=== PATIENT | female | born 1955 | race African-American/Black ===

== ENCOUNTER 2017-08-29 15:39 | Inpatient (IN) | payer OTHER ==
[~2017-08-29] VITALS: Ht 165.1 cm; Wt 63.5 kg
[2017-08-29 16:19] VITALS: BP 78/62
[2017-08-29 16:48] LABS: BASOPHILS % (AUTO) 0.3 % (0.0-2.0); EOSINOPHILS % (AUTO) 0.3 % (0.0-3.0); HEMATOCRIT 31.7 % (37.0-47.0); HEMOGLOBIN 10.4 G/DL (12.0-16.0); LYMPHOCYTES % (AUTO) 7.9 % (20.0-45.0); MEAN CORPUSCULAR VOLUME 81 FL (80-99); MONOCYTES % (AUTO) 12.2 % (1.0-10.0); NEUTROPHILS % (AUTO) 79.3 % (45.0-75.0); PLATELET COUNT 234 K/UL (150-450); RED BLOOD COUNT 3.93 M/UL (4.20-5.40); RED CELL DISTRIBUTION WIDTH 15.3 % (11.6-14.8); WHITE BLOOD COUNT 15.4 K/UL (4.8-10.8)
[2017-08-29 17:19] LABS: ANION GAP 15 mmol/L (5-15); BLOOD UREA NITROGEN 106 mg/dL (7-18); CALCIUM 8.1 MG/DL (8.5-10.1); CARBON DIOXIDE 21 MMOL/L (21-32); CHLORIDE 100 MMOL/L (98-107); CREATININE 7.3 MG/DL (0.55-1.30); POTASSIUM 4.1 MMOL/L (3.5-5.1); SODIUM 136 MMOL/L (136-145)
[2017-08-29 17:32] LABS: ALANINE AMINOTRANSFERASE 16 U/L (12-78); ALBUMIN 2.6 G/DL (3.4-5.0); ALBUMIN/GLOBULIN RATIO 0.5 (1.0-2.7); ALKALINE PHOSPHATASE 89 U/L (46-116); ASPARTATE AMINO TRANSFERASE 21 U/L (15-37); BILIRUBIN,TOTAL 0.2 MG/DL (0.2-1.0); CKMB 6.6 NG/ML (0.0-3.6); CREATINE KINASE 170 U/L (26-308)
[2017-08-29 17:37] LABS: APPEARANCE,URINE CLOUDY; BILIRUBIN, URINE 2+ (NEGATIVE); GLUCOSE, URINE (UA) NEGATIVE (NEGATIVE); KETONES,URINE NEGATIVE (NEGATIVE); LEUKOCYTE ESTERASE ,URINE 2+ (NEGATIVE); NITRITE,URINE NEGATIVE (NEGATIVE); PH,URINE 5 (4.5-8.0); PROTEIN,URINE 1+ (NEGATIVE); UROBILINOGEN,URINE 1 MG/DL (0.0-1.0)
[2017-08-29] MEDS ORDERED: cefTRIAXone 1 GM in NS 55 ML IVPB ONE (17:45)
[2017-08-29 17:58] LABS: COLOR,URINE YELLOW
--- NOTE | 2017-08-29 17:58 | Diagnostic Imaging Report ---
Indication: Shortness of breath Technique: XRAY Chest 1v Comparison: None Findings: Heart size and mediastinal contours are within normal limits. Atherosclerotic calcification is noted in the aortic arch. There are increased interstitial markings with a basilar and peripheral predominance. Subtle asymmetry of findings on the left where there is subtle hazy opacity. Developing infiltrate is not entirely excluded. No pleural effusion or pneumothorax. No acute osseous abnormality seen. Impression: Reticular markings with a peripheral and basilar predominance suggesting interstitial lung disease. Slight asymmetric haziness in the left lower lung. Developing infectious infiltrate not entirely excluded. Clinical correlation follow-up exam recommended.
[2017-08-29] MEDS ORDERED: Bactrim-DS 1 tab ORAL ONE (18:30)
[2017-08-29 18:43] VITALS: BP 110/58
--- NOTE | 2017-08-29 18:48 | Emergency Room Report ---
History of Present Illness General Chief Complaint: General Complaint Source: Patient, EMS Present Illness HPI Patient presents with complaints of shortness of breath Patient was found in her car Reports that she has been sleeping therefore last few days Extremely weak Denies any chest pain Also reports diarrhea Patient has seen blood in the diarrhea as well Patient reports being HIV positive Has cardiac disease denies any history of kidney issues patient reports drug abuse in the recent past Allergies: Coded Allergies: No Known Allergies (Unverified , 08/29/17) Patient History Past Medical History: see triage record Pertinent Family History: none Reviewed Nursing Documentation: PMH: Agreed; PSxH: Agreed Nursing Documentation-PMH Past Medical History: No History, Except For Hx Hypertension: Yes Hx Asthma: Yes History Of Psychiatric Problem: Yes - DRUG ABUSE Review of Systems All Other Systems: negative except mentioned in HPI Physical Exam Vital Signs Date Time Temp Pulse Resp B/P (MAP) Pulse Ox O2 Delivery O2 Flow Rate FiO2 08/29/17 15:32 97.5 90 20 83/38 90 Room Air 97.5 Sp02 EP Interpretation: reviewed, abnormal - Low interpretation a 90% on 2 L, patient is saturating at 98% which is normal oxygenation General Appearance: no apparent distress - However appears weak Head: normocephalic, atraumatic Eyes: bilateral eye PERRL, bilateral eye EOMI ENT: hearing grossly normal, normal pharynx, TMs + canals normal, uvula midline Neck: full range of motion, supple, no meningismus, no bony tend Respiratory: no respiratory distress, no retraction, no accessory muscle use, crackles - Both lower lobes Cardiovascular #1: normal peripheral pulses, regular rate, rhythm, no edema, no gallop, no JVD, no murmur Gastrointestinal: normal bowel sounds, non tender, soft, no mass, no organomegaly, non-distended, no guarding, no hernia, no pulsatile mass, no rebound Genitourinary: no CVA tenderness Musculoskeletal: normal inspection Neurologic: oriented x3, responsive, sightseeing guide III-XII nml as tested, motor strength/ tone normal, sensory intact Psychiatric: mood/affect normal Skin: other - Patient appears disheveled, multiple skin markings with possible needle coleman also gannon, Lymphatic: normal inspection, no adenopathy Medical Decision Making Diagnostic Impression: Primary Impression: Pneumonia ER Course Patient initial presentation was hypotensive and hypoxic Has done significantly better with IV hydration and oxygenation Patient provided with antibiotics At this time given the complaints in the general presentation will require telemetry admission for further care Labs Test 08/29/17 16:15 08/29/17 17:18 White Blood Count 15.4 K/UL (4.8-10.8) Red Blood Count 3.93 M/UL (4.20-5.40) Hemoglobin 10.4 G/DL (12.0-16.0) Hematocrit 31.7 % (37.0-47.0) Mean Corpuscular Volume 81 FL (80-99) Mean Corpuscular Hemoglobin 26.6 PG (27.0-31.0) Mean Corpuscular Hemoglobin Concent 32.9 G/DL (32.0-36.0) Red Cell Distribution Width 15.3 % (11.6-14.8) Platelet Count 234 K/UL (150-450) Mean Platelet Volume 7.1 FL (6.5-10.1) Neutrophils (%) (Auto) 79.3 % (45.0-75.0) Lymphocytes (%) (Auto) 7.9 % (20.0-45.0) Monocytes (%) (Auto) 12.2 % (1.0-10.0) Eosinophils (%) (Auto) 0.3 % (0.0-3.0) Basophils (%) (Auto) 0.3 % (0.0-2.0) Sodium Level 136 MMOL/L (136-145) Potassium Level 4.1 MMOL/L (3.5-5.1) Chloride Level 100 MMOL/L (98-107) Carbon Dioxide Level 21 MMOL/L (21-32) Anion Gap 15 mmol/L (5-15) Blood Urea Nitrogen 106 mg/dL (7-18) Creatinine 7.3 MG/DL (0.55-1.30) Estimat Glomerular Filtration Rate 5.6 mL/min (>60) Glucose Level 95 MG/DL (74-106) Lactic Acid Level 1.30 mmol/L (0.66-2.22) Calcium Level 8.1 MG/DL (8.5-10.1) Total Bilirubin 0.2 MG/DL (0.2-1.0) Aspartate Amino Transf (AST/SGOT) 21 U/L (15-37) Alanine Aminotransferase (ALT/SGPT) 16 U/L (12-78) Alkaline Phosphatase 89 U/L (46-116) Total Creatine Kinase 170 U/L (26-308) Creatine Kinase MB 6.6 NG/ML (0.0-3.6) Creatine Kinase MB Relative Index 3.8 Troponin I 0.041 ng/mL (0.000-0.056) Pro-B-Type Natriuretic Peptide 895 pg/mL (0-125) Total Protein 7.6 G/DL (6.4-8.2) Albumin 2.6 G/DL (3.4-5.0) Globulin 5.0 g/dL Albumin/Globulin Ratio 0.5 (1.0-2.7) Lipase 69 U/L (73-393) Urine Color Yellow Urine Appearance Cloudy Urine pH 5 (4.5-8.0) Urine Specific [place] 1.025 (1.005-1.035) Urine Protein 1+ (NEGATIVE) Urine Glucose (UA) Negative (NEGATIVE) Urine Ketones Negative (NEGATIVE) Urine Occult Blood Negative (NEGATIVE) Urine Nitrite Negative (NEGATIVE) Urine Bilirubin 2+ (NEGATIVE) Urine Ictotest Positive Urine Urobilinogen 1 MG/DL (0.0-1.0) Urine Leukocyte Esterase 2+ (NEGATIVE) Urine RBC 0-2 /HPF (0 - 2) Urine WBC 0-2 /HPF (0 - 2) Urine Squamous Epithelial Cells Few /LPF (NONE/OCC) Urine Amorphous Sediment Moderate /LPF (NONE) Urine Bacteria Few /HPF (NONE) Urine Opiates Screen Negative (NEGATIVE) Urine Barbiturates Screen Negative (NEGATIVE) Phencyclidine (PCP) Screen Negative (NEGATIVE) Urine Amphetamines Screen Positive (NEGATIVE) Urine Benzodiazepines Screen Negative (NEGATIVE) Urine Cocaine Screen Positive (NEGATIVE) Urine Marijuana (THC) Screen Negative (NEGATIVE) Rhythm Strip Diag. Results EP Interpretation: yes Rate: 88 Rhythm: NSR, no PVC's, no ectopy Chest X-Ray Diagnostic Results Chest X-Ray Diagnostic Results : Chest X-Ray Ordered: Yes # of Views/Limited/Complete: 1 View Indication: Shortness of Breath EP Interpretation: Yes Interpretation: no consolidation, no effusion, no pneumothorax, other - Mild his noticed left lower lobe compared to right side questionable interstitial disease versus acute change, Impression: Other - Left lower lobe infiltrate Electronically Signed by: Ali Jamehdor, DO Last Vital Signs Date Time Temp Pulse Resp B/P (MAP) Pulse Ox O2 Delivery O2 Flow Rate FiO2 08/29/17 16:19 90 17 78/62 98 Room Air 08/29/17 15:32 97.5 97.5 Status: improved Disposition: ADMITTED INPATIENT Condition: Serious Referrals: [facility],REFERR[facility] (PCP) Abiola Caruso DO Aug 29, 2017 18:47
[2017-08-29] MEDS ORDERED: UNOBMED (19:14)
[2017-08-29] MEDS ORDERED: LORazepam Inj 2mg/ml 1ml IV PRN (19:45)
[2017-08-29] MEDS ORDERED: Albuterol/Ipratropium 3ml neb HHN PRN (19:45)
[2017-08-29] MEDS ORDERED: Morphine Sulfate 4mg/ml Inj IVP PRN (19:45)
[2017-08-29] MEDS ORDERED: Miralax 17gm pkt ORAL PRN (19:45)
[2017-08-29 20:45] VITALS: BP 114/54
[2017-08-29] MEDS ORDERED: PPD Tuberculin Skin Test 5TU IDERMAL ONE (21:00)
[2017-08-29] MEDS ORDERED: Vancomycin 1 GM in D5W 275 ML IVPB ONE (23:00)
[2017-08-30] VITALS: BP 101/59
[2017-08-30 04:00] VITALS: BP 99/52
[2017-08-30] MEDS ORDERED: LORazepam Inj 2mg/ml 1ml IV PRN ×2 (08:45→17:30)
--- NOTE | 2017-08-30 08:56 | Consultation ---
Consult Note Consult Note asked to eval for renal failure- Patient presents with complaints of shortness of breath Patient was found in her car Reports that she has been sleeping therefore last few days Extremely weak Denies any chest pain Also reports diarrhea Patient has seen blood in the diarrhea as well Patient reports being HIV positive Has cardiac disease denies any history of kidney issues patient reports drug abuse in the recent past Past Medical History: No History, Except For Hx Hypertension: Yes Hx Asthma: Yes History Of Psychiatric Problem: Yes - DRUG ABUSE Assessment/Plan Renal failure , Acute / Chronic Anemia Amphetamine and coccaine abuse Plan: [facility] Hydrate 2D Echo DIANE GOFF Aug 30, 2017 08:56
[2017-08-30] MEDS ORDERED: D5NS 1,000 ML IV SCH (09:30)
[2017-08-30 10:54] LABS: HEMATOCRIT 30.7 % (37.0-47.0); HEMOGLOBIN 9.7 G/DL (12.0-16.0); MEAN CORPUSCULAR VOLUME 81 FL (80-99); PLATELET COUNT 237 K/UL (150-450); RED BLOOD COUNT 3.77 M/UL (4.20-5.40); RED CELL DISTRIBUTION WIDTH 15.3 % (11.6-14.8); WHITE BLOOD COUNT 9.6 K/UL (4.8-10.8)
[2017-08-30] MEDS ORDERED: cefTRIAXone 1gm/D5W 55ml IVPB SCH ×2 (11:00)
[2017-08-30 11:11] LABS: ALBUMIN 2.3 G/DL (3.4-5.0); ANION GAP 6 mmol/L (5-15); BLOOD UREA NITROGEN 67 mg/dL (7-18); CARBON DIOXIDE 27 MMOL/L (21-32); CHLORIDE 104 MMOL/L (98-107); PHOSPHORUS 3.2 MG/DL (2.5-4.9); POTASSIUM 3.4 MMOL/L (3.5-5.1); SODIUM 137 MMOL/L (136-145)
[2017-08-30 11:36] LABS: ALANINE AMINOTRANSFERASE 16 U/L (12-78); ALBUMIN 2.2 G/DL (3.4-5.0); ALBUMIN/GLOBULIN RATIO 0.5 (1.0-2.7); ALKALINE PHOSPHATASE 79 U/L (46-116); ANION GAP 9 mmol/L (5-15); ASPARTATE AMINO TRANSFERASE 21 U/L (15-37); BILIRUBIN,TOTAL 0.2 MG/DL (0.2-1.0); BLOOD UREA NITROGEN 66 mg/dL (7-18); CARBON DIOXIDE 26 MMOL/L (21-32); CHLORIDE 103 MMOL/L (98-107); CHOLESTEROL 107 MG/DL (< 200); CREATINE KINASE 131 U/L (26-308); FERRITIN 67 NG/ML (8-388); GAMMA GLUTAMYL TRANSPEPTIDASE < 3 U/L (5-85); HDL CHOLESTEROL 33 MG/DL (40-60); PHOSPHORUS 3.2 MG/DL (2.5-4.9); POTASSIUM 3.4 MMOL/L (3.5-5.1); SODIUM 138 MMOL/L (136-145); TRIGLYCERIDES 104 MG/DL (30-150)
[2017-08-30] MEDS ORDERED: Morphine Sulfate 4mg/ml Inj IVP PRN ×2 (11:45→17:30)
[2017-08-30 11:59] LABS: % IRON SATURATION 7 % (15-50); IRON 18 ug/dL (50-175); TOTAL IRON BINDING CAPACITY 247 ug/dL (250-450)
--- NOTE | 2017-08-30 12:00 | Consultation ---
DATE OF CONSULTATION: 08/30/2017 GASTROENTEROLOGY CONSULTATION CONSULTING PHYSICIAN: Alber Del Valle M.D. CHIEF COMPLAINT: Weight loss, rectal bleeding, abdominal pain. HISTORY OF PRESENT ILLNESS: This is a 61-year-old female, diagnosed of HIV, who was admitted to the hospital with complaint of having abdominal pain, bloody stools, diarrhea for 3 days, losing weight. She is also actively using drugs. She admits to smoking cocaine. PAST MEDICAL HISTORY: 1. HIV. 2. Hypertension. 3. Borderline diabetes. ALLERGIES: No known drug allergies. MEDICATIONS: Please see medication reconciliation list. SOCIAL HISTORY: She smokes one pack of cigarettes for every 3 days. Denies any alcohol usage. Admits to using cocaine. FAMILY HISTORY: Noncontributory. PAST SURGICAL HISTORY: Some arm surgeries. No abdominal surgeries. REVIEW OF SYSTEMS: Twelve-point review of systems was performed and pertinent positives in HPI. PHYSICAL EXAMINATION: VITAL SIGNS: Temperature 97.7, pulse 81, respirations 19, and blood pressure 99/52. HEENT: Normocephalic and atraumatic. Sclerae anicteric. NECK: Supple. No evidence of obvious lymphadenopathy. CARDIOVASCULAR: Regular rate and rhythm. Plus S1, S2. No obvious murmur. LUNGS: Clear to auscultation bilaterally. ABDOMEN: Positive bowel sounds. Soft and nontender. No rebound. No guarding. No peritoneal sign. EXTREMITIES: No cyanosis, no clubbing, no edema. LABORATORY DATA: White count 9.6, hemoglobin 9.7, and platelet count 237,000. Sodium 137, potassium 3.4, BUN 67, creatinine 3.0. Admission creatinine was 7.3. ASSESSMENT AND PLAN: This is a 61-year-old female with HIV, weight loss, possibly GI bleeding, diarrhea, acute renal insufficiency with BUN on admission of 106 and creatinine 7.3. PLAN: Anemia workup. Send stool for OB. Send stool for culture. Send stool for C. difficile. Start the patient on Marinol for appetite stimulant. Most probably, HIV-related weight loss. Follow with ID. Follow labs. Possible GI procedure on Saturday if needed. Alber Del Valle M.D. DR: Mary JOB#: [id number] CC:
[2017-08-30 12:31] LABS: APPEARANCE,URINE CLEAR; BILIRUBIN, URINE NEGATIVE (NEGATIVE); COLOR,URINE PALE YELLOW; GLUCOSE, URINE (UA) NEGATIVE (NEGATIVE); KETONES,URINE NEGATIVE (NEGATIVE); LEUKOCYTE ESTERASE ,URINE NEGATIVE (NEGATIVE); NITRITE,URINE NEGATIVE (NEGATIVE); PH,URINE 6 (4.5-8.0); PROTEIN,URINE 2+ (NEGATIVE); UROBILINOGEN,URINE NORMAL MG/DL (0.0-1.0)
--- NOTE | 2017-08-30 15:28 | History and Physical ---
History of Present Illness General Date patient seen: Aug 30, 2017 Reason for Hospitalization: General Complaint Present Illness HPI 61 year old female with hx of HIV presents with complaints of shortness of breath. Extremely weak, with diarrhea for some time. She looked cachectic and dehydrated. Pt was in renal failure and admitted to telemetry for further treatment. Allergies: Coded Allergies: No Known Allergies (Unverified , 08/29/17) Medication History Miscellaneous Medications Unable to Obtain Medications (Unable To Obtain Meds), (Reported) Patient History Healthcare decision maker Resuscitation status Advanced Directive on File Past Medical/Surgical History Past Medical/Surgical History: (1) HIV disease Review of Systems All Other Systems: negative except mentioned in HPI Physical Exam General Appearance: WD/WN Lines, tubes and drains: peripheral HEENT: normocephalic, atraumatic Neck: non-tender, normal alignment Respiratory/Chest: chest wall non-tender, lungs clear Breasts: no masses Cardiovascular/Chest: normal peripheral pulses Abdomen: normal bowel sounds, non tender Extremities: normal range of motion, non-tender Skin Exam: normal pigmentation Last 24 Hour Vital Signs Date Time Temp Pulse Resp B/P (MAP) Pulse Ox O2 Delivery O2 Flow Rate FiO2 08/30/17 12:00 75 08/30/17 08:37 76 20 Room Air 08/30/17 08:00 77 08/30/17 04:00 97.7 81 19 99/52 93 Room Air 97.7 08/30/17 04:00 84 08/30/17 00:00 85 08/30/17 00:00 97.6 89 18 101/59 97 Room Air 97.6 08/29/17 21:50 97.5 87 12 114/54 100 Room Air 97.5 08/29/17 20:45 87 12 114/54 100 Room Air 08/29/17 18:43 85 14 110/58 99 Room Air 08/29/17 16:19 90 17 78/62 98 Room Air 08/29/17 15:32 97.5 90 20 83/38 90 Room Air 97.5 Intake and Output 08/29/17 08/30/17 19:00 07:00 Intake Total 0 ml 1318.3 ml Output Total 400 ml Balance 0 ml 918.3 ml Intake Oral 0 ml IV Total 1318.3 ml Output Urine Total 400 ml # Voids 4 # Bowel Movements 2 Laboratory Tests Test 08/29/17 16:15 08/29/17 17:18 08/30/17 10:30 08/30/17 11:40 White Blood Count 15.4 K/UL (4.8-10.8) H Pending Red Blood Count 3.93 M/UL (4.20-5.40) L 3.77 M/UL (4.20-5.40) L Hemoglobin 10.4 G/DL (12.0-16.0) L 9.7 G/DL (12.0-16.0) L Hematocrit 31.7 % (37.0-47.0) L 30.7 % (37.0-47.0) L Mean Corpuscular Volume 81 FL (80-99) 81 FL (80-99) Mean Corpuscular Hemoglobin 26.6 PG (27.0-31.0) L 25.7 PG (27.0-31.0) L Mean Corpuscular Hemoglobin Concent 32.9 G/DL (32.0-36.0) 31.6 G/DL (32.0-36.0) L Red Cell Distribution Width 15.3 % (11.6-14.8) H 15.3 % (11.6-14.8) H Platelet Count 234 K/UL (150-450) 237 K/UL (150-450) Mean Platelet Volume 7.1 FL (6.5-10.1) 6.4 FL (6.5-10.1) L Neutrophils (%) (Auto) 79.3 % (45.0-75.0) H % (45.0-75.0) Lymphocytes (%) (Auto) 7.9 % (20.0-45.0) L % (20.0-45.0) Monocytes (%) (Auto) 12.2 % (1.0-10.0) H % (1.0-10.0) Eosinophils (%) (Auto) 0.3 % (0.0-3.0) % (0.0-3.0) Basophils (%) (Auto) 0.3 % (0.0-2.0) % (0.0-2.0) Sodium Level 136 MMOL/L (136-145) 138 MMOL/L (136-145) Potassium Level 4.1 MMOL/L (3.5-5.1) 3.4 MMOL/L (3.5-5.1) L Chloride Level 100 MMOL/L (98-107) 103 MMOL/L (98-107) Carbon Dioxide Level 21 MMOL/L (21-32) 26 MMOL/L (21-32) Anion Gap 15 mmol/L (5-15) 9 mmol/L (5-15) Blood Urea Nitrogen 106 mg/dL (7-18) H 66 mg/dL (7-18) H Creatinine 7.3 MG/DL (0.55-1.30) H 3.0 MG/DL (0.55-1.30) H Estimat Glomerular Filtration Rate 5.6 mL/min (>60) 19.1 mL/min (>60) Glucose Level 95 MG/DL (74-106) 101 MG/DL (74-106) Lactic Acid Level 1.30 mmol/L (0.66-2.22) Calcium Level 8.1 MG/DL (8.5-10.1) L 8.0 MG/DL (8.5-10.1) L Total Bilirubin 0.2 MG/DL (0.2-1.0) 0.2 MG/DL (0.2-1.0) Aspartate Amino Transf (AST/SGOT) 21 U/L (15-37) 21 U/L (15-37) Alanine Aminotransferase (ALT/SGPT) 16 U/L (12-78) 16 U/L (12-78) Alkaline Phosphatase 89 U/L (46-116) 79 U/L (46-116) Total Creatine Kinase 170 U/L (26-308) 131 U/L (26-308) Creatine Kinase MB 6.6 NG/ML (0.0-3.6) H Creatine Kinase MB Relative Index 3.8 Troponin I 0.041 ng/mL (0.000-0.056) Pro-B-Type Natriuretic Peptide 895 pg/mL (0-125) H 166 pg/mL (0-125) H Total Protein 7.6 G/DL (6.4-8.2) 6.9 G/DL (6.4-8.2) Albumin 2.6 G/DL (3.4-5.0) L 2.2 G/DL (3.4-5.0) L Globulin 5.0 g/dL 4.7 g/dL Albumin/Globulin Ratio 0.5 (1.0-2.7) L 0.5 (1.0-2.7) L Lipase 69 U/L (73-393) L Urine Color Yellow Pale yellow Urine Appearance Cloudy Clear Urine pH 5 (4.5-8.0) 6 (4.5-8.0) Urine Specific [place] 1.025 (1.005-1.035) 1.015 (1.005-1.035) Urine Protein 1+ (NEGATIVE) H 2+ (NEGATIVE) H Urine Glucose (UA) Negative (NEGATIVE) Negative (NEGATIVE) Urine Ketones Negative (NEGATIVE) Negative (NEGATIVE) Urine Occult Blood Negative (NEGATIVE) 2+ (NEGATIVE) H Urine Nitrite Negative (NEGATIVE) Negative (NEGATIVE) Urine Bilirubin 2+ (NEGATIVE) H Negative (NEGATIVE) Urine Ictotest Positive Urine Urobilinogen 1 MG/DL (0.0-1.0) H Normal MG/DL (0.0-1.0) Urine Leukocyte Esterase 2+ (NEGATIVE) H Negative (NEGATIVE) Urine RBC 0-2 /HPF (0 - 2) 2-4 /HPF (0 - 2) H Urine WBC 0-2 /HPF (0 - 2) 0-2 /HPF (0 - 2) Urine Squamous Epithelial Cells Few /LPF (NONE/OCC) Few /LPF (NONE/OCC) Urine Amorphous Sediment Moderate /LPF (NONE) H Urine Bacteria Few /HPF (NONE) Occasional /HPF (NONE) Urine Opiates Screen Negative (NEGATIVE) Urine Barbiturates Screen Negative (NEGATIVE) Phencyclidine (PCP) Screen Negative (NEGATIVE) Urine Amphetamines Screen Positive (NEGATIVE) H Urine Benzodiazepines Screen Negative (NEGATIVE) Urine Cocaine Screen Positive (NEGATIVE) H Urine Marijuana (THC) Screen Negative (NEGATIVE) Differential Total Cells Counted 100 Neutrophils % (Manual) 81 % (45-75) H Lymphocytes % (Manual) 14 % (20-45) L Monocytes % (Manual) 3 % (1-10) Eosinophils % (Manual) 2 % (0-3) Basophils % (Manual) 0 % (0-2) Band Neutrophils 0 % (0-8) Lymphocytes Pending Platelet Estimate Adequate Platelet Morphology Normal Hypochromasia 1+ Anisocytosis 1+ Erythrocyte Sedimentation Rate 94 MM/HR (0-30) H Reticulocyte Count 0.8 % (0.0-2.0) Prothrombin Time 10.3 SEC (9.30-11.50) Prothromb Time International Ratio 1.0 (0.9-1.1) Activated Partial Thromboplast Time 31 SEC (23-33) Hemoglobin A1c 6.8 % (4.3-6.0) H Uric Acid 11.1 MG/DL (2.6-7.2) H Phosphorus Level 3.2 MG/DL (2.5-4.9) Magnesium Level 2.6 MG/DL (1.8-2.4) H Iron Level 18 ug/dL (50-175) L Total Iron Binding Capacity 247 ug/dL (250-450) L Percent Iron Saturation 7 % (15-50) L Unsaturated Iron Binding 229 ug/dL (112-346) Ferritin 67 NG/ML (8-388) Gamma Glutamyl Transpeptidase < 3 U/L (5-85) L C-Reactive Protein, Quantitative 21.1 mg/dL (0.00-0.90) H Triglycerides Level 104 MG/DL (30-150) Cholesterol Level 107 MG/DL (< 200) LDL Cholesterol 62 mg/dL (<100) HDL Cholesterol 33 MG/DL (40-60) L Cholesterol/HDL Ratio 3.2 (3.3-4.4) L Vitamin B12 Level 440 PG/ML (193-986) Folate 12.2 NG/ML (8.6-58.9) Thyroid Stimulating Hormone (TSH) 1.609 uiU/mL (0.358-3.740) Percent CD3 Cells Pending Absolute CD3 Count Pending Percent CD4 Cells Pending Absolute CD4 Count Pending T-Lymphocyte CD4/CD8 Ratio Pending Percent CD8 Cells Pending Absolute CD8 Count Pending Urine Eosinophils None seen Urine Random Sodium 53 mmol/L (20-110) Urine Potassium Timed 13 mmol/L (12-62) Microbiology Date/Time Source Procedure Growth Status 08/29/17 16:47 Nasal Nares Influenza Types A,B Antigen (CHIDI) - Final Complete Height (Feet): 5 Height (Inches): 4.00 Weight (Pounds): 140 Medications Current Medications Medications (Trade) Dose Ordered Sig/Castillo Route PRN Reason Start Time Stop Time Status Last Admin Dose Admin Acetaminophen (Tylenol) 650 mg Q4H PRN ORAL FEVER 08/29/17 19:45 09/28/17 19:44 Albuterol/ Ipratropium (Albuterol/ Ipratropium) 3 ml Q4H PRN HHN Shortness of Breath 08/29/17 19:45 09/03/17 19:44 Ceftriaxone Sodium 1 gm/ Dextrose 55 ml @ 110 mls/hr Q24H IVPB 08/30/17 11:00 09/06/17 10:59 08/30/17 11:10 Dextrose (Dextrose 50%) 25 ml STAT PRN IV Hypoglycemia BS 60-69 mg/dL 08/29/17 20:15 09/28/17 20:14 Dextrose (Dextrose 50%) 50 ml STAT PRN IV Hypoglycemia BS<60mg/dL 08/29/17 19:45 09/28/17 19:44 Dextrose/Sodium Chloride 1,000 ml @ 75 mls/hr [id number] IV 08/30/17 09:30 09/29/17 09:29 08/30/17 11:14 Dronabinol (Marinol) 2.5 mg BID ORAL 08/30/17 18:00 09/29/17 17:59 Lorazepam (Ativan 2mg/ml 1ml) 1 mg Q4H PRN IV For Anxiety 08/30/17 08:45 09/05/17 19:44 Morphine Sulfate (Morphine Sulfate) 2 mg Q4H PRN IVP Severe Pain (Pain Scale 7-10) 08/30/17 11:45 09/05/17 19:44 Ondansetron HCl (Zofran) 4 mg Q6H PRN IVP Nausea & Vomiting 08/29/17 19:45 09/28/17 19:44 Polyethylene Glycol (Miralax) 17 gm DAILYPRN PRN ORAL Constipation 08/29/17 19:45 09/28/17 19:44 Vancomycin HCl (Vanco rx to dose) 1 ea DAILYPRN PRN MISC RX TO DOSE PROTOCOL 08/29/17 22:00 09/28/17 21:59 Assessment/Plan Problem List: (1) ATN (acute tubular necrosis) ICD Codes: N17.0 - Acute kidney failure with tubular necrosis SNOMED: 48224867 (2) Severe protein-calorie malnutrition ICD Codes: E43 - Unspecified severe protein-calorie malnutrition SNOMED: 555869699 (3) HIV disease ICD Codes: B20 - Human immunodeficiency virus [HIV] disease SNOMED: 72683499 Assessment/Plan IV hydration check electrolytes renal US ID and GI evaluation. Cordell Mitchell MD Aug 30, 2017 15:28
[2017-08-30] MEDS ORDERED: Iron Sucrose 200 MG in NS 110 ML IV ONE (17:00)
[2017-08-30] MEDS: D5NS 1,000 ML IV SCH (17:27)
[2017-08-30] MEDS ORDERED: Albuterol/Ipratropium 3ml neb HHN PRN (17:30)
[2017-08-30] MEDS ORDERED: Miralax 17gm pkt ORAL PRN (17:30)
[2017-08-30] MEDS: Dronabinol 2.5mg Cap ORAL SCH (17:34)
[2017-08-30] MEDS ORDERED: Dronabinol 2.5mg Cap ORAL SCH (18:00)
[2017-08-30 20:00] VITALS: BP 97/59
--- NOTE | 2017-08-30 22:55 | Consultation ---
Consult Note Consult Note Note was dictated # ? Corey Hutchison MD Aug 30, 2017 22:55
[2017-08-31] VITALS (7 sets, daily range): BP systolic 92–110; BP diastolic 55–74
--- NOTE | 2017-08-31 04:00 | Consultation ---
DATE OF CONSULTATION: 08/31/2017 INFECTIOUS DISEASE CONSULTATION CONSULTING PHYSICIAN: Corey Hutchison M.D. HISTORY OF PRESENT ILLNESS: The patient is a 61-year-old female who came to the hospital due to shortness of breath, however, no cough. No fever or chills. The patient has also been complaining of having lower abdominal pain associated with diarrhea x3. The patient mentioned she has seen blood clots passing with bowel movements recently. Infectious Disease consultation has been requested for further evaluation of the patient's antibiotic management. The patient has a history of HIV diagnosed in 1996. According to her, she has had regular followup with her HIV provider at [facility]. The patient's CD4 count is over 200 and has undetectable viral load. PAST MEDICAL HISTORY: 1. History of HIV, reportedly CD4 count of more than 200 and undetectable viral load. 2. The patient is a smoker of cigarette and also smokes cocaine. 3. History of IV drug abuse in the past. According to patient, has no history of hepatitis. MEDICATIONS: The patient does not recall the name of her HIV medications. The patient has been started on IV Rocephin and vancomycin. ALLERGIES: No known drug allergies. SOCIAL HISTORY: As mentioned above. FAMILY HISTORY: Not contributing PHYSICAL EXAMINATION: VITAL SIGNS: Temperature 98 degrees, blood pressure 97/59, pulse 86, and respiratory rate 18. HEENT: Mild pale conjunctivae. NECK: No lymphadenopathy. CHEST: Clear. HEART: S1 and S2. ABDOMEN: Soft. Lower abdominal tenderness. EXTREMITIES: No cyanosis. NEUROLOGIC: Awake. LABORATORY AND DIAGNOSTIC DATA: White blood cell count is 15.4, today is 9.6; hemoglobin 9.7; and platelets 237. UA unremarkable. BUN 66 and creatinine 3. ALT, AST, and alkaline phosphatase unremarkable. CD4 count pending. Influenza screening is negative. Chest x-ray marking with perihilar and basilar predominance suggesting interstitial lung disease. ASSESSMENT: The patient is a 61-year-old female with, 1. Human immunodeficiency virus, diagnosed in 1996 with undetectable viral load and CD4 count more than 200 (unknown list of HIV medications). 2. Diarrhea x3 days. 3. ? lower gastrointestinal bleed. 4. Rule out colitis, ischemic versus infectious. 5. History of recent weight loss in the last four days due to lack of appetite. 6. Afebrile. 7. Status post leukocytosis. 8. Doubt pneumonia or opportunistic infections in view of the patient's CD4 count of more than 200 and lack of cough and fever. 9. Normal lactic acid ( to have ischemic colitis). PLAN: 1. We will continue the patient on Rocephin, add Flagyl. 2. We will hold IV vancomycin. 3. We will send stool for C. difficile culture, occult blood, ova and parasites. 4. Monitor CBC. 5. Monitor BMP. 6. Follow Nephrology recommendations regarding renal insufficiency. 7. Recommend GI consultation. 8. Blood culture. 9. Based on the patient's clinical course and labs, we will give further recommendations. 10. The patient was advised to bring her list of medications and to resume in this hospitalization. This was communicated with the nurse. Corey Hutchison M.D. DR: DIANA JOB#: [id number] CC:
[2017-08-31] MEDS: D5NS 1,000 ML IV SCH ×3 (04:14→19:01)
[2017-08-31] MEDS: metroNIDAZOLE 500mg tab ORAL SCH ×3 (05:12→21:51)
[2017-08-31 07:12] LABS: BASOPHILS % (AUTO) 0.8 % (0.0-2.0); EOSINOPHILS % (AUTO) 1.5 % (0.0-3.0); HEMATOCRIT 30.3 % (37.0-47.0); HEMOGLOBIN 9.7 G/DL (12.0-16.0); LYMPHOCYTES % (AUTO) 25.6 % (20.0-45.0); MEAN CORPUSCULAR VOLUME 84 FL (80-99); MONOCYTES % (AUTO) 12.7 % (1.0-10.0); NEUTROPHILS % (AUTO) 59.4 % (45.0-75.0); PLATELET COUNT 232 K/UL (150-450); RED BLOOD COUNT 3.62 M/UL (4.20-5.40); RED CELL DISTRIBUTION WIDTH 15.5 % (11.6-14.8); WHITE BLOOD COUNT 8.5 K/UL (4.8-10.8)
[2017-08-31 07:43] LABS: ALANINE AMINOTRANSFERASE 14 U/L (12-78); ALBUMIN 2.3 G/DL (3.4-5.0); ALBUMIN/GLOBULIN RATIO 0.5 (1.0-2.7); ALKALINE PHOSPHATASE 79 U/L (46-116); ANION GAP 4 mmol/L (5-15); ASPARTATE AMINO TRANSFERASE 18 U/L (15-37); BILIRUBIN,TOTAL 0.2 MG/DL (0.2-1.0); BLOOD UREA NITROGEN 36 mg/dL (7-18); CALCIUM 8.3 MG/DL (8.5-10.1); CARBON DIOXIDE 30 MMOL/L (21-32); CHLORIDE 109 MMOL/L (98-107); CREATININE 1.5 MG/DL (0.55-1.30); POTASSIUM 3.9 MMOL/L (3.5-5.1); SODIUM 143 MMOL/L (136-145)
[2017-08-31 08:12] LABS: PHOSPHORUS 2.6 MG/DL (2.5-4.9)
--- NOTE | 2017-08-31 09:20 | Diagnostic Imaging Report ---
Indication:Elevated Bun and Creatinine. Technique: Grayscale and duplex Doppler imaging of the kidneys performed. Comparison: None Findings: The size, contour, and echogenicity of both kidneys are within normal limits. Both kidneys between 10 and 11 cm. Minimal pyelocaliectasis demonstrated. There is no hydronephrosis. The IVC and urinary bladder are unremarkable. Monzon catheter noted. Impression: Negative study
[2017-08-31] MEDS: Dronabinol 2.5mg Cap ORAL SCH ×2 (10:00→18:00)
--- NOTE | 2017-08-31 11:34 | Nephrology Progress Note ---
Assessment/Plan Problem List: (1) ATN (acute tubular necrosis) (2) Severe protein-calorie malnutrition (3) HIV disease Assessment Renal failure , Acute / Chronic Anemia Amphetamine and coccaine abuse Plan: [facility]J Hydrate 2D Echo Plan Plan: DC [facility] KJ noted Hydrate slow 2D Echo PT OT monitor renal parameters Subjective ROS Limited/Unobtainable: No Constitutional: Reports: malaise Objective Objective Last 24 Hour Vital Signs Date Time Temp Pulse Resp B/P (MAP) Pulse Ox O2 Delivery O2 Flow Rate FiO2 08/31/17 09:49 75 18 Room Air 08/31/17 08:00 96.6 70 16 104/64 100 Nasal Cannula 1.0 96.6 08/31/17 04:00 98.3 77 20 101/57 96 98.3 08/31/17 00:00 97.9 70 20 92/55 96 97.9 08/30/17 20:35 71 20 Room Air 08/30/17 20:00 98.3 75 18 97/59 100 98.3 08/30/17 16:00 76 08/30/17 12:00 75 Intake and Output 08/30/17 08/31/17 19:00 07:00 Intake Total 890 ml 75 ml Balance 890 ml 75 ml Intake Oral 890 ml IV Total 75 ml Laboratory Tests 08/30/17 11:40: Urine Color Pale yellow, Urine Appearance Clear, Urine pH 6, Urine Specific [place] 1.015, Urine Protein 2+H, Urine Glucose (UA) Negative, Urine Ketones Negative, Urine Occult Blood 2+H, Urine Nitrite Negative, Urine Bilirubin Negative, Urine Urobilinogen Normal, Urine Leukocyte Esterase Negative, Urine RBC 2-4H, Urine WBC 0-2, Urine Squamous Epithelial Cells Few, Urine Bacteria Occasional, Urine Eosinophils None seen, Urine Random Sodium 53, Urine Potassium Timed 13 08/31/17 05:45: White Blood Count 8.5, Red Blood Count 3.62L, Hemoglobin 9.7L, Hematocrit 30.3L , Mean Corpuscular Volume 84, Mean Corpuscular Hemoglobin 26.8L, Mean Corpuscular Hemoglobin Concent 32.1, Red Cell Distribution Width 15.5H, Platelet Count 232, Mean Platelet Volume 6.7, Neutrophils (%) (Auto) 59.4, Lymphocytes (%) (Auto) 25.6, Monocytes (%) (Auto) 12.7H, Eosinophils (%) (Auto) 1.5, Basophils (%) (Auto) 0.8, Sodium Level 143, Potassium Level 3.9, Chloride Level 109H, Carbon Dioxide Level 30, Anion Gap 4L, Blood Urea Nitrogen 36H, Creatinine 1.5H, Estimat Glomerular Filtration Rate 42.7, Glucose Level 95, Uric Acid 9.0H, Calcium Level 8.3L, Phosphorus Level 2.6, Magnesium Level 2.4, Total Bilirubin 0.2, Aspartate Amino Transf (AST/SGOT) 18, Alanine Aminotransferase (ALT/SGPT) 14, Alkaline Phosphatase 79, C-Reactive Protein, Quantitative 10.0H, Pro-B-Type Natriuretic Peptide 89, Total Protein 6.9, Albumin 2.3L, Globulin 4.6, Albumin/Globulin Ratio 0.5L, Random Vancomycin Level 4.2 Height (Feet): 5 Height (Inches): 4.00 Weight (Pounds): 140 General Appearance: no apparent distress, confused Cardiovascular: normal rate Respiratory/Chest: decreased breath sounds Abdomen: soft DIANE GOFF Aug 31, 2017 11:34
[2017-08-31] MEDS: cefTRIAXone 1 GM in D5W 55 ML IVPB SCH (11:48)
[2017-08-31] MEDS ORDERED: 1/2 NS 1000ml IV ONE (14:58)
[2017-08-31] MEDS ORDERED: D5NS 1000ml IV ONE (14:58)
[2017-08-31] MEDS ORDERED: Tubing IV Secondary IV ONE (14:58)
--- NOTE | 2017-08-31 15:08 | Pulmonology Progress Note ---
Assessment/Plan Problems: (1) Hemorrhagic colitis (2) ATN (acute tubular necrosis) (3) Interstitial lung disease (4) Lower GI bleed (5) Severe protein-calorie malnutrition (6) HIV disease Assessment/Plan IV fluids check h/h prn prbc f/u GI recommendation check electrolytes, renal US viewed. continue current treatment. Subjective ROS Limited/Unobtainable: No Interval Events: c/o hunger Constitutional: Reports: no symptoms HEENT: Repors: no symptoms Respiratory: Reports: no symptoms Allergies: Coded Allergies: No Known Allergies (Unverified , 08/29/17) Objective Last 24 Hour Vital Signs Date Time Temp Pulse Resp B/P (MAP) Pulse Ox O2 Delivery O2 Flow Rate FiO2 08/31/17 14:57 96.8 69 17 110/59 99 Room Air 96.8 08/31/17 09:49 75 18 Room Air 08/31/17 08:00 96.6 70 16 104/64 100 Nasal Cannula 1.0 96.6 08/31/17 04:00 98.3 77 20 101/57 96 98.3 08/31/17 00:00 97.9 70 20 92/55 96 97.9 08/30/17 20:35 71 20 Room Air 08/30/17 20:00 98.3 75 18 97/59 100 98.3 08/30/17 16:00 76 Intake and Output 08/30/17 08/31/17 19:00 07:00 Intake Total 890 ml 75 ml Balance 890 ml 75 ml Intake Oral 890 ml IV Total 75 ml Objective General Appearance: cachetic Lines, tubes and drains: peripheral HEENT: normocephalic, atraumatic Neck: non-tender, normal alignment Respiratory/Chest: chest wall non-tender, lungs clear Cardiovascular/Chest: normal peripheral pulses, regular rhythm, regularly irregular Abdomen: normal bowel sounds, non tender, soft Extremities: normal range of motion, normal inspection Microbiology Date/Time Source Procedure Growth Status 08/29/17 16:35 Blood Blood Culture - Preliminary NO GROWTH AFTER 24 HOURS Resulted 08/29/17 16:15 Blood Blood Culture - Preliminary NO GROWTH AFTER 24 HOURS Resulted 08/29/17 19:16 Nasal Nares MRSA Culture - Final NO METHICILLIN RESISTANT STAPH AUREUS... Complete 08/29/17 16:47 Nasal Nares Influenza Types A,B Antigen (CHIDI) - Final Complete 08/29/17 19:16 Rectum VRE Culture - Final NO VANCOMYCIN RESISTANT ENTEROCOCCUS ... Complete Laboratory Tests 08/31/17 05:45: White Blood Count 8.5, Red Blood Count 3.62L, Hemoglobin 9.7L, Hematocrit 30.3L , Mean Corpuscular Volume 84, Mean Corpuscular Hemoglobin 26.8L, Mean Corpuscular Hemoglobin Concent 32.1, Red Cell Distribution Width 15.5H, Platelet Count 232, Mean Platelet Volume 6.7, Neutrophils (%) (Auto) 59.4, Lymphocytes (%) (Auto) 25.6, Monocytes (%) (Auto) 12.7H, Eosinophils (%) (Auto) 1.5, Basophils (%) (Auto) 0.8, Sodium Level 143, Potassium Level 3.9, Chloride Level 109H, Carbon Dioxide Level 30, Anion Gap 4L, Blood Urea Nitrogen 36H, Creatinine 1.5H, Estimat Glomerular Filtration Rate 42.7, Glucose Level 95, Uric Acid 9.0H, Calcium Level 8.3L, Phosphorus Level 2.6, Magnesium Level 2.4, Total Bilirubin 0.2, Aspartate Amino Transf (AST/SGOT) 18, Alanine Aminotransferase (ALT/SGPT) 14, Alkaline Phosphatase 79, C-Reactive Protein, Quantitative 10.0H, Pro-B-Type Natriuretic Peptide 89, Total Protein 6.9, Albumin 2.3L, Globulin 4.6, Albumin/Globulin Ratio 0.5L, Random Vancomycin Level 4.2 Current Medications Medications (Trade) Dose Ordered Sig/Castillo Route PRN Reason Start Time Stop Time Status Last Admin Dose Admin Acetaminophen (Tylenol) 650 mg Q4H PRN ORAL T>100.5 08/30/17 19:45 09/28/17 19:44 Albuterol/ Ipratropium (Albuterol/ Ipratropium) 3 ml Q4H PRN HHN Shortness of Breath 08/30/17 17:30 09/03/17 17:29 Ceftriaxone Sodium 1 gm/ Dextrose 55 ml @ 110 mls/hr Q24H IVPB 08/31/17 11:00 09/06/17 10:59 08/31/17 11:48 Dextrose (Dextrose 50%) 25 ml STAT PRN IV Hypoglycemia BS 60-69 mg/dL 08/30/17 17:30 09/29/17 17:29 Dextrose (Dextrose 50%) 50 ml STAT PRN IV Hypoglycemia BS<60mg/dL 08/30/17 17:30 09/28/17 17:29 Dextrose/Sodium Chloride 1,000 ml @ 75 mls/hr [id number] IV 08/30/17 17:15 09/29/17 09:29 08/31/17 05:14 Dronabinol (Marinol) 2.5 mg BID ORAL 08/30/17 18:00 09/29/17 17:59 08/31/17 10:00 Lorazepam (Ativan 2mg/ml 1ml) 1 mg Q4H PRN IV For Anxiety 08/30/17 17:30 09/05/17 17:29 Methadone HCl (Methadone HCl) 70 mg DAILY ORAL 08/31/17 09:00 09/06/17 15:59 08/31/17 10:00 Metronidazole (Flagyl) 500 mg Q8HR ORAL 08/31/17 06:00 09/07/17 05:59 08/31/17 05:12 Morphine Sulfate (Morphine Sulfate) 2 mg Q4H PRN IVP Severe Pain (Pain Scale 7-10) 08/30/17 17:30 09/05/17 17:29 Ondansetron HCl (Zofran) 4 mg Q6H PRN IVP Nausea & Vomiting 08/30/17 17:30 09/28/17 17:29 Polyethylene Glycol (Miralax) 17 gm DAILYPRN PRN ORAL Constipation 08/30/17 17:30 09/28/17 17:29 Cordell Mitchell MD Aug 31, 2017 15:08
--- NOTE | 2017-08-31 16:07 | General Progress Note ---
Assessment/Plan Assessment/Plan Assessment - Abd pain - diarrhea - HIV - Weight loss - azotemia - ? GI Bleed Recommendations - continue clears - check CT abd/pelvis - follow labs and exam - stool cultures - Marinol - ? Endoscopy Saturday Subjective Allergies: Coded Allergies: No Known Allergies (Unverified , 08/29/17) Subjective Feels OK some abdominal pain on clears requesting solids Objective Last 24 Hour Vital Signs Date Time Temp Pulse Resp B/P (MAP) Pulse Ox O2 Delivery O2 Flow Rate FiO2 08/31/17 14:57 96.8 69 17 110/59 99 Room Air 96.8 08/31/17 09:49 75 18 Room Air 08/31/17 08:00 96.6 70 16 104/64 100 Nasal Cannula 1.0 96.6 08/31/17 04:00 98.3 77 20 101/57 96 98.3 08/31/17 00:00 97.9 70 20 92/55 96 97.9 08/30/17 20:35 71 20 Room Air 08/30/17 20:00 98.3 75 18 97/59 100 98.3 08/30/17 16:00 76 Intake and Output 08/30/17 08/31/17 19:00 07:00 Intake Total 890 ml 75 ml Balance 890 ml 75 ml Intake Oral 890 ml IV Total 75 ml Laboratory Tests 08/31/17 05:45: White Blood Count 8.5, Red Blood Count 3.62L, Hemoglobin 9.7L, Hematocrit 30.3L , Mean Corpuscular Volume 84, Mean Corpuscular Hemoglobin 26.8L, Mean Corpuscular Hemoglobin Concent 32.1, Red Cell Distribution Width 15.5H, Platelet Count 232, Mean Platelet Volume 6.7, Neutrophils (%) (Auto) 59.4, Lymphocytes (%) (Auto) 25.6, Monocytes (%) (Auto) 12.7H, Eosinophils (%) (Auto) 1.5, Basophils (%) (Auto) 0.8, Sodium Level 143, Potassium Level 3.9, Chloride Level 109H, Carbon Dioxide Level 30, Anion Gap 4L, Blood Urea Nitrogen 36H, Creatinine 1.5H, Estimat Glomerular Filtration Rate 42.7, Glucose Level 95, Uric Acid 9.0H, Calcium Level 8.3L, Phosphorus Level 2.6, Magnesium Level 2.4, Total Bilirubin 0.2, Aspartate Amino Transf (AST/SGOT) 18, Alanine Aminotransferase (ALT/SGPT) 14, Alkaline Phosphatase 79, C-Reactive Protein, Quantitative 10.0H, Pro-B-Type Natriuretic Peptide 89, Total Protein 6.9, Albumin 2.3L, Globulin 4.6, Albumin/Globulin Ratio 0.5L, Random Vancomycin Level 4.2 Height (Feet): 5 Height (Inches): 4.00 Weight (Pounds): 140 Objective Thin AA woman NCAT supple CTA RRR Abd (+) diffuse TTP no edema non focal DENY SHEARER Aug 31, 2017 16:07
[2017-08-31] MEDS ORDERED: Iron Sucrose 200 MG in NS 110 ML IV ONE (17:00)
[2017-09-01] VITALS: BP 104/64
[2017-09-01 04:00] VITALS: BP 131/74
[2017-09-01] MEDS: metroNIDAZOLE 500mg tab ORAL SCH ×3 (05:45→21:05)
[2017-09-01 07:21] LABS: BASOPHILS % (AUTO) 0.9 % (0.0-2.0); EOSINOPHILS % (AUTO) 3.4 % (0.0-3.0); HEMATOCRIT 29.6 % (37.0-47.0); HEMOGLOBIN 9.2 G/DL (12.0-16.0); LYMPHOCYTES % (AUTO) 23.7 % (20.0-45.0); MEAN CORPUSCULAR VOLUME 84 FL (80-99); MONOCYTES % (AUTO) 13.7 % (1.0-10.0); NEUTROPHILS % (AUTO) 58.2 % (45.0-75.0); PLATELET COUNT 233 K/UL (150-450); RED BLOOD COUNT 3.51 M/UL (4.20-5.40); RED CELL DISTRIBUTION WIDTH 15.1 % (11.6-14.8); WHITE BLOOD COUNT 5.3 K/UL (4.8-10.8)
[2017-09-01 07:42] LABS: ALANINE AMINOTRANSFERASE 14 U/L (12-78); ALBUMIN 2.3 G/DL (3.4-5.0); ALBUMIN/GLOBULIN RATIO 0.5 (1.0-2.7); ALKALINE PHOSPHATASE 71 U/L (46-116); ANION GAP 2 mmol/L (5-15); ASPARTATE AMINO TRANSFERASE 16 U/L (15-37); BILIRUBIN,TOTAL 0.2 MG/DL (0.2-1.0); BLOOD UREA NITROGEN 14 mg/dL (7-18); CALCIUM 8.4 MG/DL (8.5-10.1); CARBON DIOXIDE 33 MMOL/L (21-32); CHLORIDE 106 MMOL/L (98-107); CREATININE 0.9 MG/DL (0.55-1.30); PHOSPHORUS 2.5 MG/DL (2.5-4.9); POTASSIUM 3.7 MMOL/L (3.5-5.1); SODIUM 141 MMOL/L (136-145)
[2017-09-01 08:00] VITALS: BP 117/70
[2017-09-01] MEDS: Dronabinol 2.5mg Cap ORAL SCH ×2 (08:42→17:49)
--- NOTE | 2017-09-01 10:03 | Diagnostic Imaging Report ---
Indication: Abdominal pain Technique: Continuous helical transaxial imaging of the abdomen and pelvis was obtained from the lung bases to the pubic symphysis. No intravenous contrast was administered. Coronal 2-D reformats were also obtained. Automatic Exposure Control was utilized. Total Dose length Product (DLP): 457.[address] Dose Index Volume (CTDIvol): 9.67 mGy Comparison: none Findings: Coarse interstitial opacities are demonstrated at the periphery of both lung bases suspicious for fibrosis. Associated patchy groundglass opacification. Gallbladder is contracted. The wall of the stomach appears abnormally thick. The evaluation of this is limited as the stomach is nondistended. Consider EGD. No evidence of bowel obstruction. Relative paucity of intra-abdominal fat limits evaluation on this examination. No obvious free fluid or free air. Visualization of normal-appearing appendix. Anasarca noted. Degenerative disc disease with vacuum phenomenon at L5-S1. Lower lumbar facet arthropathy. The wall of the left hemicolon may be slightly thickened. This is questionable. IMPRESSION: Abnormal appearance of the wall of the stomach which appears thick. Please consider EGD for further evaluation. Questionable thickening of the left hemicolon wall. Colitis not excluded. Atherosclerotic disease. Pulmonary fibrosis suspected. Hiatal hernia Normal appendix Anasarca. Limited evaluation as described above [facility] has communicated the preliminary results to the Emergency Department. Their findings are largely concordant with this report. The CT scanner at [facility] is accredited by the [employer] and the scans are performed using dose optimization techniques as appropriate to a performed exam including Automatic Exposure control.
[2017-09-01] MEDS: cefTRIAXone 1 GM in D5W 55 ML IVPB SCH (11:52)
[2017-09-01 12:00] VITALS: BP 130/75
--- NOTE | 2017-09-01 12:03 | Nephrology Progress Note ---
Assessment/Plan Problem List: (1) ATN (acute tubular necrosis) (2) Severe protein-calorie malnutrition (3) HIV disease Assessment Renal failure , Acute / Chronic RESOLVED Anemia Amphetamine and coccaine abuse Plan Plan: DC [facility] KJ noted Hydrate stop 2D Echo PT OT monitor renal parameters DC planning Subjective ROS Limited/Unobtainable: No Constitutional: Reports: malaise Objective Objective Last 24 Hour Vital Signs Date Time Temp Pulse Resp B/P (MAP) Pulse Ox O2 Delivery O2 Flow Rate FiO2 09/01/17 08:25 74 18 Room Air 21 09/01/17 08:00 96.6 69 16 117/70 100 96.6 09/01/17 04:00 98.5 74 19 131/74 100 98.5 09/01/17 00:00 98.3 68 20 104/64 97 98.3 08/31/17 21:00 99.4 55 20 97/64 100 99.4 08/31/17 20:00 97.4 75 20 108/74 100 97.4 08/31/17 18:36 71 18 Room Air 21 08/31/17 16:00 97.7 64 110/59 97.7 08/31/17 14:57 96.8 69 17 110/59 99 Room Air 96.8 Intake and Output 08/31/17 09/01/17 19:00 07:00 Intake Total 730 ml 825 ml Output Total 700 ml Balance 30 ml 825 ml IV Total 730 ml 825 ml Output Urine Total 700 ml Laboratory Tests 08/31/17 23:05: Stool Occult Blood Positive 09/01/17 06:10: White Blood Count 5.3, Red Blood Count 3.51L, Hemoglobin 9.2L, Hematocrit 29.6L , Mean Corpuscular Volume 84, Mean Corpuscular Hemoglobin 26.2L, Mean Corpuscular Hemoglobin Concent 31.0L, Red Cell Distribution Width 15.1H, Platelet Count 233, Mean Platelet Volume 6.5, Neutrophils (%) (Auto) 58.2, Lymphocytes (%) (Auto) 23.7, Monocytes (%) (Auto) 13.7H, Eosinophils (%) (Auto) 3.4H, Basophils (%) (Auto) 0.9, Sodium Level 141, Potassium Level 3.7, Chloride Level 106, Carbon Dioxide Level 33H, Anion Gap 2L, Blood Urea Nitrogen 14, Creatinine 0.9, Estimat Glomerular Filtration Rate > 60, Glucose Level 85, Uric Acid 6.2, Calcium Level 8.4L, Phosphorus Level 2.5, Magnesium Level 1.7L, Total Bilirubin 0.2, Aspartate Amino Transf (AST/SGOT) 16, Alanine Aminotransferase ( ALT/SGPT) 14, Alkaline Phosphatase 71, Total Protein 6.8, Albumin 2.3L, Globulin 4.5, Albumin/Globulin Ratio 0.5L Height (Feet): 5 Height (Inches): 4.00 Weight (Pounds): 140 General Appearance: no apparent distress Objective no change DIANE GOFF Sep 01, 2017 12:03
--- NOTE | 2017-09-01 14:18 | Pulmonology Progress Note ---
Assessment/Plan Problems: (1) Hemorrhagic colitis (2) ATN (acute tubular necrosis) (3) Interstitial lung disease (4) Lower GI bleed (5) Severe protein-calorie malnutrition (6) HIV disease Assessment/Plan IV fluids check h/h prn prbc f/u GI recommendation check electrolytes, renal US viewed. renal function normalizing CT abdomen reviewed, thickening of gastric wall, ? etiology, GI following continue current treatment. Subjective ROS Limited/Unobtainable: No Constitutional: Reports: no symptoms HEENT: Repors: no symptoms Allergies: Coded Allergies: No Known Allergies (Unverified , 08/29/17) Objective Last 24 Hour Vital Signs Date Time Temp Pulse Resp B/P (MAP) Pulse Ox O2 Delivery O2 Flow Rate FiO2 09/01/17 08:25 74 18 Room Air 21 09/01/17 08:00 96.6 69 16 117/70 100 96.6 09/01/17 04:00 98.5 74 19 131/74 100 98.5 09/01/17 00:00 98.3 68 20 104/64 97 98.3 08/31/17 21:00 99.4 55 20 97/64 100 99.4 08/31/17 20:00 97.4 75 20 108/74 100 97.4 08/31/17 18:36 71 18 Room Air 21 08/31/17 16:00 97.7 64 110/59 97.7 08/31/17 14:57 96.8 69 17 110/59 99 Room Air 96.8 Intake and Output 08/31/17 09/01/17 19:00 07:00 Intake Total 730 ml 825 ml Output Total 700 ml Balance 30 ml 825 ml IV Total 730 ml 825 ml Output Urine Total 700 ml Objective General Appearance: cachetic Lines, tubes and drains: peripheral HEENT: normocephalic, atraumatic Neck: non-tender, normal alignment Respiratory/Chest: chest wall non-tender, lungs clear Cardiovascular/Chest: normal peripheral pulses, regular rhythm, regularly irregular Abdomen: normal bowel sounds, non tender, soft Extremities: normal range of motion, normal inspection Microbiology Date/Time Source Procedure Growth Status 08/29/17 16:35 Blood Blood Culture - Preliminary NO GROWTH AFTER 48 HOURS Resulted 08/29/17 16:15 Blood Blood Culture - Preliminary NO GROWTH AFTER 48 HOURS Resulted 08/29/17 19:16 Nasal Nares MRSA Culture - Final NO METHICILLIN RESISTANT STAPH AUREUS... Complete 08/29/17 16:47 Nasal Nares Influenza Types A,B Antigen (CHIDI) - Final Complete 08/31/17 23:05 Stool Clostridium difficile Toxin Assay - Final Complete 08/29/17 19:16 Rectum VRE Culture - Final NO VANCOMYCIN RESISTANT ENTEROCOCCUS ... Complete Laboratory Tests 08/31/17 23:05: Stool Occult Blood Positive 09/01/17 06:10: White Blood Count 5.3, Red Blood Count 3.51L, Hemoglobin 9.2L, Hematocrit 29.6L , Mean Corpuscular Volume 84, Mean Corpuscular Hemoglobin 26.2L, Mean Corpuscular Hemoglobin Concent 31.0L, Red Cell Distribution Width 15.1H, Platelet Count 233, Mean Platelet Volume 6.5, Neutrophils (%) (Auto) 58.2, Lymphocytes (%) (Auto) 23.7, Monocytes (%) (Auto) 13.7H, Eosinophils (%) (Auto) 3.4H, Basophils (%) (Auto) 0.9, Sodium Level 141, Potassium Level 3.7, Chloride Level 106, Carbon Dioxide Level 33H, Anion Gap 2L, Blood Urea Nitrogen 14, Creatinine 0.9, Estimat Glomerular Filtration Rate > 60, Glucose Level 85, Uric Acid 6.2, Calcium Level 8.4L, Phosphorus Level 2.5, Magnesium Level 1.7L, Total Bilirubin 0.2, Aspartate Amino Transf (AST/SGOT) 16, Alanine Aminotransferase ( ALT/SGPT) 14, Alkaline Phosphatase 71, Total Protein 6.8, Albumin 2.3L, Globulin 4.5, Albumin/Globulin Ratio 0.5L Current Medications Medications (Trade) Dose Ordered Sig/Castillo Route PRN Reason Start Time Stop Time Status Last Admin Dose Admin Acetaminophen (Tylenol) 650 mg Q4H PRN ORAL T>100.5 08/30/17 19:45 09/28/17 19:44 Albuterol/ Ipratropium (Albuterol/ Ipratropium) 3 ml Q4H PRN HHN Shortness of Breath 08/30/17 17:30 09/03/17 17:29 Ceftriaxone Sodium 1 gm/ Dextrose 55 ml @ 110 mls/hr Q24H IVPB 08/31/17 11:00 09/06/17 10:59 09/01/17 11:52 Dextrose (Dextrose 50%) 25 ml STAT PRN IV Hypoglycemia BS 60-69 mg/dL 08/30/17 17:30 09/29/17 17:29 Dextrose (Dextrose 50%) 50 ml STAT PRN IV Hypoglycemia BS<60mg/dL 08/30/17 17:30 09/28/17 17:29 Dronabinol (Marinol) 2.5 mg BID ORAL 08/30/17 18:00 09/29/17 17:59 09/01/17 08:42 Lorazepam (Ativan 2mg/ml 1ml) 1 mg Q4H PRN IV For Anxiety 08/30/17 17:30 09/05/17 17:29 Methadone HCl (Methadone HCl) 70 mg DAILY ORAL 08/31/17 09:00 09/06/17 15:59 08/31/17 10:00 Metronidazole (Flagyl) 500 mg Q8HR ORAL 08/31/17 06:00 09/07/17 05:59 09/01/17 05:45 Morphine Sulfate (Morphine Sulfate) 2 mg Q4H PRN IVP Severe Pain (Pain Scale 7-10) 08/30/17 17:30 09/05/17 17:29 Ondansetron HCl (Zofran) 4 mg Q6H PRN IVP Nausea & Vomiting 08/30/17 17:30 09/28/17 17:29 Polyethylene Glycol (Miralax) 17 gm DAILYPRN PRN ORAL Constipation 08/30/17 17:30 09/28/17 17:29 Cordell Mitchell MD Sep 01, 2017 14:18
--- NOTE | 2017-09-01 15:28 | General Progress Note ---
Assessment/Plan Assessment/Plan Assessment - Abd pain - diarrhea - HIV - Weight loss - azotemia - OB (+) stools - thickened gastric and colon wall on CT Recommendations - continue clears - follow labs and exam - stool cultures - Marinol - GI endoscopy next week per Dr. Del Valle Subjective Allergies: Coded Allergies: No Known Allergies (Unverified , 08/29/17) Subjective Feels OK some abdominal pain on clears requesting solids OB (+) stools noted Objective Last 24 Hour Vital Signs Date Time Temp Pulse Resp B/P (MAP) Pulse Ox O2 Delivery O2 Flow Rate FiO2 09/01/17 08:25 74 18 Room Air 21 09/01/17 08:00 96.6 69 16 117/70 100 96.6 09/01/17 04:00 98.5 74 19 131/74 100 98.5 09/01/17 00:00 98.3 68 20 104/64 97 98.3 08/31/17 21:00 99.4 55 20 97/64 100 99.4 08/31/17 20:00 97.4 75 20 108/74 100 97.4 08/31/17 18:36 71 18 Room Air 21 08/31/17 16:00 97.7 64 110/59 97.7 Intake and Output 08/31/17 09/01/17 19:00 07:00 Intake Total 730 ml 825 ml Output Total 700 ml Balance 30 ml 825 ml IV Total 730 ml 825 ml Output Urine Total 700 ml Laboratory Tests 08/31/17 23:05: Stool Occult Blood Positive 09/01/17 06:10: White Blood Count 5.3, Red Blood Count 3.51L, Hemoglobin 9.2L, Hematocrit 29.6L , Mean Corpuscular Volume 84, Mean Corpuscular Hemoglobin 26.2L, Mean Corpuscular Hemoglobin Concent 31.0L, Red Cell Distribution Width 15.1H, Platelet Count 233, Mean Platelet Volume 6.5, Neutrophils (%) (Auto) 58.2, Lymphocytes (%) (Auto) 23.7, Monocytes (%) (Auto) 13.7H, Eosinophils (%) (Auto) 3.4H, Basophils (%) (Auto) 0.9, Sodium Level 141, Potassium Level 3.7, Chloride Level 106, Carbon Dioxide Level 33H, Anion Gap 2L, Blood Urea Nitrogen 14, Creatinine 0.9, Estimat Glomerular Filtration Rate > 60, Glucose Level 85, Uric Acid 6.2, Calcium Level 8.4L, Phosphorus Level 2.5, Magnesium Level 1.7L, Total Bilirubin 0.2, Aspartate Amino Transf (AST/SGOT) 16, Alanine Aminotransferase ( ALT/SGPT) 14, Alkaline Phosphatase 71, Total Protein 6.8, Albumin 2.3L, Globulin 4.5, Albumin/Globulin Ratio 0.5L Height (Feet): 5 Height (Inches): 4.00 Weight (Pounds): 140 Objective Thin AA woman NCAT supple CTA RRR Abd (+) diffuse TTP no edema non focal DENY SHEARER Sep 01, 2017 15:28
--- NOTE | 2017-09-01 15:44 | Infectious Diseases Prog Note ---
Assessment/Plan Assessment/Plan ASSESSMENT: The patient is a 61-year-old female with, Human immunodeficiency virus, diagnosed in 1996 with undetectable viral load and CD4 count more than 200 ( unknown list of HIV medications). Diarrhea x3 days C. difficile : neg CT: Abnormal appearance of the wall of the stomach which appears thick. Questionable thickening of the left hemicolon wall. Colitis not excluded. ? lower gastrointestinal bleed. Rule out colitis, ischemic versus infectious. Afebrile. Status post leukocytosis. KRHIS improving Smoker cigarette / cocaine/ ampho abuse Ex IVDA no history of hepatitis PLAN: continue the patient on Rocephin and Flagyl d# 3 resume HIV meds ( when pt can bring the list ) stool for culture, occult blood, ova and parasites. Monitor CBC. Monitor BMP. Nephrology following GI cons following Blood culture EGD / colonscopy : P . Subjective Allergies: Coded Allergies: No Known Allergies (Unverified , 08/29/17) Subjective comfortable Objective Vital Signs Last 24 Hour Vital Signs Date Time Temp Pulse Resp B/P (MAP) Pulse Ox O2 Delivery O2 Flow Rate FiO2 09/01/17 12:00 98.2 66 17 130/75 100 Room Air 98.2 09/01/17 08:25 74 18 Room Air 21 09/01/17 08:00 96.6 69 16 117/70 100 96.6 09/01/17 04:00 98.5 74 19 131/74 100 98.5 09/01/17 00:00 98.3 68 20 104/64 97 98.3 08/31/17 21:00 99.4 55 20 97/64 100 99.4 08/31/17 20:00 97.4 75 20 108/74 100 97.4 08/31/17 18:36 71 18 Room Air 21 08/31/17 16:00 97.7 64 110/59 97.7 Height (Feet): 5 Height (Inches): 4.00 Weight (Pounds): 140 HEENT: anicteric Respiratory/Chest: no respiratory distress Cardiovascular: regular rhythm Abdomen: non distended Microbiology Date/Time Source Procedure Growth Status 08/29/17 16:35 Blood Blood Culture - Preliminary NO GROWTH AFTER 48 HOURS Resulted 08/29/17 16:15 Blood Blood Culture - Preliminary NO GROWTH AFTER 48 HOURS Resulted 08/29/17 19:16 Nasal Nares MRSA Culture - Final NO METHICILLIN RESISTANT STAPH AUREUS... Complete 08/29/17 16:47 Nasal Nares Influenza Types A,B Antigen (CHIDI) - Final Complete 08/31/17 23:05 Stool Clostridium difficile Toxin Assay - Final Complete 08/29/17 19:16 Rectum VRE Culture - Final NO VANCOMYCIN RESISTANT ENTEROCOCCUS ... Complete Laboratory Tests Test 08/31/17 23:05 09/01/17 06:10 Stool Occult Blood Positive (NEGATIVE) White Blood Count 5.3 K/UL (4.8-10.8) Red Blood Count 3.51 M/UL (4.20-5.40) L Hemoglobin 9.2 G/DL (12.0-16.0) L Hematocrit 29.6 % (37.0-47.0) L Mean Corpuscular Volume 84 FL (80-99) Mean Corpuscular Hemoglobin 26.2 PG (27.0-31.0) L Mean Corpuscular Hemoglobin Concent 31.0 G/DL (32.0-36.0) L Red Cell Distribution Width 15.1 % (11.6-14.8) H Platelet Count 233 K/UL (150-450) Mean Platelet Volume 6.5 FL (6.5-10.1) Neutrophils (%) (Auto) 58.2 % (45.0-75.0) Lymphocytes (%) (Auto) 23.7 % (20.0-45.0) Monocytes (%) (Auto) 13.7 % (1.0-10.0) H Eosinophils (%) (Auto) 3.4 % (0.0-3.0) H Basophils (%) (Auto) 0.9 % (0.0-2.0) Sodium Level 141 MMOL/L (136-145) Potassium Level 3.7 MMOL/L (3.5-5.1) Chloride Level 106 MMOL/L (98-107) Carbon Dioxide Level 33 MMOL/L (21-32) H Anion Gap 2 mmol/L (5-15) L Blood Urea Nitrogen 14 mg/dL (7-18) Creatinine 0.9 MG/DL (0.55-1.30) Estimat Glomerular Filtration Rate > 60 mL/min (>60) Glucose Level 85 MG/DL (74-106) Uric Acid 6.2 MG/DL (2.6-7.2) Calcium Level 8.4 MG/DL (8.5-10.1) L Phosphorus Level 2.5 MG/DL (2.5-4.9) Magnesium Level 1.7 MG/DL (1.8-2.4) L Total Bilirubin 0.2 MG/DL (0.2-1.0) Aspartate Amino Transf (AST/SGOT) 16 U/L (15-37) Alanine Aminotransferase (ALT/SGPT) 14 U/L (12-78) Alkaline Phosphatase 71 U/L (46-116) Total Protein 6.8 G/DL (6.4-8.2) Albumin 2.3 G/DL (3.4-5.0) L Globulin 4.5 g/dL Albumin/Globulin Ratio 0.5 (1.0-2.7) L Current Medications Medications (Trade) Dose Ordered Sig/Castillo Route PRN Reason Start Time Stop Time Status Last Admin Dose Admin Acetaminophen (Tylenol) 650 mg Q4H PRN ORAL T>100.5 08/30/17 19:45 09/28/17 19:44 Albuterol/ Ipratropium (Albuterol/ Ipratropium) 3 ml Q4H PRN HHN Shortness of Breath 08/30/17 17:30 09/03/17 17:29 Ceftriaxone Sodium 1 gm/ Dextrose 55 ml @ 110 mls/hr Q24H IVPB 08/31/17 11:00 09/06/17 10:59 09/01/17 11:52 Dextrose (Dextrose 50%) 25 ml STAT PRN IV Hypoglycemia BS 60-69 mg/dL 08/30/17 17:30 09/29/17 17:29 Dextrose (Dextrose 50%) 50 ml STAT PRN IV Hypoglycemia BS<60mg/dL 08/30/17 17:30 09/28/17 17:29 Dronabinol (Marinol) 2.5 mg BID ORAL 08/30/17 18:00 09/29/17 17:59 09/01/17 08:42 Lorazepam (Ativan 2mg/ml 1ml) 1 mg Q4H PRN IV For Anxiety 08/30/17 17:30 09/05/17 17:29 Methadone HCl (Methadone HCl) 70 mg DAILY ORAL 08/31/17 09:00 09/06/17 15:59 08/31/17 10:00 Metronidazole (Flagyl) 500 mg Q8HR ORAL 08/31/17 06:00 09/07/17 05:59 09/01/17 05:45 Morphine Sulfate (Morphine Sulfate) 2 mg Q4H PRN IVP Severe Pain (Pain Scale 7-10) 08/30/17 17:30 09/05/17 17:29 Ondansetron HCl (Zofran) 4 mg Q6H PRN IVP Nausea & Vomiting 08/30/17 17:30 09/28/17 17:29 Polyethylene Glycol (Miralax) 17 gm DAILYPRN PRN ORAL Constipation 08/30/17 17:30 09/28/17 17:29 Corey Hutchison MD Sep 01, 2017 15:44
[2017-09-01 16:00] VITALS: BP 141/79
[2017-09-01] MEDS ORDERED: Bisacodyl EC 5mg tab ORAL ONE (16:30)
[2017-09-01] MEDS ORDERED: Magnesium Citrate Liq Btl ORAL ONE (16:30)
[2017-09-01] MEDS ORDERED: Fleet's Enema 133ml RECTAL ONE (16:30)
--- NOTE | 2017-09-01 17:26 | Cardiology Report ---
APPROVED REPORT EXAM: Two-dimensional and M-mode echocardiogram with Doppler and color Doppler. INDICATION Congestive Heart Failure M-Mode DIMENSIONS IVSd1.4 (0.7-1.1cm)Left Atrium (MM)2.1 (1.6-4.0cm) LVDd3.8 (3.5-5.6cm)Aortic Root2.9 (2.0-3.7cm) PWd1.2 (0.7-1.1cm)Aortic Cusp Exc.1.8 (1.5-2.0cm) LVDs1.3 (2.5-4.0cm) PWs2.6 cm Normal left ventricular chamber size, systolic function and wall motion. Left ventricular ejection fraction estimated to be 60-65 %. Mild left ventricular hypertrophy. No evidence of pericardial effusion. All other cardiac chamber sizes are within normal limits. Aortic valve calcification with decreased cusp excursion c/w aortic stenosis. Echogenic material noted on anterior aortic valve leaflet, likely calcification. Mildly thickened mitral valve leaflets with normal excursion. Mild mitral annulus and aortic root calcification. Normal pulmonic valve structure. Normal tricuspid valve structure. IVC is normal in size with physiological collapse. A color flow and spectral Doppler study was performed and revealed: No aortic insufficiency. Peak aortic valve gradient of 48 mmHg and a mean of 13 mmHg. Aortic valve area 1.4 cm2 calculated by continuity equation. Trace mitral regurgitation. Mitral diastolic velocities suggest mild left ventricular diastolic dysfunction (Grade I). Trace tricuspid regurgitation. Tricuspid systolic velocities suggests peak right ventricular systolic pressure of 10 mmHg. No pulmonic regurgitation present.
[2017-09-01 20:00] VITALS: BP 148/78
[2017-09-02] VITALS (12 sets, daily range): BP systolic 123–181; BP diastolic 79–95
[2017-09-02] MEDS: metroNIDAZOLE 500mg tab ORAL SCH ×3 (05:00→21:15)
--- NOTE | 2017-09-02 07:56 | Pre-Procedure Note/Attestation ---
Pre-Procedure Note/Attestation Complete Prior to Procedure Planned Procedure: not applicable Procedure Narrative: esophagogastroduodenoscopy and colonoscopy Indications for Procedure Pre-Operative Diagnosis: anemia Attestation I attest that I discussed the nature of the procedure; its benefits; risks and complications; and alternatives (and the risks and benefits of such alternatives ), prior to the procedure, with the patient (or the patient's legal route sales representative). I attest that, if there was a reasonable possibility of needing a blood transfusion, the patient (or the patient's legal route sales representative) was given the [facility] standardized written summary, pursuant to the [place] Blood Safety Act ([place] Health and Safety Code # 1645, as amended). I attest that I re-evaluated the patient just prior to the surgery and that there has been no change in the patient's H&P, except as documented below: ABILIO GARCIA Sep 02, 2017 07:56
[2017-09-02] MEDS ORDERED: Lidocaine 1% MPF 10mg/ml 5ml ONE (08:00)
[2017-09-02] MEDS ORDERED: Midazolam 2mg/2ml Inj ONE (08:00)
[2017-09-02] MEDS ORDERED: Propofol 200mg/20ml IV ONE (08:00)
[2017-09-02] MEDS ORDERED: LR 1000ml ONE (08:00)
[2017-09-02] MEDS ORDERED: Tubing IV Extension IV ONE (08:10)
[2017-09-02] MEDS ORDERED: NS 500ML IV ONE (08:10)
[2017-09-02] MEDS ORDERED: LR 1000ml 1,000 ML IVLG SCH (08:17)
--- NOTE | 2017-09-02 08:21 | Anethesia Preoperative Eval ---
Anesthesia Pre-op PMH/ROS General Date of Evaluation: Sep 02, 2017 Time of Evaluation: 08:04 Anesthesiologist: Jessica ASA Score: ASA 3 Mallampati Score Class I : Soft palate, uvula, fauces, pillars visible Class II: Soft palate, uvula, fauces visible Class III: Soft palate, base of uvula visible Class IV: Only hard plate visible Mallampati Classification: Class II Surgeon: Eligio Diagnosis: Abd Pain Surgical Procedure: EGD/Colonscopy Anesthesia History: none Family History: no anesthesia problems Allergies: Coded Allergies: No Known Allergies (Unverified , 08/29/17) Medications: see eMAR Past Medical History Cardiovascular: Reports: HTN Pulmonary: Reports: asthma Hematology/Immune: Reports: other - HIV, Sepsis Anesthesia Pre-op Phys. Exam Physician Exam Last Vital Signs Date Time Temp Pulse Resp B/P (MAP) Pulse Ox O2 Delivery O2 Flow Rate FiO2 09/02/17 04:00 98.2 75 19 157/86 100 98.2 09/02/17 00:00 Nasal Cannula 2.0 09/01/17 21:27 21 Constitutional: NAD Neurologic: CN 2-12 intact Cardiovascular: RRR Respiratory: CTA Gastrointestinal: S/NT/ND Airway Exam Mallampati Classification ASA 3 Mallampati Score: Class II MO: full ROM: limited Teeth: intact Anesthesia Pre-op A/P Risk Assessment & Plan Assessment: ASA 3 Plan: Jones Kunz MD Sep 02, 2017 08:21
[2017-09-02] MEDS ORDERED: fentaNYL 100 mcg/2 mL IV PRN (08:30)
[2017-09-02] MEDS ORDERED: HYDROcodone/Acetamin 7.5/325 tab ORAL PRN (08:30)
[2017-09-02] MEDS ORDERED: Norco 5mg/325mg tab ORAL PRN (08:30)
[2017-09-02] MEDS ORDERED: LORazepam Inj 2mg/ml 1ml IV PRN (08:30)
[2017-09-02] MEDS ORDERED: Atropine Inj 1mg/10ml Syr IV PRN (08:30)
[2017-09-02] MEDS ORDERED: Hydromorphone 0.5mg/0.5ml inj IVP PRN (08:30)
[2017-09-02] MEDS ORDERED: Midazolam 2mg/2ml Inj IVP PRN (08:30)
[2017-09-02] MEDS ORDERED: Ketorolac 30mg Inj IV PRN ×2 (08:30)
[2017-09-02] MEDS ORDERED: Labetalol 5mg/ml 20ml vial IV PRN (08:30)
[2017-09-02] MEDS ORDERED: oxyCODONE HCL/Acetaminophen 5/325mg ORAL PRN (08:30)
[2017-09-02] MEDS ORDERED: DiphenhydrAMINE 50mg/ml Inj IVP PRN (08:30)
--- NOTE | 2017-09-02 08:33 | Immediate Post-Op Evaluation ---
Immediate Post-Op Evalulation Immediate Post-Op Evalulation Procedure: EGD/Colonoscopy Date of Evaluation: Sep 02, 2017 Time of Evaluation: 09:28 IV Fluids: 200 LR Blood Products: 0 Estimated Blood Loss: 3 Urinary Output: 0 Blood Pressure Systolic: 111 Blood Pressure Diastolic: 69 Pulse Rate: 76 Respiratory Rate: 16 O2 Sat by Pulse Oximetry: 100 Temperature (Fahrenheit): 97.2 Pain Score (1-10): 2 Nausea: No Vomiting: No Complications 0 Patient Status: awake, reacts, patent, none Hydration Status: adequate Jones Lopez MD Sep 02, 2017 08:33
--- NOTE | 2017-09-02 08:34 | 48 Hour Post Anesthesia Eval ---
Post Anesthesia Evaluation Procedure: EGD/Colonoscopy Date of Evaluation: Sep 02, 2017 Time of Evaluation: 11:41 Blood Pressure Systolic: 144 0: 87 Pulse Rate: 72 Respiratory Rate: 18 Temperature (Fahrenheit): 98.2 O2 Sat by Pulse Oximetry: 99 Airway: patent Nausea: No Vomiting: No Pain Intensity: 2 Hydration Status: adequate Cardiopulmonary Status: Stable Mental Status/LOC: patient returned to baseline Follow-up Care/Observations: 0 Post-Anesthesia Complications: 0 Follow-up care needed: N/A Jones Lopez MD Sep 02, 2017 08:34
[2017-09-02] MEDS: Dronabinol 2.5mg Cap ORAL SCH ×2 (09:00→18:04)
--- NOTE | 2017-09-02 09:11 | Endoscopy Procedure Note ---
Endoscopy Procedure Note General Indication for Procedure: anemia Procedures Performed: EGD, colonoscopy Operative Findings/Diagnosis: gastric ulcer, colitis Specimen: yes Pt Tolerated Procedure Well: Yes Estimated Blood Loss: none Anesthesia Anesthesiologist: maurisio Anesthesia: MAC Inserted Devices Implant(s) used?: No Quality Quality of Bowel Preparation: Fair Did scope reach the cecum?: No Why scope didn't reach cecum: Severe colitis GI Core Measures 50 yrs or older w/o bx or poly: Not Applicable 10yrs. F/U not recommended: Not Applicable ABILIO GARCIA Sep 02, 2017 09:11
[2017-09-02] MEDS: cefTRIAXone 1 GM in D5W 55 ML IVPB SCH (11:09)
--- NOTE | 2017-09-02 14:49 | Pulmonology Progress Note ---
Assessment/Plan Problems: (1) Hemorrhagic colitis (2) ATN (acute tubular necrosis) (3) Interstitial lung disease (4) Lower GI bleed (5) Severe protein-calorie malnutrition (6) HIV disease Assessment/Plan eating better IV fluids check h/h prn prbc f/u GI recommendation check electrolytes, renal US viewed. renal function normalizing dc planning soon continue current treatment. Subjective ROS Limited/Unobtainable: No Constitutional: Reports: no symptoms HEENT: Repors: no symptoms Allergies: Coded Allergies: No Known Allergies (Unverified , 08/29/17) Objective Last 24 Hour Vital Signs Date Time Temp Pulse Resp B/P (MAP) Pulse Ox O2 Delivery O2 Flow Rate FiO2 09/02/17 12:00 97.0 74 18 168/89 100 Nasal Cannula 3.0 97.0 09/02/17 10:04 97.2 62 22 169/88 100 Nasal Cannula 3.0 97.2 09/02/17 09:45 65 20 181/95 100 Nasal Cannula 3.0 09/02/17 09:35 63 23 176/92 100 Simple Mask 6.0 09/02/17 09:25 64 24 162/93 100 Simple Mask 6.0 09/02/17 09:21 208.8 72 18 99 09/02/17 09:20 68 22 146/89 100 Simple Mask 6.0 09/02/17 09:18 207.0 76 16 100 09/02/17 09:17 97.0 75 24 123/79 100 Simple Mask 6.0 97.0 09/02/17 08:00 96.9 77 18 129/80 100 Room Air 96.9 09/02/17 04:00 98.2 75 19 157/86 100 98.2 09/02/17 00:00 Nasal Cannula 2.0 09/02/17 00:00 98.9 79 19 133/81 100 98.9 09/01/17 21:27 75 17 Room Air 1.0 21 09/01/17 20:00 99.0 75 19 148/78 100 99.0 09/01/17 20:00 Nasal Cannula 2.0 09/01/17 16:00 98.9 75 17 141/79 100 Room Air 98.9 Intake and Output 09/01/17 09/02/17 19:00 07:00 Intake Total 480 ml Balance 480 ml Intake Oral 480 ml # Voids 1 # Bowel Movements 2 Objective General Appearance: cachetic Lines, tubes and drains: peripheral HEENT: normocephalic, atraumatic Neck: non-tender, normal alignment Respiratory/Chest: chest wall non-tender, lungs clear Cardiovascular/Chest: normal peripheral pulses, regular rhythm, regularly irregular Abdomen: normal bowel sounds, non tender, soft Extremities: normal range of motion, normal inspection Microbiology Date/Time Source Procedure Growth Status 08/31/17 05:50 Blood Blood Culture - Preliminary NO GROWTH AFTER 24 HOURS Resulted 08/31/17 05:45 Blood Blood Culture - Preliminary NO GROWTH AFTER 24 HOURS Resulted 08/31/17 23:05 Stool Clostridium difficile Toxin Assay - Final Complete Laboratory Tests 09/02/17 06:10: Cytomegalovirus IgG Antibody [Pending] Current Medications Medications (Trade) Dose Ordered Sig/Castillo Route PRN Reason Start Time Stop Time Status Last Admin Dose Admin Acetaminophen (Tylenol) 650 mg Q4H PRN ORAL T>100.5 08/30/17 19:45 09/28/17 19:44 Acetaminophen/ Hydrocodone Bitart (Lorane 5/325) 1 tab Q1H PRN ORAL Mild Pain (Pain Scale 1-3) 09/02/17 08:30 09/02/17 15:00 Acetaminophen/ Hydrocodone Bitart (Lorane 7.5/325) 1 tab Q1H PRN ORAL Moderate Pain (Pain Scale 4-6) 09/02/17 08:30 09/02/17 15:00 Al Hydroxide/Mg Hydroxide (Mylanta) 15 ml Q1H PRN ORAL gi upset 09/02/17 08:30 09/02/17 15:00 Albuterol/ Ipratropium (Albuterol/ Ipratropium) 3 ml Q4H PRN HHN Shortness of Breath 08/30/17 17:30 09/03/17 17:29 Atropine Sulfate (Atropine) 0.5 mg Q5M PRN IV HR <40 09/02/17 08:30 09/02/17 15:00 Ceftriaxone Sodium 1 gm/ Dextrose 55 ml @ 110 mls/hr Q24H IVPB 08/31/17 11:00 09/06/17 10:59 09/02/17 11:09 Dextrose (Dextrose 50%) 25 ml STAT PRN IV Hypoglycemia BS 60-69 mg/dL 08/30/17 17:30 09/29/17 17:29 Dextrose (Dextrose 50%) 50 ml STAT PRN IV Hypoglycemia BS<60mg/dL 08/30/17 17:30 09/28/17 17:29 Diphenhydramine HCl (Benadryl) 25 mg Q15M PRN IVP Itching 09/02/17 08:30 09/02/17 15:00 Dolutegravir Sodium (Tivicay) 50 mg DAILY ORAL 09/02/17 13:45 10/02/17 13:44 UNV Dronabinol (Marinol) 2.5 mg BID ORAL 08/30/17 18:00 09/29/17 17:59 09/01/17 17:49 Fentanyl Citrate (Sublimaze 100 mcg/2 mL) 25 mcg Q10M PRN IV Moderate Pain (Pain Scale 4-6) 09/02/17 08:30 09/02/17 15:00 Hydralazine HCl (Apresoline) 5 mg Q30M PRN IV SBP>160 / DBP>90 09/02/17 08:30 09/02/17 15:00 Hydromorphone HCl (Dilaudid) 0.5 mg Q15M PRN IVP Severe Pain (Pain Scale 7-10) 09/02/17 08:30 09/02/17 15:00 Iron Sucrose 100 mg/Sodium Chloride 115 ml @ 460 mls/hr BEDTIME IV 09/02/17 21:00 09/06/17 21:14 Ketorolac Tromethamine (Toradol 30mg) 15 mg Q1H PRN IV Moderate Breakthru Pain (5-7) 09/02/17 08:30 09/02/17 15:00 Ketorolac Tromethamine (Toradol 30mg) 30 mg Q1H PRN IV Severe Breakthru Pain (>7) 09/02/17 08:30 09/02/17 15:00 Labetalol HCl (Normodyne) 5 mg Q10M PRN IV SBP>160 / DBP>90 09/02/17 08:30 09/02/17 15:00 Lorazepam (Ativan 2mg/ml 1ml) 1 mg Q15M PRN IV For Anxiety 09/02/17 08:30 09/02/17 15:00 Lorazepam (Ativan 2mg/ml 1ml) 1 mg Q4H PRN IV For Anxiety 08/30/17 17:30 09/05/17 17:29 Methadone HCl (Methadone HCl) 70 mg DAILY ORAL 08/31/17 09:00 09/06/17 15:59 08/31/17 10:00 Metronidazole (Flagyl) 500 mg Q8HR ORAL 08/31/17 06:00 09/07/17 05:59 09/01/17 21:05 Midazolam HCl (Versed 2mg/2ml vial) 1 mg Q15M PRN IVP For Anxiety 09/02/17 08:30 09/02/17 15:00 Morphine Sulfate (Morphine Sulfate) 2 mg Q4H PRN IVP Severe Pain (Pain Scale 7-10) 08/30/17 17:30 09/05/17 17:29 Ondansetron HCl (Zofran) 4 mg Q1H PRN IVP Nausea & Vomiting 09/02/17 08:30 09/02/17 15:00 Ondansetron HCl (Zofran) 4 mg Q6H PRN IVP Nausea & Vomiting 08/30/17 17:30 09/28/17 17:29 Oxycodone/ Acetaminophen (Percocet 5-325) 1 tab Q1H PRN ORAL Severe Pain (Pain Scale 7-10) 09/02/17 08:30 09/02/17 15:00 Pantoprazole (Protonix) 40 mg DAILY ORAL 09/03/17 09:00 10/03/17 08:59 Polyethylene Glycol (Miralax) 17 gm DAILYPRN PRN ORAL Constipation 08/30/17 17:30 09/28/17 17:29 Tenofovir Disoproxil Fumarate (Viread) 200 mg DAILY ONCE ORAL 09/03/17 09:00 09/03/17 09:01 Cordell Escobedo MD Sep 02, 2017 14:49
[2017-09-02] MEDS: Dolutegravir Sodium 50mg tab ORAL SCH (16:04)
--- NOTE | 2017-09-02 16:10 | Nephrology Progress Note ---
Assessment/Plan Problem List: (1) ATN (acute tubular necrosis) (2) Severe protein-calorie malnutrition (3) HIV disease Assessment Renal failure , Acute / Chronic RESOLVED Anemia Amphetamine and coccaine abuse Plan Plan: DC [facility] KJ noted Hydrate stop 2D Echo PT OT monitor renal parameters DC planning Subjective ROS Limited/Unobtainable: No Constitutional: Reports: malaise Objective Objective Last 24 Hour Vital Signs Date Time Temp Pulse Resp B/P (MAP) Pulse Ox O2 Delivery O2 Flow Rate FiO2 09/02/17 12:00 97.0 74 18 168/89 100 Nasal Cannula 3.0 97.0 09/02/17 10:04 97.2 62 22 169/88 100 Nasal Cannula 3.0 97.2 09/02/17 09:45 65 20 181/95 100 Nasal Cannula 3.0 09/02/17 09:35 63 23 176/92 100 Simple Mask 6.0 09/02/17 09:25 64 24 162/93 100 Simple Mask 6.0 09/02/17 09:21 208.8 72 18 99 09/02/17 09:20 68 22 146/89 100 Simple Mask 6.0 09/02/17 09:18 207.0 76 16 100 09/02/17 09:17 97.0 75 24 123/79 100 Simple Mask 6.0 97.0 09/02/17 08:00 96.9 77 18 129/80 100 Room Air 96.9 09/02/17 04:00 98.2 75 19 157/86 100 98.2 09/02/17 00:00 Nasal Cannula 2.0 09/02/17 00:00 98.9 79 19 133/81 100 98.9 09/01/17 21:27 75 17 Room Air 1.0 21 09/01/17 20:00 99.0 75 19 148/78 100 99.0 09/01/17 20:00 Nasal Cannula 2.0 Intake and Output 09/01/17 09/02/17 19:00 07:00 Intake Total 480 ml Balance 480 ml Intake Oral 480 ml # Voids 1 # Bowel Movements 2 Laboratory Tests 09/02/17 06:10: Cytomegalovirus IgG Antibody [Pending] Height (Feet): 5 Height (Inches): 5.00 Weight (Pounds): 140 General Appearance: no apparent distress Cardiovascular: normal rate Respiratory/Chest: lungs clear Abdomen: soft Objective no change DIANE GOFF Sep 02, 2017 16:10
--- NOTE | 2017-09-02 17:30 | Procedure Note ---
DATE OF PROCEDURE: 09/02/2017 SURGEON: Alber Del Valle M.D. ANESTHESIOLOGIST: Dr. Lopez. REFERRING PHYSICIAN: Cordell Mitchell M.D. PROCEDURE: Upper endoscopy with biopsy and colonoscopy with biopsy. ANESTHESIA: Per Dr. Lopez. INSTRUMENT: Olympus adult flexible upper endoscope and colonoscope. INDICATION: Iron-deficiency anemia. The procedure, risks, benefits, and possible consequences, including hemorrhage, aspiration, perforation and infection, and alternative treatments, were explained to the patient/legal guardian by Dr. Alber Del Valle and the patient/legal guardian understood and accepted these risks. DESCRIPTION OF PROCEDURE: After informed consent was obtained and the patient was adequately sedated, Olympus upper endoscope was advanced from the mouth to the second portion of duodenum and retroflexion was performed in the stomach. The patient has a large ulcer in the antrum of the stomach. This ulcer looks clean-based but grossly looked deep. There was a lot of inflammation around this ulcer in the antrum. Biopsies from the ulcer edge, antrum, and body of the stomach were obtained. The patient also had some evidence of atrophic gastritis. At this time, the upper endoscope was retrieved and the patient was turned over for colonoscopy. First, rectal exam was performed which was normal. Then the scope was advanced from the rectum into the proximal transverse colon. There was evidence of ischemic ulceration-looking area in the sigmoid, so we did not want to force the scope too much and we had some hard time in that area to pass the scope into the right colon, so we decided not to force it given the evidence of active possible ischemic colitis. significant abdominal pressure and this perforation. The quality of prep overall was fair. At this time, we started retrieving the scope slowly. Random biopsies from the transverse colon were obtained. There was one diminutive polyp in the transverse colon, which was removed with cold biopsy forceps technique. Then at area starting at about 35 cm from the anal verge up to about 40 cm was an area of the necrotic-looking ulcerative-looking questionable with CMV infection versus ischemic colitis, most likely ischemic colitis. This area was biopsied. There was a similar-looking area in the rectum which also was biopsied. Retroflexion of rectum was performed which showed evidence of small internal hemorrhoids. SUMMARY OF FINDINGS: 1. Gastric ulcer, status post biopsy. 2. Atrophic gastritis, status post biopsy. 3. Incomplete colonoscopic examination. See above for details. 4. Ischemic-looking areas in the rectum and sigmoid colon, status post biopsy. 5. One colonic polyp removed. 6. Hemorrhoids. RECOMMENDATIONS: Follow up biopsies and treat accordingly. Start the patient on PPI daily. Follow biopsies and treat for H. pylori if it is positive. Sent for H. pylori serology. Sent for CMV serology. The patient most probably will need full repeat endoscopy to evaluate eradication of ulcer in 8 weeks. Also may be repeat colonoscopy at that time too when the ischemic colitis is improved. I want to thank Dr. Mitchell for this kind referral. Alber Del Valle M.D. DR: Mary JOB#: [id number] CC: Cordell Mitchell M.D.; Fax#: [phone]
[2017-09-02] MEDS ORDERED: D5NS 1000ml IV ONE (18:08)
--- NOTE | 2017-09-02 19:54 | Infectious Diseases Prog Note ---
Assessment/Plan Assessment/Plan ASSESSMENT: The patient is a 61-year-old female with, Human immunodeficiency virus, CD4 : 343 ( 08/30 ) diagnosed in 1996 with undetectable viral load Diarrhea x3 days, SP C. difficile : neg CT: Abnormal appearance of the wall of the stomach which appears thick. Questionable thickening of the left hemicolon wall. Colitis not excluded. ? lower gastrointestinal bleed. Rule out colitis, ischemic versus infectious. Afebrile. Status post leukocytosis. KHRIS improving Smoker cigarette / cocaine/ ampho abuse Ex IVDA no history of hepatitis PLAN: continue the patient on Rocephin and Flagyl d# 4 resume HIV meds stool for culture, occult blood, ova and parasites. Monitor CBC. Monitor BMP. Nephrology following GI cons following Blood culture 09/02 SP EGD / colonscopy report : P . Subjective Constitutional: Denies: no symptoms, fever, chills, fatigue, anorexia, drenching sweats, other Allergies: Coded Allergies: No Known Allergies (Unverified , 08/29/17) Subjective comfortable Objective Vital Signs Last 24 Hour Vital Signs Date Time Temp Pulse Resp B/P (MAP) Pulse Ox O2 Delivery O2 Flow Rate FiO2 09/02/17 16:00 98.0 80 18 154/80 96 Room Air 98.0 09/02/17 12:00 97.0 74 18 168/89 100 Nasal Cannula 3.0 97.0 09/02/17 10:04 97.2 62 22 169/88 100 Nasal Cannula 3.0 97.2 09/02/17 09:45 65 20 181/95 100 Nasal Cannula 3.0 09/02/17 09:35 63 23 176/92 100 Simple Mask 6.0 09/02/17 09:25 64 24 162/93 100 Simple Mask 6.0 09/02/17 09:21 208.8 72 18 99 09/02/17 09:20 68 22 146/89 100 Simple Mask 6.0 09/02/17 09:18 207.0 76 16 100 09/02/17 09:17 97.0 75 24 123/79 100 Simple Mask 6.0 97.0 09/02/17 08:00 96.9 77 18 129/80 100 Room Air 96.9 09/02/17 04:00 98.2 75 19 157/86 100 98.2 09/02/17 00:00 Nasal Cannula 2.0 09/02/17 00:00 98.9 79 19 133/81 100 98.9 09/01/17 21:27 75 17 Room Air 1.0 21 09/01/17 20:00 99.0 75 19 148/78 100 99.0 09/01/17 20:00 Nasal Cannula 2.0 Height (Feet): 5 Height (Inches): 5.00 Weight (Pounds): 140 Respiratory/Chest: no respiratory distress Cardiovascular: regular rhythm Abdomen: soft, non tender Microbiology Date/Time Source Procedure Growth Status 08/31/17 05:50 Blood Blood Culture - Preliminary NO GROWTH AFTER 24 HOURS Resulted 08/31/17 05:45 Blood Blood Culture - Preliminary NO GROWTH AFTER 24 HOURS Resulted 08/31/17 23:05 Stool Clostridium difficile Toxin Assay - Final Complete Laboratory Tests Test 09/02/17 06:10 Cytomegalovirus IgG Antibody Pending Current Medications Medications (Trade) Dose Ordered Sig/Castillo Route PRN Reason Start Time Stop Time Status Last Admin Dose Admin Acetaminophen (Tylenol) 650 mg Q4H PRN ORAL T>100.5 08/30/17 19:45 09/28/17 19:44 Albuterol/ Ipratropium (Albuterol/ Ipratropium) 3 ml Q4H PRN HHN Shortness of Breath 08/30/17 17:30 09/03/17 17:29 Ceftriaxone Sodium 1 gm/ Dextrose 55 ml @ 110 mls/hr Q24H IVPB 08/31/17 11:00 09/06/17 10:59 09/02/17 11:09 Dextrose (Dextrose 50%) 25 ml STAT PRN IV Hypoglycemia BS 60-69 mg/dL 08/30/17 17:30 09/29/17 17:29 Dextrose (Dextrose 50%) 50 ml STAT PRN IV Hypoglycemia BS<60mg/dL 08/30/17 17:30 09/28/17 17:29 Dolutegravir Sodium (Tivicay) 50 mg DAILY ORAL 09/02/17 16:00 10/02/17 15:59 09/02/17 16:04 Dronabinol (Marinol) 2.5 mg BID ORAL 08/30/17 18:00 09/29/17 17:59 09/02/17 18:04 Emtricitabine/ Tenofovir (Truvada 200/ 300mg) 1 tab DAILY ORAL 09/03/17 16:00 10/03/17 15:59 Iron Sucrose 100 mg/Sodium Chloride 115 ml @ 460 mls/hr BEDTIME IV 09/02/17 21:00 09/06/17 21:14 Lorazepam (Ativan 2mg/ml 1ml) 1 mg Q4H PRN IV For Anxiety 08/30/17 17:30 09/05/17 17:29 Methadone HCl (Methadone HCl) 70 mg DAILY ORAL 08/31/17 09:00 09/06/17 15:59 08/31/17 10:00 Metronidazole (Flagyl) 500 mg Q8HR ORAL 08/31/17 06:00 09/07/17 05:59 09/02/17 16:04 Morphine Sulfate (Morphine Sulfate) 2 mg Q4H PRN IVP Severe Pain (Pain Scale 7-10) 08/30/17 17:30 09/05/17 17:29 Ondansetron HCl (Zofran) 4 mg Q6H PRN IVP Nausea & Vomiting 08/30/17 17:30 09/28/17 17:29 Pantoprazole (Protonix) 40 mg DAILY ORAL 09/03/17 09:00 10/03/17 08:59 Polyethylene Glycol (Miralax) 17 gm DAILYPRN PRN ORAL Constipation 08/30/17 17:30 09/28/17 17:29 Corey Hutchison MD Sep 02, 2017 19:54
[2017-09-02] MEDS ORDERED: Iron Sucrose 100 MG in NS 110 ML IV SCH (21:00)
[2017-09-03] VITALS: BP 144/76
[2017-09-03 04:00] VITALS: BP 151/78
[2017-09-03] MEDS: metroNIDAZOLE 500mg tab ORAL SCH ×2 (05:20→14:16)
[2017-09-03 08:00] VITALS: BP 148/78
[2017-09-03] MEDS: Dronabinol 2.5mg Cap ORAL SCH ×2 (08:28→17:33)
[2017-09-03] MEDS: Dolutegravir Sodium 50mg tab ORAL SCH (08:29)
--- NOTE | 2017-09-03 09:17 | Infectious Diseases Prog Note ---
Assessment/Plan Assessment/Plan ASSESSMENT: The patient is a 61-year-old female with, Human immunodeficiency virus, CD4 : 343 ( 08/30 ) diagnosed in 1996 with undetectable viral load Diarrhea x3 days, SP ? lower gastrointestinal bleed. 09/02 SP EGD / colonscopy: gastric ulcer, colitis C. difficile : neg CT: Abnormal appearance of the wall of the stomach which appears thick. Questionable thickening of the left hemicolon wall. Colitis not excluded. Afebrile. Status post leukocytosis. KHRIS improving Smoker cigarette / cocaine/ ampho abuse Ex IVDA no history of hepatitis PLAN: continue the patient on Rocephin and Flagyl d# 5 / -7 cont HIV meds stool for culture, occult blood, ova and parasites. Monitor CBC. Monitor BMP. Nephrology following GI cons following Blood culture . Subjective Allergies: Coded Allergies: No Known Allergies (Unverified , 08/29/17) Subjective comfortable Objective Vital Signs Last 24 Hour Vital Signs Date Time Temp Pulse Resp B/P (MAP) Pulse Ox O2 Delivery O2 Flow Rate FiO2 09/03/17 04:00 97.7 72 19 151/78 100 97.7 09/03/17 00:00 97.9 80 19 144/76 100 97.9 09/02/17 20:00 97.5 80 19 137/83 100 97.5 09/02/17 19:52 78 18 Room Air 2.0 28 09/02/17 16:00 98.0 80 18 154/80 96 Room Air 98.0 09/02/17 12:00 97.0 74 18 168/89 100 Nasal Cannula 3.0 97.0 09/02/17 10:04 97.2 62 22 169/88 100 Nasal Cannula 3.0 97.2 09/02/17 09:45 65 20 181/95 100 Nasal Cannula 3.0 09/02/17 09:35 63 23 176/92 100 Simple Mask 6.0 09/02/17 09:25 64 24 162/93 100 Simple Mask 6.0 09/02/17 09:21 208.8 72 18 99 09/02/17 09:20 68 22 146/89 100 Simple Mask 6.0 09/02/17 09:18 207.0 76 16 100 09/02/17 09:17 97.0 75 24 123/79 100 Simple Mask 6.0 97.0 Height (Feet): 5 Height (Inches): 5.00 Weight (Pounds): 140 HEENT: anicteric Respiratory/Chest: no respiratory distress Cardiovascular: regularly irregular Abdomen: non distended Microbiology Date/Time Source Procedure Growth Status 08/31/17 23:05 Stool Stool Culture - Preliminary NORMAL FECAL NELSY. Resulted 08/31/17 23:05 Stool Clostridium difficile Toxin Assay - Final Complete Current Medications Medications (Trade) Dose Ordered Sig/Castillo Route PRN Reason Start Time Stop Time Status Last Admin Dose Admin Acetaminophen (Tylenol) 650 mg Q4H PRN ORAL T>100.5 08/30/17 19:45 09/28/17 19:44 Albuterol/ Ipratropium (Albuterol/ Ipratropium) 3 ml Q4H PRN HHN Shortness of Breath 08/30/17 17:30 09/03/17 17:29 Ceftriaxone Sodium 1 gm/ Dextrose 55 ml @ 110 mls/hr Q24H IVPB 08/31/17 11:00 09/06/17 10:59 09/02/17 11:09 Dextrose (Dextrose 50%) 25 ml STAT PRN IV Hypoglycemia BS 60-69 mg/dL 08/30/17 17:30 09/29/17 17:29 Dextrose (Dextrose 50%) 50 ml STAT PRN IV Hypoglycemia BS<60mg/dL 08/30/17 17:30 09/28/17 17:29 Dolutegravir Sodium (Tivicay) 50 mg DAILY ORAL 09/02/17 16:00 10/02/17 15:59 09/03/17 08:29 Dronabinol (Marinol) 2.5 mg BID ORAL 08/30/17 18:00 09/29/17 17:59 09/03/17 08:28 Emtricitabine/ Tenofovir (Truvada 200/ 300mg) 1 tab DAILY ORAL 09/03/17 16:00 10/03/17 15:59 Iron Sucrose 100 mg/Sodium Chloride 115 ml @ 460 mls/hr BEDTIME IV 09/02/17 21:00 09/06/17 21:14 09/02/17 21:23 Lorazepam (Ativan 2mg/ml 1ml) 1 mg Q4H PRN IV For Anxiety 08/30/17 17:30 09/05/17 17:29 Methadone HCl (Methadone HCl) 70 mg DAILY ORAL 08/31/17 09:00 09/06/17 15:59 09/03/17 08:29 Metronidazole (Flagyl) 500 mg Q8HR ORAL 08/31/17 06:00 09/07/17 05:59 09/03/17 05:20 Morphine Sulfate (Morphine Sulfate) 2 mg Q4H PRN IVP Severe Pain (Pain Scale 7-10) 08/30/17 17:30 09/05/17 17:29 Ondansetron HCl (Zofran) 4 mg Q6H PRN IVP Nausea & Vomiting 08/30/17 17:30 09/28/17 17:29 Pantoprazole (Protonix) 40 mg DAILY ORAL 09/03/17 09:00 10/03/17 08:59 09/03/17 08:29 Polyethylene Glycol (Miralax) 17 gm DAILYPRN PRN ORAL Constipation 08/30/17 17:30 09/28/17 17:29 Corey Hutchison MD Sep 03, 2017 09:17
[2017-09-03 09:44] LABS: BASOPHILS % (AUTO) 0.9 % (0.0-2.0); EOSINOPHILS % (AUTO) 2.4 % (0.0-3.0); HEMATOCRIT 30.8 % (37.0-47.0); HEMOGLOBIN 9.8 G/DL (12.0-16.0); MEAN CORPUSCULAR VOLUME 81 FL (80-99); MONOCYTES % (AUTO) 9.7 % (1.0-10.0); PLATELET COUNT 251 K/UL (150-450); RED BLOOD COUNT 3.79 M/UL (4.20-5.40); RED CELL DISTRIBUTION WIDTH 14.6 % (11.6-14.8); WHITE BLOOD COUNT 5.8 K/UL (4.8-10.8)
[2017-09-03 10:15] LABS: ALANINE AMINOTRANSFERASE 10 U/L (12-78); ALBUMIN 2.1 G/DL (3.4-5.0); ALBUMIN/GLOBULIN RATIO 0.5 (1.0-2.7); ALKALINE PHOSPHATASE 69 U/L (46-116); ANION GAP 3 mmol/L (5-15); ASPARTATE AMINO TRANSFERASE 20 U/L (15-37); BILIRUBIN,TOTAL 0.2 MG/DL (0.2-1.0); BLOOD UREA NITROGEN 7 mg/dL (7-18); CALCIUM 8.3 MG/DL (8.5-10.1); CARBON DIOXIDE 32 MMOL/L (21-32); CHLORIDE 102 MMOL/L (98-107); CREATININE 0.7 MG/DL (0.55-1.30); POTASSIUM 3.5 MMOL/L (3.5-5.1); SODIUM 137 MMOL/L (136-145)
[2017-09-03] MEDS: cefTRIAXone 1 GM in D5W 55 ML IVPB SCH (10:29)
[2017-09-03 12:00] VITALS: BP 123/72
--- NOTE | 2017-09-03 12:45 | Diagnostic Imaging Report ---
APPROVED REPORT CPT Code: 01276 Present Symptoms Lower Extremity Pain: Bilateral BILATERAL: Imaging reveals a patent deep venous system bilaterally. There is no evidence of thrombus within the femoral, popliteal or tibial segments. The greater saphenous veins are also within normal limits. Doppler indicates normal spontaneous flow within these segments.
--- NOTE | 2017-09-03 13:35 | Nephrology Progress Note ---
Assessment/Plan Problem List: (1) ATN (acute tubular necrosis) (2) Severe protein-calorie malnutrition (3) HIV disease Assessment Renal failure , Acute / Chronic RESOLVED Anemia Amphetamine and coccaine abuse Plan Plan: DC [facility] KJ noted Hydrate stop 2D Echo PT OT monitor renal parameters DC planning Subjective ROS Limited/Unobtainable: No Constitutional: Reports: malaise Objective Objective Last 24 Hour Vital Signs Date Time Temp Pulse Resp B/P (MAP) Pulse Ox O2 Delivery O2 Flow Rate FiO2 09/03/17 08:00 97.5 70 17 148/78 97.5 09/03/17 07:25 74 18 Room Air 21 09/03/17 04:00 97.7 72 19 151/78 100 97.7 09/03/17 00:00 97.9 80 19 144/76 100 97.9 09/02/17 20:00 97.5 80 19 137/83 100 97.5 09/02/17 19:52 78 18 Room Air 2.0 28 09/02/17 16:00 98.0 80 18 154/80 96 Room Air 98.0 Intake and Output 09/02/17 09/03/17 19:00 07:00 Intake Total 800 ml 115 ml Output Total 0 ml Balance 800 ml 115 ml Intake Oral 600 ml IV Total 200 ml 115 ml Estimated Blood Loss 0 ml # Voids 4 3 # Bowel Movements 1 Laboratory Tests 09/03/17 08:25: White Blood Count 5.8, Red Blood Count 3.79L, Hemoglobin 9.8L, Hematocrit 30.8L , Mean Corpuscular Volume 81, Mean Corpuscular Hemoglobin 25.8L, Mean Corpuscular Hemoglobin Concent 31.7L, Red Cell Distribution Width 14.6, Platelet Count 251, Mean Platelet Volume 6.6, Neutrophils (%) (Auto) 68.0, Lymphocytes (%) (Auto) 19.0L, Monocytes (%) (Auto) 9.7, Eosinophils (%) (Auto) 2.4, Basophils (%) (Auto) 0.9, Sodium Level 137, Potassium Level 3.5, Chloride Level 102, Carbon Dioxide Level 32, Anion Gap 3L, Blood Urea Nitrogen 7, Creatinine 0.7, Estimat Glomerular Filtration Rate > 60, Glucose Level 128H, Calcium Level 8.3L, Total Bilirubin 0.2, Aspartate Amino Transf (AST/SGOT) 20, Alanine Aminotransferase (ALT/SGPT) 10L, Alkaline Phosphatase 69, Total Protein 6.4, Albumin 2.1L, Globulin 4.3, Albumin/Globulin Ratio 0.5L, Helicobacter pylori IgG Antibody [Pending] Height (Feet): 5 Height (Inches): 5.00 Weight (Pounds): 140 General Appearance: no apparent distress Objective no change DIANE GFOF Sep 03, 2017 13:35
--- NOTE | 2017-09-03 14:27 | GI Progress Note ---
Assessment/Plan Problems: (1) Lower GI bleed ICD Codes: K92.2 - Gastrointestinal hemorrhage, unspecified SNOMED: 17320376 (2) Hemorrhagic colitis ICD Codes: K52.9 - Noninfective gastroenteritis and colitis, unspecified SNOMED: 88504187 (3) Severe protein-calorie malnutrition ICD Codes: E43 - Unspecified severe protein-calorie malnutrition SNOMED: 017312481 Status: stable Status Narrative Discussed with Dr. Del Valle. Assessment/Plan SUMMARY OF FINDINGS: 1. Gastric ulcer, status post biopsy. 2. Atrophic gastritis, status post biopsy. 3. Incomplete colonoscopic examination. See above for details. 4. Ischemic-looking areas in the rectum and sigmoid colon, status post biopsy. 5. One colonic polyp removed. 6. Hemorrhoids. RECOMMENDATIONS: okay for DC per GI standpoint Follow up biopsies and treat accordingly. Start the patient on PPI daily. Follow biopsies and treat for H. pylori if it is positive. Sent for H. pylori serology. Sent for CMV serology. The patient most probably will need full repeat endoscopy to evaluate eradication of ulcer in 8 weeks. Also may be repeat colonoscopy at that time too when the ischemic colitis is improved. Subjective Subjective diarrhea tolerating diet Objective Last 24 Hour Vital Signs Date Time Temp Pulse Resp B/P (MAP) Pulse Ox O2 Delivery O2 Flow Rate FiO2 09/03/17 08:00 97.5 70 17 148/78 97.5 09/03/17 07:25 74 18 Room Air 21 09/03/17 04:00 97.7 72 19 151/78 100 97.7 09/03/17 00:00 97.9 80 19 144/76 100 97.9 09/02/17 20:00 97.5 80 19 137/83 100 97.5 09/02/17 19:52 78 18 Room Air 2.0 28 09/02/17 16:00 98.0 80 18 154/80 96 Room Air 98.0 Intake and Output 09/02/17 09/03/17 19:00 07:00 Intake Total 800 ml 115 ml Output Total 0 ml Balance 800 ml 115 ml Intake Oral 600 ml IV Total 200 ml 115 ml Estimated Blood Loss 0 ml # Voids 4 3 # Bowel Movements 1 Laboratory Tests Test 09/03/17 08:25 White Blood Count 5.8 K/UL (4.8-10.8) Red Blood Count 3.79 M/UL (4.20-5.40) L Hemoglobin 9.8 G/DL (12.0-16.0) L Hematocrit 30.8 % (37.0-47.0) L Mean Corpuscular Volume 81 FL (80-99) Mean Corpuscular Hemoglobin 25.8 PG (27.0-31.0) L Mean Corpuscular Hemoglobin Concent 31.7 G/DL (32.0-36.0) L Red Cell Distribution Width 14.6 % (11.6-14.8) Platelet Count 251 K/UL (150-450) Mean Platelet Volume 6.6 FL (6.5-10.1) Neutrophils (%) (Auto) 68.0 % (45.0-75.0) Lymphocytes (%) (Auto) 19.0 % (20.0-45.0) L Monocytes (%) (Auto) 9.7 % (1.0-10.0) Eosinophils (%) (Auto) 2.4 % (0.0-3.0) Basophils (%) (Auto) 0.9 % (0.0-2.0) Sodium Level 137 MMOL/L (136-145) Potassium Level 3.5 MMOL/L (3.5-5.1) Chloride Level 102 MMOL/L (98-107) Carbon Dioxide Level 32 MMOL/L (21-32) Anion Gap 3 mmol/L (5-15) L Blood Urea Nitrogen 7 mg/dL (7-18) Creatinine 0.7 MG/DL (0.55-1.30) Estimat Glomerular Filtration Rate > 60 mL/min (>60) Glucose Level 128 MG/DL (74-106) H Calcium Level 8.3 MG/DL (8.5-10.1) L Total Bilirubin 0.2 MG/DL (0.2-1.0) Aspartate Amino Transf (AST/SGOT) 20 U/L (15-37) Alanine Aminotransferase (ALT/SGPT) 10 U/L (12-78) L Alkaline Phosphatase 69 U/L (46-116) Total Protein 6.4 G/DL (6.4-8.2) Albumin 2.1 G/DL (3.4-5.0) L Globulin 4.3 g/dL Albumin/Globulin Ratio 0.5 (1.0-2.7) L Helicobacter pylori IgG Antibody Pending Height (Feet): 5 Height (Inches): 5.00 Weight (Pounds): 140 General Appearance: WD/WN, no apparent distress, alert Cardiovascular: normal rate Respiratory/Chest: normal breath sounds, no respiratory distress Abdominal Exam: normal bowel sounds, non tender, soft Extremities: normal range of motion, non-tender Krystal Hankins N.P. Sep 03, 2017 14:27
--- NOTE | 2017-09-03 15:41 | Pulmonology Progress Note ---
Assessment/Plan Problems: (1) Hemorrhagic colitis (2) ATN (acute tubular necrosis) (3) Interstitial lung disease (4) Lower GI bleed (5) Severe protein-calorie malnutrition (6) HIV disease Assessment/Plan eating better IV fluids check h/h f/u GI recommendation electrolytes are normal dc planning soon Subjective ROS Limited/Unobtainable: No Constitutional: Reports: no symptoms HEENT: Repors: no symptoms Respiratory: Reports: no symptoms Allergies: Coded Allergies: No Known Allergies (Unverified , 08/29/17) Objective Last 24 Hour Vital Signs Date Time Temp Pulse Resp B/P (MAP) Pulse Ox O2 Delivery O2 Flow Rate FiO2 09/03/17 08:00 97.5 70 17 148/78 97.5 09/03/17 07:25 74 18 Room Air 21 09/03/17 04:00 97.7 72 19 151/78 100 97.7 09/03/17 00:00 97.9 80 19 144/76 100 97.9 09/02/17 20:00 97.5 80 19 137/83 100 97.5 09/02/17 19:52 78 18 Room Air 2.0 28 09/02/17 16:00 98.0 80 18 154/80 96 Room Air 98.0 Intake and Output 09/02/17 09/03/17 19:00 07:00 Intake Total 800 ml 115 ml Output Total 0 ml Balance 800 ml 115 ml Intake Oral 600 ml IV Total 200 ml 115 ml Estimated Blood Loss 0 ml # Voids 4 3 # Bowel Movements 1 Objective General Appearance: cachetic Lines, tubes and drains: peripheral HEENT: normocephalic, atraumatic Neck: non-tender, normal alignment Respiratory/Chest: chest wall non-tender, lungs clear Cardiovascular/Chest: normal peripheral pulses, regular rhythm, regularly irregular Abdomen: normal bowel sounds, non tender, soft Extremities: normal range of motion, normal inspection Microbiology Date/Time Source Procedure Growth Status 08/31/17 23:05 Stool Stool Culture - Preliminary NORMAL FECAL NELSY. Resulted 08/31/17 23:05 Stool Clostridium difficile Toxin Assay - Final Complete Laboratory Tests 09/03/17 08:25: White Blood Count 5.8, Red Blood Count 3.79L, Hemoglobin 9.8L, Hematocrit 30.8L , Mean Corpuscular Volume 81, Mean Corpuscular Hemoglobin 25.8L, Mean Corpuscular Hemoglobin Concent 31.7L, Red Cell Distribution Width 14.6, Platelet Count 251, Mean Platelet Volume 6.6, Neutrophils (%) (Auto) 68.0, Lymphocytes (%) (Auto) 19.0L, Monocytes (%) (Auto) 9.7, Eosinophils (%) (Auto) 2.4, Basophils (%) (Auto) 0.9, Sodium Level 137, Potassium Level 3.5, Chloride Level 102, Carbon Dioxide Level 32, Anion Gap 3L, Blood Urea Nitrogen 7, Creatinine 0.7, Estimat Glomerular Filtration Rate > 60, Glucose Level 128H, Calcium Level 8.3L, Total Bilirubin 0.2, Aspartate Amino Transf (AST/SGOT) 20, Alanine Aminotransferase (ALT/SGPT) 10L, Alkaline Phosphatase 69, Total Protein 6.4, Albumin 2.1L, Globulin 4.3, Albumin/Globulin Ratio 0.5L, Helicobacter pylori IgG Antibody [Pending] Current Medications Medications (Trade) Dose Ordered Sig/Castillo Route PRN Reason Start Time Stop Time Status Last Admin Dose Admin Acetaminophen (Tylenol) 650 mg Q4H PRN ORAL T>100.5 08/30/17 19:45 09/28/17 19:44 Albuterol/ Ipratropium (Albuterol/ Ipratropium) 3 ml Q4H PRN HHN Shortness of Breath 08/30/17 17:30 09/03/17 17:29 Ceftriaxone Sodium 1 gm/ Dextrose 55 ml @ 110 mls/hr Q24H IVPB 08/31/17 11:00 09/06/17 10:59 09/03/17 10:29 Dextrose (Dextrose 50%) 25 ml STAT PRN IV Hypoglycemia BS 60-69 mg/dL 08/30/17 17:30 09/29/17 17:29 Dextrose (Dextrose 50%) 50 ml STAT PRN IV Hypoglycemia BS<60mg/dL 08/30/17 17:30 09/28/17 17:29 Dolutegravir Sodium (Tivicay) 50 mg DAILY ORAL 09/02/17 16:00 10/02/17 15:59 09/03/17 08:29 Dronabinol (Marinol) 2.5 mg BID ORAL 08/30/17 18:00 09/29/17 17:59 09/03/17 08:28 Emtricitabine/ Tenofovir (Truvada 200/ 300mg) 1 tab DAILY ORAL 09/03/17 16:00 10/03/17 15:59 Iron Sucrose 100 mg/Sodium Chloride 115 ml @ 460 mls/hr BEDTIME IV 09/02/17 21:00 09/06/17 21:14 09/02/17 21:23 Lorazepam (Ativan 2mg/ml 1ml) 1 mg Q4H PRN IV For Anxiety 08/30/17 17:30 09/05/17 17:29 Methadone HCl (Methadone HCl) 70 mg DAILY ORAL 08/31/17 09:00 09/06/17 15:59 09/03/17 08:29 Metronidazole (Flagyl) 500 mg Q8HR ORAL 08/31/17 06:00 09/07/17 05:59 09/03/17 14:16 Morphine Sulfate (Morphine Sulfate) 2 mg Q4H PRN IVP Severe Pain (Pain Scale 7-10) 08/30/17 17:30 09/05/17 17:29 Ondansetron HCl (Zofran) 4 mg Q6H PRN IVP Nausea & Vomiting 08/30/17 17:30 09/28/17 17:29 Pantoprazole (Protonix) 40 mg DAILY ORAL 09/03/17 09:00 10/03/17 08:59 09/03/17 08:29 Polyethylene Glycol (Miralax) 17 gm DAILYPRN PRN ORAL Constipation 08/30/17 17:30 09/28/17 17:29 Cordell Mitchell MD Sep 03, 2017 15:41
[2017-09-03 16:00] VITALS: BP 136/82
--- NOTE | 2017-09-04 17:52 | Cardiology Report ---
APPROVED REPORT EKG Measurement Heart [id number] Normal sinus rhythm Possible Left atrial enlargement Left ventricular hypertrophy with repolarization abnormality Prolonged QT Abnormal ECG
--- NOTE | 2017-09-05 11:04 | Discharge Summary ---
Discharge Summary Discharge Summary Discharge Summary DATE OF ADMISSION: 08/29/2017 DATE OF DISCHARGE: 09/03/2017 CONSULTANTS: Dr. Alber Hutchison BRIEF HOSPITAL COURSE: Patient is a 61-year-old female with history of HIV, presented to ED complaining of shortness of breath. She had been extremely weak with diarrhea for some time, and cachectic and dehydrated. She was taken in by EMS, she was found in the car and reported that she had been sleeping there for last few days , she had been extremely weak. She reported diarrhea and was having blood in the stools. She has medical condition significant for hypertension, asthma, and drug abuse. On evaluation at ED, initial presentation showed low blood pressure 83/38, she was hypoxic O2 saturation was 90% on room air. Blood work showed leukocytosis WBC was 15, hemoglobin 10, hematocrit 31. Creatinine was 7.3, BUN was 106. Initial troponin 0.0421. Urine toxicology was positive for cocaine and amphetamines. She had a chest x-ray done that showed left lower lobe infiltrate , there was reticular markings with peripheral and basilar predominance suggesting interstitial lung disease. She was admitted to telemetry for acute kidney failure with tubular necrosis, she was given IV hydration and was followed by sales floor team leader. Kidney ultrasound was negative. Creatinine improved with hydration. Anemia workup was done. She was given Marinol for appetite stimulant. She had iron deficiency and was given IV iron. Stool OB was positive. On 09/02/2017, she underwent upper endoscopy with biopsy and colonoscopy with biopsy. Findings showed gastric ulcer, atrophic gastritis, incomplete colonoscopic examination, there was ischemic-looking areas in the rectum and sigmoid colon; 1 colonic polyp was removed, there was a presence of hemorrhoids. She was given proton pump inhibitors. She was advice need to undergo for a full repeat endoscopy to assess eradication of ulcer in 8 weeks. She had HIV, CD4 count 343. She was diagnosed in 1996 with undetectable viral load. She was given Truvada,Tivicay She was given Rocephin and Flagyl. Stool C. difficile was negative, stool culture and ova and parasites were negative. Blood culture did not isolate any growth. Pathology result was negative for H. pylori. She had reactive gastropathy and tubular adenoma. She was eventually discharged home. FINAL DIAGNOSES: Acute renal failure with acute tubular necrosis HIV Severe protein calorie malnutrition Acute lower GI bleed Interstitial lung disease Hemorrhagic Colitis Gastric ulcer Colonic polyp Status post EGD and colonoscopy on 09/02/2017 Multiple drug abuse DISPOSITION: Patient was discharged home DISCHARGE INSTRUCTIONS: Follow up with PCP in a week. I have been assigned to dictate discharge summary on this account, and I was not involved in the patient's management. Nancy Vázquez NP Sep 05, 2017 11:04
== END 2017-09-03 19:15 | disposition home or self-care (01) | DRG 253 ==
LOC: EDBD 15:39 → EMR 16:15 → 2E 18:30 → EDBEDREQ 20:42 → 4E 08-30 17:01
PROC: 0DBP8ZX Excision of Rectum, Via Natural or Artificial Opening Endoscopic, Diagnostic (ICD-10-PCS; 2017-09-02)
PROC: 0DBN8ZX Excision of Sigmoid Colon, Via Natural or Artificial Opening Endoscopic, Diagnostic (ICD-10-PCS; 2017-09-02)
PROC: 0DBL8ZZ Excision of Transverse Colon, Via Natural or Artificial Opening Endoscopic (ICD-10-PCS; 2017-09-02)
PROC: 0DB68ZX Excision of Stomach, Via Natural or Artificial Opening Endoscopic, Diagnostic (ICD-10-PCS; principal; 2017-09-02 08:24)
PROC: 0DB78ZX Excision of Stomach, Pylorus, Via Natural or Artificial Opening Endoscopic, Diagnostic (ICD-10-PCS; 2017-09-02 08:24)
DX: K92.2 Gastrointestinal hemorrhage, unspecified (principal); N17.0 Acute kidney failure with tubular necrosis; E43 Unspecified severe protein-calorie malnutrition; J84.9 Interstitial pulmonary disease, unspecified; B20 Human immunodeficiency virus [HIV] disease; K52.9 Noninfective gastroenteritis and colitis, unspecified; E86.0 Dehydration; K25.9 Gastric ulcer, unspecified as acute or chronic, without hemorrhage or perforation; K29.40 Chronic atrophic gastritis without bleeding; K64.8 Other hemorrhoids; I10 Essential (primary) hypertension; J45.909 Unspecified asthma, uncomplicated; F15.10 Other stimulant abuse, uncomplicated; F14.10 Cocaine abuse, uncomplicated; F17.200 Nicotine dependence, unspecified, uncomplicated; D50.9 Iron deficiency anemia, unspecified; K63.5 Polyp of colon; K31.9 Disease of stomach and duodenum, unspecified
CPT/HCPCS: 36415; 71045; 74176; 76770; 80053; 80061; 80069; 80202; 80307; 81001; 81003; 82270; 82378; 82550; 82553; 82607; 82728; 82746; 82962; 82977; 83036; 83540; 83550; 83605; 83615; 83690; 83735; 83880; 84100; 84133; 84300; 84443; 84484; 84550; 85007; 85025; 85044; 85060; 85610; 85651; 85730; 86140; 86360; 86580; 86644; 86677; 86710; 87040; 87045; 87081; 87324; 89050; 93005; 93306; 93970; 94003; 94150; 94664; 99285; J2250

== ENCOUNTER 2017-09-06 01:14 | Inpatient (IN) | payer OTHER ==
[~2017-09-06] VITALS: Ht 162.6 cm; Wt 49.9 kg
[2017-09-06] VITALS (8 sets, daily range): BP systolic 103–153; BP diastolic 61–71
[~2017-09-06 01:14] MED LIST: UNOBMED
[2017-09-06] MEDS ORDERED: Pantoprazole Inj IV ONE (01:45)
[2017-09-06 03:01] LABS: HEMATOCRIT 17.5 % (37.0-47.0); MEAN CORPUSCULAR VOLUME 81 FL (80-99); PLATELET COUNT 300 K/UL (150-450); RED BLOOD COUNT 2.15 M/UL (4.20-5.40); RED CELL DISTRIBUTION WIDTH 15.8 % (11.6-14.8); WHITE BLOOD COUNT 15.6 K/UL (4.8-10.8)
[2017-09-06 03:04] LABS: HEMOGLOBIN 5.8 G/DL (12.0-16.0)
[2017-09-06 03:07] LABS: ANION GAP 8 mmol/L (5-15); BLOOD UREA NITROGEN 33 mg/dL (7-18); CALCIUM 7.4 MG/DL (8.5-10.1); CARBON DIOXIDE 28 MMOL/L (21-32); CHLORIDE 106 MMOL/L (98-107); CREATININE 1.6 MG/DL (0.55-1.30); SODIUM 142 MMOL/L (136-145)
[2017-09-06 03:09] LABS: INR 1.2 (0.9-1.1)
[2017-09-06 03:12] LABS: ALANINE AMINOTRANSFERASE 17 U/L (12-78); ALBUMIN 2.1 G/DL (3.4-5.0); ALBUMIN/GLOBULIN RATIO 0.6 (1.0-2.7); ALKALINE PHOSPHATASE 49 U/L (46-116); ASPARTATE AMINO TRANSFERASE 29 U/L (15-37); BILIRUBIN,TOTAL 0.2 MG/DL (0.2-1.0)
--- NOTE | 2017-09-06 04:17 | Emergency Room Report ---
History of Present Illness General Chief Complaint: Gastrointestinal Bleed Source: Medical Record Present Illness HPI 61-year-old female presents ED for evaluation. Patient brought in by EMS. Patient comes from hotel with complaints of blood in stool and vomiting blood. Per EMS blood pressure was low. Unable to establish IV access. Patient denies any abdominal pain. Denies any nausea or vomiting. Denies chest pain or shortness of breath. History of HIV. No other aggravating relieving factors. Denies any other associated symptoms Allergies: Coded Allergies: No Known Allergies (Unverified , 08/29/17) Patient History Past Medical History: HTN, asthma, HIV Past Surgical History: none Pertinent Family History: none Social History: Denies: smoking, alcohol use, drug use Now: No Immunizations: UTD Reviewed Nursing Documentation: PMH: Agreed; PSxH: Agreed Nursing Documentation-PMH Hx Hypertension: Yes Hx Asthma: Yes Review of Systems All Other Systems: negative except mentioned in HPI Physical Exam Vital Signs Date Time Temp Pulse Resp B/P (MAP) Pulse Ox O2 Delivery O2 Flow Rate FiO2 09/06/17 01:19 104 16 54/43 85 Room Air 09/06/17 03:00 2.0 Sp02 EP Interpretation: reviewed, normal General Appearance: no apparent distress, alert, GCS 15, non-toxic, cachetic, thin Head: normocephalic, atraumatic Eyes: bilateral eye normal inspection, bilateral eye PERRL ENT: hearing grossly normal, normal pharynx, no angioedema, normal voice Neck: full range of motion, supple/symm/no masses Respiratory: chest non-tender, lungs clear, normal breath sounds, speaking full sentences Cardiovascular #1: regular rate, rhythm, no edema Cardiovascular #2: 2+ carotid (R), 2+ carotid (L), 2+ radial (R), 2+ radial (L) , 2+ dorsalis pedis (R), 2+ dorsalis pedis (L) Gastrointestinal: normal bowel sounds, non tender, soft, non-distended, no guarding, no rebound Rectal: deferred Genitourinary: normal inspection, no CVA tenderness Musculoskeletal: back normal, gait/station normal, normal range of motion, non- tender Neurologic: alert, oriented x3, responsive, motor strength/tone normal, sensory intact, speech normal Psychiatric: judgement/insight normal, memory normal, mood/affect normal, no suicidal/homicidal ideation Reflexes: 3+ bicep (R), 3+ bicep (L), 3+ tricep (R), 3+ tricep (L), 3+ knee (R) , 3+ knee (L) Skin: normal color, no rash, warm/dry, well hydrated Lymphatic: no adenopathy Procedures Critical Care Time Critical Care Time i. I feel this is a highly complex case requiring extensive working including EKG/Rhythm strip, Xray/CT/US, Blood/urine lab work, repeat exams while in ED, and administration of strong opiates/narcotics for pain control, admission to hospital or close patient follow up. Total time: 30 min bedside evaluation and treatment excludes procedures (EKG). Reason for critical care: GI bleed, hypotensive, anemia Possible complications: hypotension, hypertension, DE, shock, arrhythmias, metabolic acidosis, end organ damage, respiratory failure. Interventions: Labs, IV fluids, chest x-ray. Blood transfusion Course: Patient presenting with vomiting blood and blood in stool. Hypotensive. Difficult IV access. Peripheral EJ access ultimately obtained. Hemoglobin 5.8. Lipase elevated. Chest x-ray shows interstitial disease. Blood pressure improved with IV fluids. PRBCs ordered Consultations: nursing staff, EMS, family Performed by: Dr Jc Tolerated well condition = serious j. because of unstable vital signs this patient had a condition that could potentially threaten life or limb. I feel this is a critical patient who required my full attention while patient was considered critical. 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 After initial history and physical I ordered labs, IV fluids, UA Patient is difficult IV access ultimately obtained with peripheral EJ Labs - noted leukocytosis, Hb 5.8 BUN/Cr elevated. CXR shows diffuse interstitial disease unchanged from prior films Initially hypotensive. Blood pressure improved with IV fluids. Given Protonix , Zofran. PRBCs ordered Case discussed with Dr. Mitchell and he agreed to accept the patient to his service for further care and support I feel this is a highly complex case requiring extensive working including EKG/ Rhythm strip, Xray/CT/US, Blood/urine lab work, repeat exams while in ED, and administration of strong opiates/narcotics for pain control, admission to hospital or close patient follow up. Diagnosis - GI bleed, anemia, interstitial lung disease, severe protein-calorie malnutrition, HIV disease, renal insufficiency Patient admitted to telemetry in serious condition Labs Test 09/06/17 02:40 White Blood Count 15.6 K/UL (4.8-10.8) Red Blood Count 2.15 M/UL (4.20-5.40) Hemoglobin 5.8 G/DL (12.0-16.0) Hematocrit 17.5 % (37.0-47.0) Mean Corpuscular Volume 81 FL (80-99) Mean Corpuscular Hemoglobin 27.0 PG (27.0-31.0) Mean Corpuscular Hemoglobin Concent 33.1 G/DL (32.0-36.0) Red Cell Distribution Width 15.8 % (11.6-14.8) Platelet Count 300 K/UL (150-450) Mean Platelet Volume 6.2 FL (6.5-10.1) Neutrophils (%) (Auto) % (45.0-75.0) Lymphocytes (%) (Auto) % (20.0-45.0) Monocytes (%) (Auto) % (1.0-10.0) Eosinophils (%) (Auto) % (0.0-3.0) Basophils (%) (Auto) % (0.0-2.0) Prothrombin Time 12.2 SEC (9.30-11.50) Prothromb Time International Ratio 1.2 (0.9-1.1) Activated Partial Thromboplast Time 28 SEC (23-33) Sodium Level 142 MMOL/L (136-145) Potassium Level 3.0 MMOL/L (3.5-5.1) Chloride Level 106 MMOL/L (98-107) Carbon Dioxide Level 28 MMOL/L (21-32) Anion Gap 8 mmol/L (5-15) Blood Urea Nitrogen 33 mg/dL (7-18) Creatinine 1.6 MG/DL (0.55-1.30) Estimat Glomerular Filtration Rate 39.5 mL/min (>60) Glucose Level 105 MG/DL (74-106) Calcium Level 7.4 MG/DL (8.5-10.1) Total Bilirubin 0.2 MG/DL (0.2-1.0) Aspartate Amino Transf (AST/SGOT) 29 U/L (15-37) Alanine Aminotransferase (ALT/SGPT) 17 U/L (12-78) Alkaline Phosphatase 49 U/L (46-116) Total Protein 5.4 G/DL (6.4-8.2) Albumin 2.1 G/DL (3.4-5.0) Globulin 3.3 g/dL Albumin/Globulin Ratio 0.6 (1.0-2.7) Lipase 543 U/L (73-393) Chest X-Ray Diagnostic Results Chest X-Ray Diagnostic Results : Chest X-Ray Ordered: Yes # of Views/Limited/Complete: 1 View Indication: Shortness of Breath EP Interpretation: Yes Interpretation: no consolidation, no pneumothorax, other - bilateral interstitial disease Impression: Other - interstitial disease Electronically Signed by: Electronically signed by Arnav Jc MD Last Vital Signs Date Time Temp Pulse Resp B/P (MAP) Pulse Ox O2 Delivery O2 Flow Rate FiO2 09/06/17 03:00 88 16 116/65 100 Room Air 2.0 Status: improved Disposition: ADMITTED INPATIENT Condition: Serious Referrals: NOT CHOSEN IPA/,REFERRING (PCP) Arnav Jc MD Sep 06, 2017 04:17
[2017-09-06 04:46] LABS: APPEARANCE,URINE CLEAR; BILIRUBIN, URINE NEGATIVE (NEGATIVE); COLOR,URINE PALE YELLOW; GLUCOSE, URINE (UA) NEGATIVE (NEGATIVE); KETONES,URINE NEGATIVE (NEGATIVE); LEUKOCYTE ESTERASE ,URINE 1+ (NEGATIVE); NITRITE,URINE NEGATIVE (NEGATIVE); PH,URINE 6 (4.5-8.0); PROTEIN,URINE 2+ (NEGATIVE); UROBILINOGEN,URINE NORMAL MG/DL (0.0-1.0)
[2017-09-06] MEDS ORDERED: Morphine Sulfate 4mg/ml Inj IVP PRN (07:30)
[2017-09-06] MEDS ORDERED: Nitroglycerin Subl 0.4mg tab SL PRN (07:30)
[2017-09-06] MEDS ORDERED: Morphine Sulfate 2mg/ml Inj IVP PRN (07:30)
[2017-09-06] MEDS ORDERED: Mylanta II UD 30ml ORAL PRN (07:30)
[2017-09-06] MEDS: D5NS 1,000 ML IV SCH ×2 (07:36→17:30)
[2017-09-06] MEDS ORDERED: Phytonadione 10 MG in D5W 55 ML IVPB SCH (08:30)
--- NOTE | 2017-09-06 10:23 | Diagnostic Imaging Report ---
Indication: Shortness of breath Technique: One view of the chest Comparison: For 10/13/2017 Findings: Reticular interstitial markings are seen in the left mid and lower lung, appearing similar to the prior study. No new infiltrates. No effusions. Heart size is normal. Impression: Prominent reticular interstitial markings in the left mid and lower lung. Acuity indeterminate although similar to the prior study suggests may be on the basis of interstitial fibrosis. Acute etiologies also possible. Correlate with clinical findings This agrees with the preliminary interpretation provided overnight by [facility] teleradiology service.
[2017-09-06] MEDS: Sucralfate 1gm tab ORAL SCH ×3 (12:19→20:56)
--- NOTE | 2017-09-06 12:32 | GI Initial Consult Note ---
History of Present Illness General Date patient seen: Sep 06, 2017 Time patient seen: 11:00 Reason for Hospitalization: Gastrointestinal Bleed Referring physician: MICHELE MERCHANT Reason for Consultation: GI BLEED Present Illness HPI Patient is a 61-year-old female with history of HIV, presented to ED with reports of dark red blood in her stool. She has medical condition significant for hypertension, asthma, and drug abuse. Patient recent discharge here at [place] s/p EGD/colonoscopy found to have gastric ulcer and ischemic colitis, see full pathology report. She presents today with severe anemia requiring blood transfusion, renal insufficiency and elevated lipase. Pt seen, awake A& Ox3 NAD with no active s/sx of N/V/D. Stated she had one episode of dark emesis yesterday. Denies abdominal pain, soft non tender. Home Meds Reported Medications Unable to Obtain Medications (UNABLE TO OBTAIN MEDS) 1 Ea Ea 08/29/17 Med list reviewed/reconciled: Yes Allergies: Coded Allergies: No Known Allergies (Unverified , 08/29/17) Patient History Limited by: medical condition History Provided By: Patient, Medical Record Past Medical History: other - see HPI Social History: Reports: drug use Review of Systems All Other Systems: negative except mentioned in HPI Physical Exam Vital Signs Date Time Temp Pulse Resp B/P (MAP) Pulse Ox O2 Delivery O2 Flow Rate FiO2 09/06/17 01:19 104 16 54/43 85 Room Air 09/06/17 03:00 2.0 09/06/17 04:23 96.7 96.7 Sp02 EP Interpretation: reviewed, normal Labs Laboratory Tests Test 09/06/17 02:40 09/06/17 04:00 White Blood Count 15.6 K/UL (4.8-10.8) H Red Blood Count 2.15 M/UL (4.20-5.40) L Hemoglobin 5.8 G/DL (12.0-16.0) *L Hematocrit 17.5 % (37.0-47.0) L Mean Corpuscular Volume 81 FL (80-99) Mean Corpuscular Hemoglobin 27.0 PG (27.0-31.0) Mean Corpuscular Hemoglobin Concent 33.1 G/DL (32.0-36.0) Red Cell Distribution Width 15.8 % (11.6-14.8) H Platelet Count 300 K/UL (150-450) Mean Platelet Volume 6.2 FL (6.5-10.1) L Neutrophils (%) (Auto) % (45.0-75.0) Lymphocytes (%) (Auto) % (20.0-45.0) Monocytes (%) (Auto) % (1.0-10.0) Eosinophils (%) (Auto) % (0.0-3.0) Basophils (%) (Auto) % (0.0-2.0) Prothrombin Time 12.2 SEC (9.30-11.50) H Prothromb Time International Ratio 1.2 (0.9-1.1) H Activated Partial Thromboplast Time 28 SEC (23-33) Sodium Level 142 MMOL/L (136-145) Potassium Level 3.0 MMOL/L (3.5-5.1) L Chloride Level 106 MMOL/L (98-107) Carbon Dioxide Level 28 MMOL/L (21-32) Anion Gap 8 mmol/L (5-15) Blood Urea Nitrogen 33 mg/dL (7-18) H Creatinine 1.6 MG/DL (0.55-1.30) H Estimat Glomerular Filtration Rate 39.5 mL/min (>60) Glucose Level 105 MG/DL (74-106) Calcium Level 7.4 MG/DL (8.5-10.1) L Total Bilirubin 0.2 MG/DL (0.2-1.0) Aspartate Amino Transf (AST/SGOT) 29 U/L (15-37) Alanine Aminotransferase (ALT/SGPT) 17 U/L (12-78) Alkaline Phosphatase 49 U/L (46-116) Total Protein 5.4 G/DL (6.4-8.2) L Albumin 2.1 G/DL (3.4-5.0) L Globulin 3.3 g/dL Albumin/Globulin Ratio 0.6 (1.0-2.7) L Lipase 543 U/L (73-393) H Urine Color Pale yellow Urine Appearance Clear Urine pH 6 (4.5-8.0) Urine Specific [place] 1.015 (1.005-1.035) Urine Protein 2+ (NEGATIVE) H Urine Glucose (UA) Negative (NEGATIVE) Urine Ketones Negative (NEGATIVE) Urine Occult Blood 1+ (NEGATIVE) H Urine Nitrite Negative (NEGATIVE) Urine Bilirubin Negative (NEGATIVE) Urine Urobilinogen Normal MG/DL (0.0-1.0) Urine Leukocyte Esterase 1+ (NEGATIVE) H Urine RBC 2-4 /HPF (0 - 2) H Urine WBC 2-4 /HPF (0 - 2) Urine Squamous Epithelial Cells Few /LPF (NONE/OCC) Urine Bacteria Few /HPF (NONE) General Appearance: well appearing, no apparent distress, alert, thin Head: normocephalic EENT: PERRL/EOMI, normal ENT inspection Neck: supple Respiratory: normal breath sounds, no respiratory distress Cardiovascular: normal rate Gastrointestinal: normal inspection, non tender, soft, normal bowel sounds, non -distended Rectal: deferred Genitourinary: no CVA tenderness Musculoskeletal: normal inspection, back normal Neurologic: normal inspection, alert, oriented x3, responsive Psychiatric: normal inspection, judgement/insight normal, memory normal Skin: normal inspection, normal color, no rash, warm/dry, palpation normal, well hydrated Lymphatic: normal inspection, no adenopathy Current Medications Current Medications Medications (Trade) Dose Ordered Sig/Castillo Route PRN Reason Start Time Stop Time Status Last Admin Dose Admin Acetaminophen (Tylenol) 650 mg Q4H PRN ORAL fever>100.5 09/06/17 07:30 10/06/17 07:29 Al Hydroxide/Mg Hydroxide (Mylanta II) 30 ml Q6H PRN ORAL dyspepsia 09/06/17 07:30 10/06/17 07:29 Dextrose (Dextrose 50%) 25 ml STAT PRN IV Hypoglycemia 09/06/17 07:15 10/06/17 07:14 Dextrose (Dextrose 50%) 50 ml STAT PRN IV Hypoglycemia 09/06/17 07:30 10/06/17 07:29 Dextrose/Sodium Chloride 1,000 ml @ 100 mls/hr Q10H IV 09/06/17 07:30 10/06/17 07:29 09/06/17 07:36 Diphenhydramine HCl (Benadryl) 25 mg Q6H PRN ORAL Itching/Pruritis 09/06/17 07:30 10/06/17 07:29 Methadone HCl (Methadone HCl) 70 mg DAILY ORAL 09/06/17 11:30 09/13/17 11:29 09/06/17 12:20 Morphine Sulfate (Morphine Sulfate) 2 mg Q4H PRN IVP Severe Pain (Pain Scale 7-10) 09/06/17 07:30 09/13/17 07:29 Nitroglycerin (Ntg) 0.4 mg Q5M X 3 DOSES PRN SL Prn Chest Pain 09/06/17 07:30 10/06/17 07:29 Non-Formulary Medication (Non-Formulary Med) 1 ea DAILY ORAL 09/06/17 11:15 10/06/17 11:14 UNV Non-Formulary Medication (Non-Formulary Med) 1 ea DAILY ORAL 09/06/17 11:15 10/06/17 11:14 UNV Ondansetron HCl (Zofran) 4 mg Q6H PRN IVP Nausea & Vomiting 09/06/17 07:30 10/06/17 07:29 Polyethylene Glycol (Miralax) 17 gm HSPRN PRN ORAL Constipation 09/06/17 21:00 10/06/17 20:59 Sucralfate (Carafate) 1 gm FOUR TIMES A DAY ORAL 09/06/17 13:00 10/06/17 12:59 09/06/17 12:19 Temazepam (Restoril) 15 mg HSPRN PRN ORAL Insomnia 09/06/17 21:00 09/13/17 20:59 GI: Plan Problems: (1) Dehydration (2) Anemia due to blood loss (3) GI bleed (4) Severe protein-calorie malnutrition (5) Hemorrhagic colitis (6) Anemia (7) Lower GI bleed (8) HIV disease Plan s/p EGD/colonoscopy 09/02/17 SUMMARY OF FINDINGS: 1. Gastric ulcer, status post biopsy. 2. Atrophic gastritis, status post biopsy. 3. Incomplete colonoscopic examination. See above for details. 4. Ischemic-looking areas in the rectum and sigmoid colon, status post biopsy. 5. One colonic polyp removed. 6. Hemorrhoids. H. Pylori negative pathology, see full report >> benign mucosa with ischemic changes in multiple regions of the colon. CMV IgG Ab positive RECOMMENDATIONS: defer GI procedures, see above summary. CLD, adv as tolerated ppi BID + Carafate monitor H&H, prn transfusion needs repeat endoscopy to evaluate eradication of ulcer in 8 weeks. Also may be repeat colonoscopy at that time too when the colitis is improved. Discussed with Dr. Del Valle. Thank you for this patient referral, we will follow. Krystal Hankins N.P. Sep 06, 2017 12:32
--- NOTE | 2017-09-06 14:43 | Cardiology Report ---
APPROVED REPORT EKG Measurement Heart [id number] ND [id number] Normal sinus rhythm Possible Left atrial enlargement Left ventricular hypertrophy with repolarization abnormality Abnormal ECG
--- NOTE | 2017-09-06 15:51 | Consultation ---
Consult Note Assessment/Plan [id number] ASSESSMENT: The patient is a 61-year-old female with, Human immunodeficiency virus, CD4 : 343 ( 08/30 ) diagnosed in 1996 with undetectable viral load Diarrhea x3 days, SP gastrointestinal bleed. 09/02 SP EGD / colonscopy: gastric ulcer, colitis C. difficile : neg CT: Abnormal appearance of the wall of the stomach which appears thick. Questionable thickening of the left hemicolon wall. Colitis not excluded. Afebrile. Status post leukocytosis. Anemia Smoker cigarette / cocaine/ ampho abuse Ex IVDA no history of hepatitis PLAN: Monitpr pt off of AB RX cont HIV meds 08/30 SP Rocephin and Flagyl d# 5 Monitor CBC. Monitor BMP. Nephrology following GI cons following PCRB Tx Corey Hutchison MD Sep 06, 2017 15:51
--- NOTE | 2017-09-06 19:00 | Consultation ---
DATE OF CONSULTATION: 09/06/2017 HEMATOLOGY/ONCOLOGY CONSULTATION CONSULTING PHYSICIAN: Stef Barroso M.D. REQUESTING PHYSICIAN: Cordell Mitchell M.D. REASON FOR CONSULTATION: Evaluation of severe anemia, hemoglobin 5.8 and INR 1.2. IDENTIFYING DATA: Dear Dr. Mitchell, The patient is a pleasant 61-year-old female with past medical history significant for hypertension, asthma, HIV, has been taking her HIV medications, complains of blood in stool, vomiting of blood, hematochezia, and hematemesis. Denies any abdominal pain. No fever. No chills. No night sweats. Again, has a history of HIV and noticed to have bleeding and Hematology service consulted for further evaluation of anemia. PAST MEDICAL HISTORY: Asthma, HIV, hypertension. PAST SURGICAL HISTORY: None noted. SOCIAL HISTORY: No alcohol, tobacco, or illicit drug use. IMMUNIZATIONS: Up-to-date. FAMILY HISTORY: Noncontributory. REVIEW OF SYSTEMS: CONSTITUTIONAL: No fever, chills, or night sweats. SKIN: No rashes, bumps, or itching. HEENT: No headache, hearing or vision changes. BREASTS: No lumps, pain, or discharge. PULMONARY: No cough, sputum, or shortness of breath. GASTROINTESTINAL: No nausea, vomiting, or diarrhea. GENITOURINARY: No dysuria, frequency, or urgency. MUSCULOSKELETAL: No joint swelling, muscle pain, or trauma. PHYSICAL EXAMINATION: VITAL SIGNS: Reviewed. GENERAL: No distress. PULMONARY: Decreased breath sounds. CARDIOVASCULAR: Regular rate. No S3 or S4. ABDOMEN: Soft, nontender, and nondistended. EXTREMITIES: A 1+ edema. LABORATORY DATA: WBC 15.6, hemoglobin 5.8, hematocrit 18, platelet count 200,000. ASSESSMENT AND RECOMMENDATIONS: 1. Anemia due to severe iron deficiency. Consider to begin the patient on iron once anemia is confirmed. In addition, obtain Gastroenterology evaluation as per primary team if necessary . 2. Microcytosis, likely secondary to underlying anemia of iron deficiency. 3. Leukocytosis, likely secondary to reactive process. 4. Coagulopathy, potentially secondary to history of human immunodeficiency virus and history of pulmonary disease. 5. Acute kidney injury. The patient's baseline is approximately 7.3 creatinine 0.7. 6. Hypokalemia. Replete potassium. 7. Constipation. Start the patient on stool softener. I appreciate the consultation. Stef Barroso M.D. DR: David JOB#: [id number] CC:
--- NOTE | 2017-09-06 19:44 | History and Physical ---
History of Present Illness General Date patient seen: Sep 06, 2017 Reason for Hospitalization: Gastrointestinal Bleed Present Illness HPI 61-year-old female with hx of HIV presented to ED for evaluation of blood in stool and vomiting blood. Per EMS blood pressure was low. Denies any nausea or vomiting. Denies chest pain or shortness of breath. History of HIV. No other aggravating relieving factors. Denies any other associated symptoms. Her hem was 5. She was started on prbc and tranferred to telemetry. Allergies: Coded Allergies: No Known Allergies (Unverified , 08/29/17) Medication History Miscellaneous Medications Unable to Obtain Medications (Unable To Obtain Meds), (Reported) Patient History Healthcare decision maker Resuscitation status Full Code Advanced Directive on File Past Medical/Surgical History Past Medical/Surgical History: (1) Renal insufficiency (2) Interstitial lung disease (3) Severe protein-calorie malnutrition (4) HIV disease Review of Systems All Other Systems: negative except mentioned in HPI Physical Exam General Appearance: cachetic Lines, tubes and drains: peripheral HEENT: normocephalic, atraumatic Neck: non-tender, normal alignment Respiratory/Chest: chest wall non-tender Breasts: no masses Cardiovascular/Chest: normal rate Abdomen: normal bowel sounds, non tender Last 24 Hour Vital Signs Date Time Temp Pulse Resp B/P (MAP) Pulse Ox O2 Delivery O2 Flow Rate FiO2 09/06/17 16:17 97.0 85 14 153/71 100 Room Air 2.0 97.0 09/06/17 15:40 97.0 09/06/17 15:35 80 09/06/17 14:41 97.0 09/06/17 12:07 97.0 84 14 120/68 100 Room Air 2.0 97.0 09/06/17 11:46 84 09/06/17 08:01 97.2 87 14 111/69 100 Room Air 2.0 97.2 09/06/17 07:37 84 09/06/17 05:55 97.1 88 11 114/64 100 Room Air 2.0 97.1 09/06/17 05:34 97.1 88 11 114/64 100 Room Air 2.0 97.1 09/06/17 04:55 97.2 94 11 97.2 09/06/17 04:50 97.0 92 10 97.0 09/06/17 04:45 96.9 92 11 96.9 09/06/17 04:40 96.7 84 10 103/61 100 Room Air 2.0 96.7 09/06/17 04:23 96.7 84 10 103/61 100 Room Air 2.0 96.7 09/06/17 03:00 88 16 116/65 100 Room Air 2.0 09/06/17 01:19 104 16 54/43 85 Room Air Intake and Output 09/05/17 09/06/17 19:00 07:00 Intake Total 0 ml Output Total 120 ml Balance -120 ml Intake Oral 0 ml Output Urine Total 120 ml Laboratory Tests Test 09/06/17 02:40 09/06/17 04:00 White Blood Count 15.6 K/UL (4.8-10.8) H Red Blood Count 2.15 M/UL (4.20-5.40) L Hemoglobin 5.8 G/DL (12.0-16.0) *L Hematocrit 17.5 % (37.0-47.0) L Mean Corpuscular Volume 81 FL (80-99) Mean Corpuscular Hemoglobin 27.0 PG (27.0-31.0) Mean Corpuscular Hemoglobin Concent 33.1 G/DL (32.0-36.0) Red Cell Distribution Width 15.8 % (11.6-14.8) H Platelet Count 300 K/UL (150-450) Mean Platelet Volume 6.2 FL (6.5-10.1) L Neutrophils (%) (Auto) % (45.0-75.0) Lymphocytes (%) (Auto) % (20.0-45.0) Monocytes (%) (Auto) % (1.0-10.0) Eosinophils (%) (Auto) % (0.0-3.0) Basophils (%) (Auto) % (0.0-2.0) Prothrombin Time 12.2 SEC (9.30-11.50) H Prothromb Time International Ratio 1.2 (0.9-1.1) H Activated Partial Thromboplast Time 28 SEC (23-33) Sodium Level 142 MMOL/L (136-145) Potassium Level 3.0 MMOL/L (3.5-5.1) L Chloride Level 106 MMOL/L (98-107) Carbon Dioxide Level 28 MMOL/L (21-32) Anion Gap 8 mmol/L (5-15) Blood Urea Nitrogen 33 mg/dL (7-18) H Creatinine 1.6 MG/DL (0.55-1.30) H Estimat Glomerular Filtration Rate 39.5 mL/min (>60) Glucose Level 105 MG/DL (74-106) Calcium Level 7.4 MG/DL (8.5-10.1) L Total Bilirubin 0.2 MG/DL (0.2-1.0) Aspartate Amino Transf (AST/SGOT) 29 U/L (15-37) Alanine Aminotransferase (ALT/SGPT) 17 U/L (12-78) Alkaline Phosphatase 49 U/L (46-116) Total Protein 5.4 G/DL (6.4-8.2) L Albumin 2.1 G/DL (3.4-5.0) L Globulin 3.3 g/dL Albumin/Globulin Ratio 0.6 (1.0-2.7) L Lipase 543 U/L (73-393) H Urine Color Pale yellow Urine Appearance Clear Urine pH 6 (4.5-8.0) Urine Specific Johnston 1.015 (1.005-1.035) Urine Protein 2+ (NEGATIVE) H Urine Glucose (UA) Negative (NEGATIVE) Urine Ketones Negative (NEGATIVE) Urine Occult Blood 1+ (NEGATIVE) H Urine Nitrite Negative (NEGATIVE) Urine Bilirubin Negative (NEGATIVE) Urine Urobilinogen Normal MG/DL (0.0-1.0) Urine Leukocyte Esterase 1+ (NEGATIVE) H Urine RBC 2-4 /HPF (0 - 2) H Urine WBC 2-4 /HPF (0 - 2) Urine Squamous Epithelial Cells Few /LPF (NONE/OCC) Urine Bacteria Few /HPF (NONE) Height (Feet): 5 Height (Inches): 4.00 Weight (Pounds): 110 Medications Current Medications Medications (Trade) Dose Ordered Sig/Castillo Route PRN Reason Start Time Stop Time Status Last Admin Dose Admin Acetaminophen (Tylenol) 650 mg Q4H PRN ORAL fever>100.5 09/06/17 07:30 10/06/17 07:29 09/06/17 14:41 Al Hydroxide/Mg Hydroxide (Mylanta II) 30 ml Q6H PRN ORAL dyspepsia 09/06/17 07:30 10/06/17 07:29 Dextrose (Dextrose 50%) 25 ml STAT PRN IV Hypoglycemia 09/06/17 07:15 10/06/17 07:14 Dextrose (Dextrose 50%) 50 ml STAT PRN IV Hypoglycemia 09/06/17 07:30 10/06/17 07:29 Dextrose/Sodium Chloride 1,000 ml @ 100 mls/hr Q10H IV 09/06/17 07:30 10/06/17 07:29 09/06/17 07:36 Diphenhydramine HCl (Benadryl) 25 mg Q6H PRN ORAL Itching/Pruritis 09/06/17 07:30 10/06/17 07:29 Methadone HCl (Methadone HCl) 70 mg DAILY ORAL 09/06/17 11:30 09/13/17 11:29 09/06/17 12:20 Morphine Sulfate (Morphine Sulfate) 2 mg Q4H PRN IVP Severe Pain (Pain Scale 7-10) 09/06/17 07:30 09/13/17 07:29 Nitroglycerin (Ntg) 0.4 mg Q5M X 3 DOSES PRN SL Prn Chest Pain 09/06/17 07:30 10/06/17 07:29 Non-Formulary Medication (Non-Formulary Med) 1 ea DAILY ORAL 09/06/17 11:15 10/06/17 11:14 UNV Non-Formulary Medication (Non-Formulary Med) 1 ea DAILY ORAL 09/06/17 11:15 10/06/17 11:14 UNV Ondansetron HCl (Zofran) 4 mg Q6H PRN IVP Nausea & Vomiting 09/06/17 07:30 10/06/17 07:29 Pantoprazole (Protonix) 40 mg EVERY 12 HOURS IVP 09/06/17 21:00 10/06/17 20:59 Polyethylene Glycol (Miralax) 17 gm HSPRN PRN ORAL Constipation 09/06/17 21:00 10/06/17 20:59 Sucralfate (Carafate) 1 gm FOUR TIMES A DAY ORAL 09/06/17 13:00 10/06/17 12:59 09/06/17 18:00 Temazepam (Restoril) 15 mg HSPRN PRN ORAL Insomnia 09/06/17 21:00 09/13/17 20:59 Assessment/Plan Problem List: (1) GI bleed ICD Codes: K92.2 - Gastrointestinal hemorrhage, unspecified SNOMED: 49348215 Qualifiers: Qualified Codes: K92.2 - Gastrointestinal hemorrhage, unspecified (2) Anemia ICD Codes: D64.9 - Anemia, unspecified SNOMED: 179287595 Qualifiers: Qualified Codes: D64.9 - Anemia, unspecified (3) ATN (acute tubular necrosis) ICD Codes: N17.0 - Acute kidney failure with tubular necrosis SNOMED: 87207457 (4) Interstitial lung disease ICD Codes: J84.9 - Interstitial pulmonary disease, unspecified SNOMED: 630778392 Assessment/Plan npo iv fluids prbc prn GI and ID to see. Cordell Mitchell MD Sep 06, 2017 19:44
[2017-09-06 20:28] LABS: BASOPHILS % (AUTO) 0.7 % (0.0-2.0); EOSINOPHILS % (AUTO) 2.2 % (0.0-3.0); HEMATOCRIT 28.3 % (37.0-47.0); HEMOGLOBIN 9.7 G/DL (12.0-16.0); LYMPHOCYTES % (AUTO) 17.9 % (20.0-45.0); MEAN CORPUSCULAR VOLUME 83 FL (80-99); MONOCYTES % (AUTO) 8.5 % (1.0-10.0); NEUTROPHILS % (AUTO) 70.7 % (45.0-75.0); PLATELET COUNT 234 K/UL (150-450); RED BLOOD COUNT 3.41 M/UL (4.20-5.40); RED CELL DISTRIBUTION WIDTH 14.4 % (11.6-14.8); WHITE BLOOD COUNT 9.8 K/UL (4.8-10.8)
[2017-09-06 20:43] LABS: ANION GAP 4 mmol/L (5-15); BLOOD UREA NITROGEN 20 mg/dL (7-18); CALCIUM 7.8 MG/DL (8.5-10.1); CARBON DIOXIDE 31 MMOL/L (21-32); CHLORIDE 103 MMOL/L (98-107); POTASSIUM 3.7 MMOL/L (3.5-5.1); SODIUM 138 MMOL/L (136-145)
[2017-09-06] MEDS: Pantoprazole Inj IVP SCH (20:56)
[2017-09-06] MEDS ORDERED: Miralax 17gm pkt ORAL PRN (21:00)
[2017-09-07] VITALS: BP 128/66
[2017-09-07] MEDS: D5NS 1,000 ML IV SCH ×3 (03:34→21:00)
[2017-09-07 04:00] VITALS: BP 127/73
--- NOTE | 2017-09-07 05:00 | Consultation ---
DATE OF CONSULTATION: 09/06/2017 INFECTIOUS DISEASE CONSULTATION CONSULTING PHYSICIAN: Corey Hutchison M.D. REQUESTING PHYSICIAN: Cordell Mitchell M.D. REASON FOR CONSULT: Evaluation of the patient for HIV, leukocytosis, possible intra-abdominal sepsis. HISTORY OF PRESENT ILLNESS: The patient is a 61-year-old female, well known to our service from a recent admission to this medical center. The patient came to the hospital with a chief complaint of vomiting ? blood, however, the patient mentioned she ate some raspberry before the incidence. Also, she was not completely clear if she had any blood in the stools. She is complaining of abdominal pain. The patient was found to have leukocytosis and also has history of HIV and Infectious Disease consultation has been requested for further evaluation of the patient's antibiotic management. PAST MEDICAL HISTORY: 1. HIV with CD4 count of 343 as of 08/30/2017. 2. Recent C. difficile negative. 3. Smoker and IV drug abuser. Also, the patient abuses cocaine and methamphetamine. MEDICATIONS: The patient would bring in the list of her HIV medications to be restarted, off of antibiotics. ALLERGIES: No known drug allergies. SOCIAL HISTORY: As mentioned above. FAMILY HISTORY: Noncontributory. REVIEW OF SYSTEMS: Ten-point review was done, except what was mentioned has been negative. PHYSICAL EXAMINATION: VITAL SIGNS: Temperature 97 degrees, blood pressure 120/68, pulse 86, and respiratory rate 18. HEENT: No pale conjunctivae. No icterus. NECK: No lymphadenopathy. CHEST: Clear. HEART: S1 and S2. ABDOMEN: Soft, appears to be mild to moderately tender in all four quadrants. NEUROLOGIC: Awake and alert. SKIN: No rash. LABORATORY AND DIAGNOSTIC DATA: WBC 15, hemoglobin 5.8, and platelets 300. BUN 33 and creatinine 1.6. ALT, AST, and alkaline phosphatase unremarkable. Stool for ova and parasite negative. ASSESSMENT: The patient is a 61-year-old female with: 1. Leukocytosis (appears to be due to GI bleed). 2. Anemia, hemoglobin dropped from 9 to 5. 3. History of human immunodeficiency virus, CD4 count 300. The patient is on HIV regimen. PLAN: 1. We will monitor the patient off of antibiotics. 2. We will continue the patient on HIV medication (is available). 3. We will follow GI recommendations. 4. Monitor CBC and BMP. 5. Monitor cultures. 6. Leukocytosis due to acute distress and GI bleed and no need for sepsis workup at this time. Thank you, Dr. Mitchell, for allowing me to participate in the care of this patient. I will follow the patient with you during this hospitalization. Corey Hutchison M.D. DR: DIANA JOB#: [id number] CC:
[2017-09-07 08:00] VITALS: BP 127/74
[2017-09-07] MEDS: Pantoprazole Inj IVP SCH (08:38)
[2017-09-07] MEDS: Sucralfate 1gm tab ORAL SCH ×5 (08:38→21:05)
[2017-09-07 08:50] LABS: BASOPHILS % (AUTO) 0.8 % (0.0-2.0); EOSINOPHILS % (AUTO) 2.1 % (0.0-3.0); HEMATOCRIT 26.8 % (37.0-47.0); HEMOGLOBIN 9.3 G/DL (12.0-16.0); LYMPHOCYTES % (AUTO) 13.1 % (20.0-45.0); MEAN CORPUSCULAR VOLUME 84 FL (80-99); MONOCYTES % (AUTO) 5.5 % (1.0-10.0); NEUTROPHILS % (AUTO) 78.6 % (45.0-75.0); PLATELET COUNT 227 K/UL (150-450); RED CELL DISTRIBUTION WIDTH 14.9 % (11.6-14.8); WHITE BLOOD COUNT 7.9 K/UL (4.8-10.8)
[2017-09-07 09:23] LABS: ALANINE AMINOTRANSFERASE 22 U/L (12-78); ALBUMIN 2.5 G/DL (3.4-5.0); ALBUMIN/GLOBULIN RATIO 0.6 (1.0-2.7); ALKALINE PHOSPHATASE 66 U/L (46-116); AMYLASE 112 U/L (25-115); ANION GAP 4 mmol/L (5-15); ASPARTATE AMINO TRANSFERASE 29 U/L (15-37); BILIRUBIN,TOTAL 0.3 MG/DL (0.2-1.0); BLOOD UREA NITROGEN 12 mg/dL (7-18); CALCIUM 7.9 MG/DL (8.5-10.1); CARBON DIOXIDE 30 MMOL/L (21-32); CHLORIDE 103 MMOL/L (98-107); CREATININE 0.9 MG/DL (0.55-1.30); PHOSPHORUS 2.2 MG/DL (2.5-4.9); POTASSIUM 3.6 MMOL/L (3.5-5.1); SODIUM 137 MMOL/L (136-145)
[2017-09-07] MEDS ORDERED: Nitroglycerin Subl 0.4mg tab SL PRN (11:00)
[2017-09-07] MEDS ORDERED: Mylanta II UD 30ml ORAL PRN (11:30)
[2017-09-07] MEDS ORDERED: Morphine Sulfate 4mg/ml Inj IVP PRN (11:30)
[2017-09-07] MEDS: Dolutegravir Sodium 50mg tab ORAL SCH (11:41)
[2017-09-07 12:00] VITALS: BP 117/64
[2017-09-07] MEDS ORDERED: Dolutegravir Sodium 50mg tab ORAL SCH (12:00)
--- NOTE | 2017-09-07 12:49 | General Progress Note ---
Assessment/Plan Problem List: (1) Polysubstance abuse ICD Codes: F19.10 - Other psychoactive substance abuse, uncomplicated SNOMED: 238763574 (2) Gastritis ICD Codes: K29.70 - Gastritis, unspecified, without bleeding SNOMED: 8347008 (3) Ischemic colitis ICD Codes: K55.9 - Vascular disorder of intestine, unspecified SNOMED: 14046814 (4) HIV disease ICD Codes: B20 - Human immunodeficiency virus [HIV] disease SNOMED: 31923305 (5) Anemia ICD Codes: D64.9 - Anemia, unspecified SNOMED: 936072856 Qualifiers: Qualified Codes: D64.9 - Anemia, unspecified Assessment/Plan s/p EGD/colonoscopy 09/02/17 SUMMARY OF FINDINGS: 1. Gastric ulcer, status post biopsy. 2. Atrophic gastritis, status post biopsy. 3. Incomplete colonoscopic examination. See above for details. 4. Ischemic-looking areas in the rectum and sigmoid colon, status post biopsy. 5. One colonic polyp removed. 6. Hemorrhoids. H. Pylori negative pathology, see full report >> benign mucosa with ischemic changes in multiple regions of the colon. CMV IgG Ab positive RECOMMENDATIONS: defer GI procedures, see above summary. ppi BID + Carafate monitor H&H, prn transfusion needs repeat endoscopy to evaluate eradication of ulcer in 8 weeks. Also may be repeat colonoscopy at that time too when the colitis is improved. Subjective ROS Limited/Unobtainable: Yes Allergies: Coded Allergies: No Known Allergies (Unverified , 08/29/17) Subjective no event Objective Last 24 Hour Vital Signs Date Time Temp Pulse Resp B/P (MAP) Pulse Ox O2 Delivery O2 Flow Rate FiO2 09/07/17 08:00 98.2 74 19 127/74 100 Room Air 98.2 09/07/17 04:00 98.2 82 18 127/73 97 Room Air 2.0 98.2 09/07/17 04:00 76 09/07/17 00:00 79 09/07/17 00:00 97.5 75 19 128/66 97 Room Air 2.0 97.5 09/06/17 20:00 88 09/06/17 20:00 97.7 90 18 119/61 95 Room Air 2.0 97.7 09/06/17 16:17 97.0 85 14 153/71 100 Room Air 2.0 97.0 09/06/17 15:40 97.0 09/06/17 15:35 80 09/06/17 14:41 97.0 Intake and Output 09/06/17 09/07/17 19:00 07:00 # Voids 2 # Bowel Movements 1 Laboratory Tests 09/06/17 18:05: White Blood Count 9.8, Red Blood Count 3.41L, Hemoglobin 9.7#L, Hematocrit 28.3# L, Mean Corpuscular Volume 83, Mean Corpuscular Hemoglobin 28.5, Mean Corpuscular Hemoglobin Concent 34.3, Red Cell Distribution Width 14.4, Platelet Count 234, Mean Platelet Volume 6.6, Neutrophils (%) (Auto) 70.7, Lymphocytes (% ) (Auto) 17.9L, Monocytes (%) (Auto) 8.5, Eosinophils (%) (Auto) 2.2, Basophils (%) (Auto) 0.7, Sodium Level 138, Potassium Level 3.7, Chloride Level 103, Carbon Dioxide Level 31, Anion Gap 4L, Blood Urea Nitrogen 20H, Creatinine 1.0, Estimat Glomerular Filtration Rate > 60, Glucose Level 93, Calcium Level 7.8L 09/07/17 08:00: White Blood Count 7.9, Red Blood Count 3.20L, Hemoglobin 9.3L, Hematocrit 26.8L , Mean Corpuscular Volume 84, Mean Corpuscular Hemoglobin 29.1, Mean Corpuscular Hemoglobin Concent 34.8, Red Cell Distribution Width 14.9H, Platelet Count 227, Mean Platelet Volume 6.8, Neutrophils (%) (Auto) 78.6H, Lymphocytes (%) (Auto) 13.1L, Monocytes (%) (Auto) 5.5, Eosinophils (%) (Auto) 2.1, Basophils (%) (Auto) 0.8, Sodium Level 137, Potassium Level 3.6, Chloride Level 103, Carbon Dioxide Level 30, Anion Gap 4L, Blood Urea Nitrogen 12, Creatinine 0.9, Estimat Glomerular Filtration Rate > 60, Glucose Level 82, Calcium Level 7.9L, Prothrombin Time 10.3, Prothromb Time International Ratio 1.0, Activated Partial Thromboplast Time 25, Phosphorus Level 2.2L, Magnesium Level 1.4L, Total Bilirubin 0.3, Aspartate Amino Transf (AST/SGOT) 29, Alanine Aminotransferase (ALT/SGPT) 22, Alkaline Phosphatase 66, Total Protein 6.6, Albumin 2.5L, Globulin 4.1, Albumin/Globulin Ratio 0.6L, Amylase Level 112, Lipase 244 Height (Feet): 5 Height (Inches): 4.00 Weight (Pounds): 110 General Appearance: no apparent distress EENT: normal ENT inspection Neck: supple Cardiovascular: normal rate Respiratory/Chest: decreased breath sounds Abdomen: normal bowel sounds, non tender, soft Extremities: non-tender ABILIO GARCIA Sep 07, 2017 12:49
--- NOTE | 2017-09-07 13:48 | Pulmonology Progress Note ---
Assessment/Plan Problems: (1) GI bleed (2) Anemia (3) ATN (acute tubular necrosis) (4) Interstitial lung disease Assessment/Plan h/h better /fu GI evaluation advance diet check h/h resume anitviral meds. Subjective ROS Limited/Unobtainable: No Allergies: Coded Allergies: No Known Allergies (Unverified , 08/29/17) Objective Last 24 Hour Vital Signs Date Time Temp Pulse Resp B/P (MAP) Pulse Ox O2 Delivery O2 Flow Rate FiO2 09/07/17 08:00 98.2 74 19 127/74 100 Room Air 98.2 09/07/17 04:00 98.2 82 18 127/73 97 Room Air 2.0 98.2 09/07/17 04:00 76 09/07/17 00:00 79 09/07/17 00:00 97.5 75 19 128/66 97 Room Air 2.0 97.5 09/06/17 20:00 88 09/06/17 20:00 97.7 90 18 119/61 95 Room Air 2.0 97.7 09/06/17 16:17 97.0 85 14 153/71 100 Room Air 2.0 97.0 09/06/17 15:40 97.0 09/06/17 15:35 80 09/06/17 14:41 97.0 Intake and Output 09/06/17 09/07/17 19:00 07:00 # Voids 2 # Bowel Movements 1 General Appearance: cachetic HEENT: normocephalic, atraumatic Respiratory/Chest: chest wall non-tender, lungs clear Cardiovascular: normal rate, regular rhythm Abdomen: normal bowel sounds, soft, non tender, non distended Genitourinary: normal external genitalia Extremities: no cyanosis Skin: no rash 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 Complete 09/06/17 02:30 Rectum VRE Culture - Final NO VANCOMYCIN RESISTANT ENTEROCOCCUS ... Complete Laboratory Tests 09/06/17 18:05: White Blood Count 9.8, Red Blood Count 3.41L, Hemoglobin 9.7#L, Hematocrit 28.3# L, Mean Corpuscular Volume 83, Mean Corpuscular Hemoglobin 28.5, Mean Corpuscular Hemoglobin Concent 34.3, Red Cell Distribution Width 14.4, Platelet Count 234, Mean Platelet Volume 6.6, Neutrophils (%) (Auto) 70.7, Lymphocytes (% ) (Auto) 17.9L, Monocytes (%) (Auto) 8.5, Eosinophils (%) (Auto) 2.2, Basophils (%) (Auto) 0.7, Sodium Level 138, Potassium Level 3.7, Chloride Level 103, Carbon Dioxide Level 31, Anion Gap 4L, Blood Urea Nitrogen 20H, Creatinine 1.0, Estimat Glomerular Filtration Rate > 60, Glucose Level 93, Calcium Level 7.8L 09/07/17 08:00: White Blood Count 7.9, Red Blood Count 3.20L, Hemoglobin 9.3L, Hematocrit 26.8L , Mean Corpuscular Volume 84, Mean Corpuscular Hemoglobin 29.1, Mean Corpuscular Hemoglobin Concent 34.8, Red Cell Distribution Width 14.9H, Platelet Count 227, Mean Platelet Volume 6.8, Neutrophils (%) (Auto) 78.6H, Lymphocytes (%) (Auto) 13.1L, Monocytes (%) (Auto) 5.5, Eosinophils (%) (Auto) 2.1, Basophils (%) (Auto) 0.8, Sodium Level 137, Potassium Level 3.6, Chloride Level 103, Carbon Dioxide Level 30, Anion Gap 4L, Blood Urea Nitrogen 12, Creatinine 0.9, Estimat Glomerular Filtration Rate > 60, Glucose Level 82, Calcium Level 7.9L, Prothrombin Time 10.3, Prothromb Time International Ratio 1.0, Activated Partial Thromboplast Time 25, Phosphorus Level 2.2L, Magnesium Level 1.4L, Total Bilirubin 0.3, Aspartate Amino Transf (AST/SGOT) 29, Alanine Aminotransferase (ALT/SGPT) 22, Alkaline Phosphatase 66, Total Protein 6.6, Albumin 2.5L, Globulin 4.1, Albumin/Globulin Ratio 0.6L, Amylase Level 112, Lipase 244 Current Medications Medications (Trade) Dose Ordered Sig/Castillo Route PRN Reason Start Time Stop Time Status Last Admin Dose Admin Acetaminophen (Tylenol) 650 mg Q4H PRN ORAL fever>100.5 09/07/17 11:30 10/06/17 07:29 Al Hydroxide/Mg Hydroxide (Mylanta II) 30 ml Q6H PRN ORAL dyspepsia 09/07/17 11:30 10/06/17 11:29 Dextrose (Dextrose 50%) 25 ml STAT PRN IV Hypoglycemia 09/07/17 11:30 10/07/17 11:29 Dextrose (Dextrose 50%) 50 ml STAT PRN IV Hypoglycemia 09/07/17 11:30 10/07/17 11:29 Dextrose/Sodium Chloride 1,000 ml @ 100 mls/hr Q10H IV 09/07/17 11:00 10/06/17 07:29 09/07/17 11:44 Diphenhydramine HCl (Benadryl) 25 mg Q6H PRN ORAL Itching/Pruritis 09/07/17 11:30 10/06/17 11:29 Dolutegravir Sodium (Tivicay) 50 mg DAILY ORAL 09/07/17 12:00 10/07/17 11:59 09/07/17 11:41 Emtricitabine/ Tenofovir (Truvada 200/ 300mg) 1 tab DAILY ORAL 09/07/17 12:00 10/07/17 11:59 09/07/17 11:41 Methadone HCl (Methadone HCl) 70 mg DAILY ORAL 09/08/17 09:00 09/13/17 11:29 Morphine Sulfate (Morphine Sulfate) 2 mg Q4H PRN IVP Severe Pain (Pain Scale 7-10) 09/07/17 11:30 09/13/17 07:29 Nitroglycerin (Ntg) 0.4 mg Q5M X 3 DOSES PRN SL Prn Chest Pain 09/07/17 11:00 10/06/17 07:29 Ondansetron HCl (Zofran) 4 mg Q6H PRN IVP Nausea & Vomiting 09/07/17 12:00 10/06/17 11:59 Pantoprazole (Protonix) 40 mg EVERY 12 HOURS IVP 09/07/17 21:00 10/06/17 20:59 Polyethylene Glycol (Miralax) 17 gm HSPRN PRN ORAL Constipation 09/07/17 21:00 10/06/17 20:59 Sucralfate (Carafate) 1 gm FOUR TIMES A DAY ORAL 09/07/17 13:00 10/06/17 12:59 09/07/17 12:50 Temazepam (Restoril) 15 mg HSPRN PRN ORAL Insomnia 09/07/17 21:00 09/13/17 20:59 Cordell Mitchell MD Sep 07, 2017 13:48
[2017-09-07] MEDS ORDERED: D5NS 1000ml IV ONE (14:53)
[2017-09-07 16:00] VITALS: BP 131/60
[2017-09-07 20:00] VITALS: BP 144/78
[2017-09-07] MEDS ORDERED: Miralax 17gm pkt ORAL PRN (21:00)
[2017-09-07] MEDS ORDERED: Pantoprazole Inj IVP SCH (21:00)
[2017-09-08] VITALS: BP 145/80
--- NOTE | 2017-09-08 00:09 | General Progress Note ---
Assessment/Plan Assessment/Plan #. Anemia due to severe iron deficiency. --> S/P PRBC and FFP. --> Consider to begin the patient on iron once anemia is confirmed. --> In addition, obtain Gastroenterology evaluation as per primary team if necessary. --> Hx of GI bleed. #. Microcytosis, likely secondary to underlying anemia of iron deficiency. #. Leukocytosis, likely secondary to reactive process. --> Monitor and trend cbc. #. Coagulopathy, potentially secondary to history of human immunodeficiency virus and history of pulmonary disease. #. Acute kidney injury. The patient's baseline is approximately 7.3. Creatinine 0.7. #. Hypokalemia. Replete potassium. #. Constipation. Start the patient on stool softener. #. Interstitial lung disease. #. Acute tubular necrosis. Subjective Date patient seen: Sep 07, 2017 Constitutional: Denies: no symptoms, chills, diaphoresis, fever, malaise, weakness, other HEENT: Denies: no symptoms, eye pain, blurred vision, tearing, double vision, ear pain, ear discharge, nose pain, nose congestion, throat pain, throat swelling, mouth pain, mouth swelling, other Cardiovascular: Denies: no symptoms, chest pain, edema, irregular heart rate, lightheadedness, palpitations, syncope, other Respiratory: Denies: no symptoms, cough, orthopnea, shortness of breath, SOB with excertion, SOB at rest, sputum, stridor, wheezing, other Gastrointestinal/Abdominal: Denies: no symptoms, abdomen distended, abdominal pain, black stools, tarry stools, blood in stool, constipated, diarrhea, difficulty swallowing, nausea, poor appetite, poor fluid intake, rectal bleeding , vomiting, other Genitourinary: Denies: no symptoms, burning, discharge, frequency, flank pain, hematuria, incontinence, pain, urgency, other Neurologic/Psychiatric: Denies: no symptoms, anxiety, depressed, emotional problems, headache, numbness, paresthesia, pre-existing deficit, seizure, tingling, tremors, weakness, other Hematologic/Lymphatic: Reports: anemia Allergies: Coded Allergies: No Known Allergies (Unverified , 08/29/17) Subjective S/P PRBC and FFP. Objective Last 24 Hour Vital Signs Date Time Temp Pulse Resp B/P (MAP) Pulse Ox O2 Delivery O2 Flow Rate FiO2 4/15/18 00:00 98.0 69 20 145/80 100 Room Air 98.0 09/07/17 20:00 98.2 84 20 144/78 100 98.2 09/07/17 16:00 98.1 69 18 131/60 95 Room Air 98.1 09/07/17 12:00 97.8 86 20 117/64 100 97.8 09/07/17 08:00 98.2 74 19 127/74 100 Room Air 98.2 09/07/17 04:00 98.2 82 18 127/73 97 Room Air 2.0 98.2 09/07/17 04:00 76 Intake and Output 09/07/17 09/08/17 19:00 07:00 Intake Total 1196 ml Balance 1196 ml Intake Oral 696 ml IV Total 500 ml Laboratory Tests 09/07/17 08:00: White Blood Count 7.9, Red Blood Count 3.20L, Hemoglobin 9.3L, Hematocrit 26.8L , Mean Corpuscular Volume 84, Mean Corpuscular Hemoglobin 29.1, Mean Corpuscular Hemoglobin Concent 34.8, Red Cell Distribution Width 14.9H, Platelet Count 227, Mean Platelet Volume 6.8, Neutrophils (%) (Auto) 78.6H, Lymphocytes (%) (Auto) 13.1L, Monocytes (%) (Auto) 5.5, Eosinophils (%) (Auto) 2.1, Basophils (%) (Auto) 0.8, Prothrombin Time 10.3, Prothromb Time International Ratio 1.0, Activated Partial Thromboplast Time 25, Sodium Level 137, Potassium Level 3.6, Chloride Level 103, Carbon Dioxide Level 30, Anion Gap 4L, Blood Urea Nitrogen 12, Creatinine 0.9, Estimat Glomerular Filtration Rate > 60, Glucose Level 82, Calcium Level 7.9L, Phosphorus Level 2.2L, Magnesium Level 1.4L, Total Bilirubin 0.3, Aspartate Amino Transf (AST/SGOT) 29 , Alanine Aminotransferase (ALT/SGPT) 22, Alkaline Phosphatase 66, Total Protein 6.6, Albumin 2.5L, Globulin 4.1, Albumin/Globulin Ratio 0.6L, Amylase Level 112, Lipase 244 Height (Feet): 5 Height (Inches): 4.00 Weight (Pounds): 110 General Appearance: confused Respiratory/Chest: decreased breath sounds Stef Barroso MD Sep 08, 2017 00:09
[2017-09-08 04:00] VITALS: BP 133/75
[2017-09-08] MEDS: D5NS 1,000 ML IV SCH (06:51)
--- NOTE | 2017-09-08 07:07 | General Progress Note ---
Assessment/Plan Problem List: (1) Polysubstance abuse ICD Codes: F19.10 - Other psychoactive substance abuse, uncomplicated SNOMED: 391676843 (2) Gastritis ICD Codes: K29.70 - Gastritis, unspecified, without bleeding SNOMED: 4738844 (3) Ischemic colitis ICD Codes: K55.9 - Vascular disorder of intestine, unspecified SNOMED: 13761169 (4) HIV disease ICD Codes: B20 - Human immunodeficiency virus [HIV] disease SNOMED: 92541982 (5) Anemia ICD Codes: D64.9 - Anemia, unspecified SNOMED: 783414874 Qualifiers: Qualified Codes: D64.9 - Anemia, unspecified Assessment/Plan s/p EGD/colonoscopy 09/02/17 SUMMARY OF FINDINGS: 1. Gastric ulcer, status post biopsy. 2. Atrophic gastritis, status post biopsy. 3. Incomplete colonoscopic examination. See above for details. 4. Ischemic-looking areas in the rectum and sigmoid colon, status post biopsy. 5. One colonic polyp removed. 6. Hemorrhoids. H. Pylori negative pathology, see full report >> benign mucosa with ischemic changes in multiple regions of the colon. CMV IgG Ab positive RECOMMENDATIONS: defer GI procedures, see above summary. ppi BID + Carafate monitor H&H, prn transfusion needs repeat endoscopy to evaluate eradication of ulcer in 8 weeks. Also may be repeat colonoscopy at that time too when the colitis is improved. Subjective ROS Limited/Unobtainable: Yes Allergies: Coded Allergies: No Known Allergies (Unverified , 08/29/17) Subjective no event Objective Last 24 Hour Vital Signs Date Time Temp Pulse Resp B/P (MAP) Pulse Ox O2 Delivery O2 Flow Rate FiO2 09/08/17 04:00 98.3 74 20 133/75 Nasal Cannula 2.0 98.3 09/08/17 00:00 98.0 69 20 145/80 100 Room Air 98.0 09/07/17 20:00 98.2 84 20 144/78 100 98.2 09/07/17 16:00 98.1 69 18 131/60 95 Room Air 98.1 09/07/17 12:00 97.8 86 20 117/64 100 97.8 09/07/17 08:00 98.2 74 19 127/74 100 Room Air 98.2 Intake and Output 09/07/17 09/08/17 19:00 07:00 Intake Total 1196 ml 480 ml Balance 1196 ml 480 ml Intake Oral 696 ml 480 ml IV Total 500 ml # Voids 1 Laboratory Tests 09/07/17 08:00: White Blood Count 7.9, Red Blood Count 3.20L, Hemoglobin 9.3L, Hematocrit 26.8L , Mean Corpuscular Volume 84, Mean Corpuscular Hemoglobin 29.1, Mean Corpuscular Hemoglobin Concent 34.8, Red Cell Distribution Width 14.9H, Platelet Count 227, Mean Platelet Volume 6.8, Neutrophils (%) (Auto) 78.6H, Lymphocytes (%) (Auto) 13.1L, Monocytes (%) (Auto) 5.5, Eosinophils (%) (Auto) 2.1, Basophils (%) (Auto) 0.8, Prothrombin Time 10.3, Prothromb Time International Ratio 1.0, Activated Partial Thromboplast Time 25, Sodium Level 137, Potassium Level 3.6, Chloride Level 103, Carbon Dioxide Level 30, Anion Gap 4L, Blood Urea Nitrogen 12, Creatinine 0.9, Estimat Glomerular Filtration Rate > 60, Glucose Level 82, Calcium Level 7.9L, Phosphorus Level 2.2L, Magnesium Level 1.4L, Total Bilirubin 0.3, Aspartate Amino Transf (AST/SGOT) 29 , Alanine Aminotransferase (ALT/SGPT) 22, Alkaline Phosphatase 66, Total Protein 6.6, Albumin 2.5L, Globulin 4.1, Albumin/Globulin Ratio 0.6L, Amylase Level 112, Lipase 244 Height (Feet): 5 Height (Inches): 4.00 Weight (Pounds): 110 General Appearance: no apparent distress EENT: normal ENT inspection Neck: supple Cardiovascular: normal rate Respiratory/Chest: decreased breath sounds Abdomen: normal bowel sounds, non tender, soft Extremities: non-tender ABILIO GARCIA Sep 08, 2017 07:07
[2017-09-08 08:00] VITALS: BP 149/83
[2017-09-08] MEDS: Dolutegravir Sodium 50mg tab ORAL SCH (08:34)
[2017-09-08] MEDS: Sucralfate 1gm tab ORAL SCH ×4 (08:36→20:10)
[2017-09-08 10:18] LABS: EOSINOPHILS % (AUTO) 2.2 % (0.0-3.0); HEMATOCRIT 26.9 % (37.0-47.0); LYMPHOCYTES % (AUTO) 18.2 % (20.0-45.0); MEAN CORPUSCULAR VOLUME 85 FL (80-99); NEUTROPHILS % (AUTO) 70.6 % (45.0-75.0); PLATELET COUNT 279 K/UL (150-450); RED BLOOD COUNT 3.16 M/UL (4.20-5.40); WHITE BLOOD COUNT 6.2 K/UL (4.8-10.8)
[2017-09-08 11:18] LABS: ALANINE AMINOTRANSFERASE 19 U/L (12-78); ALBUMIN 2.5 G/DL (3.4-5.0); ALBUMIN/GLOBULIN RATIO 0.6 (1.0-2.7); ALKALINE PHOSPHATASE 79 U/L (46-116); ANION GAP 7 mmol/L (5-15); ASPARTATE AMINO TRANSFERASE 21 U/L (15-37); BILIRUBIN,TOTAL 0.3 MG/DL (0.2-1.0); BLOOD UREA NITROGEN 8 mg/dL (7-18); CALCIUM 8.3 MG/DL (8.5-10.1); CARBON DIOXIDE 27 MMOL/L (21-32); CHLORIDE 103 MMOL/L (98-107); CREATININE 0.8 MG/DL (0.55-1.30); PHOSPHORUS 2.6 MG/DL (2.5-4.9); POTASSIUM 3.9 MMOL/L (3.5-5.1); SODIUM 137 MMOL/L (136-145)
[2017-09-08 12:00] VITALS: BP 157/90
--- NOTE | 2017-09-08 14:08 | Pulmonology Progress Note ---
Assessment/Plan Problems: (1) GI bleed (2) Anemia (3) ATN (acute tubular necrosis) (4) Interstitial lung disease Assessment/Plan h/h better /fu GI evaluation advance diet check h/h resume anitviral meds. Subjective ROS Limited/Unobtainable: No Allergies: Coded Allergies: No Known Allergies (Unverified , 08/29/17) Objective Last 24 Hour Vital Signs Date Time Temp Pulse Resp B/P (MAP) Pulse Ox O2 Delivery O2 Flow Rate FiO2 09/08/17 12:00 98.4 74 18 157/90 100 Nasal Cannula 2.0 98.4 09/08/17 08:00 98.6 72 18 149/83 100 Nasal Cannula 2.0 98.6 09/08/17 04:00 98.3 74 20 133/75 Nasal Cannula 2.0 98.3 09/08/17 00:00 98.0 69 20 145/80 100 Room Air 98.0 09/07/17 20:00 98.2 84 20 144/78 100 98.2 09/07/17 16:00 98.1 69 18 131/60 95 Room Air 98.1 Intake and Output 09/07/17 09/08/17 19:00 07:00 Intake Total 1196 ml 480 ml Balance 1196 ml 480 ml Intake Oral 696 ml 480 ml IV Total 500 ml # Voids 1 Objective General Appearance: WD/WN HEENT: normocephalic, atraumatic Respiratory/Chest: chest wall non-tender, lungs clear Cardiovascular: normal peripheral pulses, normal rate, regular rhythm Abdomen: normal bowel sounds, soft, non tender Genitourinary: normal external genitalia Extremities: no cyanosis Skin: no rash Microbiology Date/Time Source Procedure Growth Status 09/06/17 02:30 Nasal Nares MRSA Culture - Final NO METHICILLIN RESISTANT STAPH AUREUS... Complete 09/06/17 02:30 Rectum VRE Culture - Final NO VANCOMYCIN RESISTANT ENTEROCOCCUS ... Complete Laboratory Tests 09/08/17 10:00: White Blood Count 6.2, Red Blood Count 3.16L, Hemoglobin 9.0L, Hematocrit 26.9L , Mean Corpuscular Volume 85, Mean Corpuscular Hemoglobin 28.6, Mean Corpuscular Hemoglobin Concent 33.7, Red Cell Distribution Width 15.0H, Platelet Count 279, Mean Platelet Volume 6.5, Neutrophils (%) (Auto) 70.6, Lymphocytes (%) (Auto) 18.2L, Monocytes (%) (Auto) 8.0, Eosinophils (%) (Auto) 2.2, Basophils (%) (Auto) 1.0, Prothrombin Time 10.4, Prothromb Time International Ratio 1.0, Activated Partial Thromboplast Time 26, Sodium Level 137, Potassium Level 3.9, Chloride Level 103, Carbon Dioxide Level 27, Anion Gap 7, Blood Urea Nitrogen 8, Creatinine 0.8, Estimat Glomerular Filtration Rate > 60, Glucose Level 80, Calcium Level 8.3L, Phosphorus Level 2.6, Magnesium Level 1.4L, Total Bilirubin 0.3, Aspartate Amino Transf (AST/SGOT) 21 , Alanine Aminotransferase (ALT/SGPT) 19, Alkaline Phosphatase 79, Total Protein 7.0, Albumin 2.5L, Globulin 4.5, Albumin/Globulin Ratio 0.6L Current Medications Medications (Trade) Dose Ordered Sig/Castillo Route PRN Reason Start Time Stop Time Status Last Admin Dose Admin Acetaminophen (Tylenol) 650 mg Q4H PRN ORAL fever>100.5 09/07/17 11:30 10/06/17 07:29 Al Hydroxide/Mg Hydroxide (Mylanta II) 30 ml Q6H PRN ORAL dyspepsia 09/07/17 11:30 10/06/17 11:29 Dextrose (Dextrose 50%) 25 ml STAT PRN IV Hypoglycemia 09/07/17 11:30 10/07/17 11:29 Dextrose (Dextrose 50%) 50 ml STAT PRN IV Hypoglycemia 09/07/17 11:30 10/07/17 11:29 Diphenhydramine HCl (Benadryl) 25 mg Q6H PRN ORAL Itching/Pruritis 09/07/17 11:30 10/06/17 11:29 Dolutegravir Sodium (Tivicay) 50 mg DAILY ORAL 09/07/17 12:00 10/07/17 11:59 09/08/17 08:34 Emtricitabine/ Tenofovir (Truvada 200/ 300mg) 1 tab DAILY ORAL 09/07/17 12:00 10/07/17 11:59 09/08/17 08:36 Methadone HCl (Methadone HCl) 70 mg DAILY ORAL 09/08/17 09:00 09/13/17 11:29 Morphine Sulfate (Morphine Sulfate) 2 mg Q4H PRN IVP Severe Pain (Pain Scale 7-10) 09/07/17 11:30 09/13/17 07:29 Nitroglycerin (Ntg) 0.4 mg Q5M X 3 DOSES PRN SL Prn Chest Pain 09/07/17 11:00 10/06/17 07:29 Ondansetron HCl (Zofran) 4 mg Q6H PRN IVP Nausea & Vomiting 09/07/17 12:00 10/06/17 11:59 Pantoprazole (Protonix) 40 mg EVERY 12 HOURS ORAL 09/08/17 09:00 10/08/17 08:59 09/08/17 08:35 Polyethylene Glycol (Miralax) 17 gm HSPRN PRN ORAL Constipation 09/07/17 21:00 10/06/17 20:59 Sucralfate (Carafate) 1 gm FOUR TIMES A DAY ORAL 09/07/17 13:00 10/06/17 12:59 09/08/17 12:32 Temazepam (Restoril) 15 mg HSPRN PRN ORAL Insomnia 09/07/17 21:00 09/13/17 20:59 Cordell Mitchell MD Sep 08, 2017 14:08
[2017-09-08 16:00] VITALS: BP 132/86
[2017-09-08 20:00] VITALS: BP 157/76
--- NOTE | 2017-09-08 21:36 | Infectious Diseases Prog Note ---
Assessment/Plan Assessment/Plan ASSESSMENT: The patient is a 61-year-old female with, Human immunodeficiency virus, CD4 : 343 ( 08/30 ) diagnosed in 1996 with undetectable viral load Diarrhea x3 days, SP gastrointestinal bleed. 09/02 SP EGD / colonscopy: gastric ulcer, colitis C. difficile : neg CT: Abnormal appearance of the wall of the stomach which appears thick. Questionable thickening of the left hemicolon wall. Colitis not excluded. Afebrile. Status post leukocytosis. Anemia Smoker cigarette / cocaine/ ampho abuse Ex IVDA no history of hepatitis PLAN: Monitpr pt off of AB RX cont HIV meds 08/30 SP Rocephin and Flagyl d# 5 Monitor CBC. Monitor BMP. Nephrology following GI cons following PCRB Tx Subjective Constitutional: Denies: no symptoms, fever, chills, fatigue, anorexia, drenching sweats, other Allergies: Coded Allergies: No Known Allergies (Unverified , 08/29/17) Objective Vital Signs Last 24 Hour Vital Signs Date Time Temp Pulse Resp B/P (MAP) Pulse Ox O2 Delivery O2 Flow Rate FiO2 09/08/17 16:00 98.9 73 19 132/86 95 Room Air 98.9 09/08/17 12:00 98.4 74 18 157/90 100 Nasal Cannula 2.0 98.4 09/08/17 08:00 98.6 72 18 149/83 100 Nasal Cannula 2.0 98.6 09/08/17 04:00 98.3 74 20 133/75 Nasal Cannula 2.0 98.3 09/08/17 00:00 98.0 69 20 145/80 100 Room Air 98.0 Height (Feet): 5 Height (Inches): 4.00 Weight (Pounds): 110 HEENT: mucous membranes moist Respiratory/Chest: normal breath sounds Cardiovascular: no gallop/murmur Abdomen: non distended Microbiology Date/Time Source Procedure Growth Status 09/06/17 02:30 Nasal Nares MRSA Culture - Final NO METHICILLIN RESISTANT STAPH AUREUS... Complete 09/06/17 02:30 Rectum VRE Culture - Final NO VANCOMYCIN RESISTANT ENTEROCOCCUS ... Complete Laboratory Tests Test 09/08/17 10:00 White Blood Count 6.2 K/UL (4.8-10.8) Red Blood Count 3.16 M/UL (4.20-5.40) L Hemoglobin 9.0 G/DL (12.0-16.0) L Hematocrit 26.9 % (37.0-47.0) L Mean Corpuscular Volume 85 FL (80-99) Mean Corpuscular Hemoglobin 28.6 PG (27.0-31.0) Mean Corpuscular Hemoglobin Concent 33.7 G/DL (32.0-36.0) Red Cell Distribution Width 15.0 % (11.6-14.8) H Platelet Count 279 K/UL (150-450) Mean Platelet Volume 6.5 FL (6.5-10.1) Neutrophils (%) (Auto) 70.6 % (45.0-75.0) Lymphocytes (%) (Auto) 18.2 % (20.0-45.0) L Monocytes (%) (Auto) 8.0 % (1.0-10.0) Eosinophils (%) (Auto) 2.2 % (0.0-3.0) Basophils (%) (Auto) 1.0 % (0.0-2.0) Prothrombin Time 10.4 SEC (9.30-11.50) Prothromb Time International Ratio 1.0 (0.9-1.1) Activated Partial Thromboplast Time 26 SEC (23-33) Sodium Level 137 MMOL/L (136-145) Potassium Level 3.9 MMOL/L (3.5-5.1) Chloride Level 103 MMOL/L (98-107) Carbon Dioxide Level 27 MMOL/L (21-32) Anion Gap 7 mmol/L (5-15) Blood Urea Nitrogen 8 mg/dL (7-18) Creatinine 0.8 MG/DL (0.55-1.30) Estimat Glomerular Filtration Rate > 60 mL/min (>60) Glucose Level 80 MG/DL (74-106) Calcium Level 8.3 MG/DL (8.5-10.1) L Phosphorus Level 2.6 MG/DL (2.5-4.9) Magnesium Level 1.4 MG/DL (1.8-2.4) L Total Bilirubin 0.3 MG/DL (0.2-1.0) Aspartate Amino Transf (AST/SGOT) 21 U/L (15-37) Alanine Aminotransferase (ALT/SGPT) 19 U/L (12-78) Alkaline Phosphatase 79 U/L (46-116) Total Protein 7.0 G/DL (6.4-8.2) Albumin 2.5 G/DL (3.4-5.0) L Globulin 4.5 g/dL Albumin/Globulin Ratio 0.6 (1.0-2.7) L Current Medications Medications (Trade) Dose Ordered Sig/Castillo Route PRN Reason Start Time Stop Time Status Last Admin Dose Admin Acetaminophen (Tylenol) 650 mg Q4H PRN ORAL fever>100.5 09/07/17 11:30 10/06/17 07:29 Al Hydroxide/Mg Hydroxide (Mylanta II) 30 ml Q6H PRN ORAL dyspepsia 09/07/17 11:30 10/06/17 11:29 Dextrose (Dextrose 50%) 25 ml STAT PRN IV Hypoglycemia 09/07/17 11:30 10/07/17 11:29 Dextrose (Dextrose 50%) 50 ml STAT PRN IV Hypoglycemia 09/07/17 11:30 10/07/17 11:29 Diphenhydramine HCl (Benadryl) 25 mg Q6H PRN ORAL Itching/Pruritis 09/07/17 11:30 10/06/17 11:29 Dolutegravir Sodium (Tivicay) 50 mg DAILY ORAL 09/07/17 12:00 10/07/17 11:59 09/08/17 08:34 Emtricitabine/ Tenofovir (Truvada 200/ 300mg) 1 tab DAILY ORAL 09/07/17 12:00 10/07/17 11:59 09/08/17 08:36 Methadone HCl (Methadone HCl) 70 mg DAILY ORAL 09/08/17 09:00 09/13/17 11:29 Morphine Sulfate (Morphine Sulfate) 2 mg Q4H PRN IVP Severe Pain (Pain Scale 7-10) 09/07/17 11:30 09/13/17 07:29 Nitroglycerin (Ntg) 0.4 mg Q5M X 3 DOSES PRN SL Prn Chest Pain 09/07/17 11:00 10/06/17 07:29 Ondansetron HCl (Zofran) 4 mg Q6H PRN IVP Nausea & Vomiting 09/07/17 12:00 10/06/17 11:59 Pantoprazole (Protonix) 40 mg EVERY 12 HOURS ORAL 09/08/17 09:00 10/08/17 08:59 09/08/17 20:10 Polyethylene Glycol (Miralax) 17 gm HSPRN PRN ORAL Constipation 09/07/17 21:00 10/06/17 20:59 Sucralfate (Carafate) 1 gm FOUR TIMES A DAY ORAL 09/07/17 13:00 10/06/17 12:59 09/08/17 20:10 Temazepam (Restoril) 15 mg HSPRN PRN ORAL Insomnia 09/07/17 21:00 09/13/17 20:59 Corey Hutchison MD Sep 08, 2017 21:36
[2017-09-09] VITALS: BP_SYST 140; BP_SYST 168; BP_DIAS 65; BP_DIAS 89
--- NOTE | 2017-09-09 01:12 | General Progress Note ---
Assessment/Plan Assessment/Plan #. Anemia due to severe iron deficiency. --> S/P PRBC and FFP. --> Consider to begin the patient on iron once anemia is confirmed. --> In addition, obtain Gastroenterology evaluation as per primary team if necessary. --> Hx of GI bleed. #. Microcytosis, likely secondary to underlying anemia of iron deficiency. #. Leukocytosis, likely secondary to reactive process. --> Monitor and trend cbc. #. Coagulopathy, potentially secondary to history of human immunodeficiency virus and history of pulmonary disease. #. Acute kidney injury. The patient's baseline is approximately 7.3. Creatinine 0.7. #. Hypokalemia. Replete potassium. #. Constipation. Start the patient on stool softener. #. Interstitial lung disease. #. Acute tubular necrosis. On antivirals. Subjective Date patient seen: Sep 08, 2017 Constitutional: Denies: no symptoms, chills, diaphoresis, fever, malaise, weakness, other HEENT: Denies: no symptoms, eye pain, blurred vision, tearing, double vision, ear pain, ear discharge, nose pain, nose congestion, throat pain, throat swelling, mouth pain, mouth swelling, other Cardiovascular: Denies: no symptoms, chest pain, edema, irregular heart rate, lightheadedness, palpitations, syncope, other Respiratory: Denies: no symptoms, cough, orthopnea, shortness of breath, SOB with excertion, SOB at rest, sputum, stridor, wheezing, other Gastrointestinal/Abdominal: Denies: no symptoms, abdomen distended, abdominal pain, black stools, tarry stools, blood in stool, constipated, diarrhea, difficulty swallowing, nausea, poor appetite, poor fluid intake, rectal bleeding , vomiting, other Genitourinary: Denies: no symptoms, burning, discharge, frequency, flank pain, hematuria, incontinence, pain, urgency, other Neurologic/Psychiatric: Denies: no symptoms, anxiety, depressed, emotional problems, headache, numbness, paresthesia, pre-existing deficit, seizure, tingling, tremors, weakness, other Hematologic/Lymphatic: Reports: anemia Allergies: Coded Allergies: No Known Allergies (Unverified , 08/29/17) Subjective H/H stable. No fever or chills. Objective Last 24 Hour Vital Signs Date Time Temp Pulse Resp B/P (MAP) Pulse Ox O2 Delivery O2 Flow Rate FiO2 09/08/17 20:00 98.3 74 19 157/76 99 98.3 09/08/17 16:00 98.9 73 19 132/86 95 Room Air 98.9 09/08/17 12:00 98.4 74 18 157/90 100 Nasal Cannula 2.0 98.4 09/08/17 08:00 98.6 72 18 149/83 100 Nasal Cannula 2.0 98.6 09/08/17 04:00 98.3 74 20 133/75 Nasal Cannula 2.0 98.3 Intake and Output 09/08/17 09/09/17 19:00 07:00 Intake Total 480 ml Balance 480 ml Intake Oral 480 ml # Voids 2 Laboratory Tests 09/08/17 10:00: White Blood Count 6.2, Red Blood Count 3.16L, Hemoglobin 9.0L, Hematocrit 26.9L , Mean Corpuscular Volume 85, Mean Corpuscular Hemoglobin 28.6, Mean Corpuscular Hemoglobin Concent 33.7, Red Cell Distribution Width 15.0H, Platelet Count 279, Mean Platelet Volume 6.5, Neutrophils (%) (Auto) 70.6, Lymphocytes (%) (Auto) 18.2L, Monocytes (%) (Auto) 8.0, Eosinophils (%) (Auto) 2.2, Basophils (%) (Auto) 1.0, Prothrombin Time 10.4, Prothromb Time International Ratio 1.0, Activated Partial Thromboplast Time 26, Sodium Level 137, Potassium Level 3.9, Chloride Level 103, Carbon Dioxide Level 27, Anion Gap 7, Blood Urea Nitrogen 8, Creatinine 0.8, Estimat Glomerular Filtration Rate > 60, Glucose Level 80, Calcium Level 8.3L, Phosphorus Level 2.6, Magnesium Level 1.4L, Total Bilirubin 0.3, Aspartate Amino Transf (AST/SGOT) 21 , Alanine Aminotransferase (ALT/SGPT) 19, Alkaline Phosphatase 79, Total Protein 7.0, Albumin 2.5L, Globulin 4.5, Albumin/Globulin Ratio 0.6L Height (Feet): 5 Height (Inches): 4.00 Weight (Pounds): 110 General Appearance: mild distress Neck: normal alignment Cardiovascular: normal rate Respiratory/Chest: lungs clear, normal breath sounds Abdomen: soft KLEYNBERG,JUNIOR Sep 09, 2017 01:12
[2017-09-09 04:00] VITALS: BP 158/85
[2017-09-09 08:00] VITALS: BP 168/83
[2017-09-09] MEDS: Dolutegravir Sodium 50mg tab ORAL SCH (08:39)
[2017-09-09] MEDS: Sucralfate 1gm tab ORAL SCH ×4 (08:39→21:35)
--- NOTE | 2017-09-09 10:10 | GI Progress Note ---
Assessment/Plan Problems: (1) Polysubstance abuse ICD Codes: F19.10 - Other psychoactive substance abuse, uncomplicated SNOMED: 671433275 (2) Ischemic colitis ICD Codes: K55.9 - Vascular disorder of intestine, unspecified SNOMED: 80076507 (3) Anemia due to blood loss ICD Codes: D50.0 - Iron deficiency anemia secondary to blood loss (chronic) SNOMED: 774800509 (4) Hemorrhagic colitis ICD Codes: K52.9 - Noninfective gastroenteritis and colitis, unspecified SNOMED: 51110913 (5) Severe protein-calorie malnutrition ICD Codes: E43 - Unspecified severe protein-calorie malnutrition SNOMED: 957194278 (6) Dehydration ICD Codes: E86.0 - Dehydration SNOMED: 95612995 Status: stable Status Narrative Discussed with Dr. Del Valle. Assessment/Plan s/p EGD/colonoscopy 09/02/17 SUMMARY OF FINDINGS: 1. Gastric ulcer, status post biopsy. 2. Atrophic gastritis, status post biopsy. 3. Incomplete colonoscopic examination. See above for details. 4. Ischemic-looking areas in the rectum and sigmoid colon, status post biopsy. 5. One colonic polyp removed. 6. Hemorrhoids. H. Pylori negative pathology, see full report >> benign mucosa with ischemic changes in multiple regions of the colon. CMV IgG Ab positive utox positive for amphetamines and cocaine RECOMMENDATIONS: defer GI procedures, see above summary. ppi BID + Carafate monitor H&H, prn transfusion IV medications >> transition to PO electrolyte replacement repeat endoscopy to evaluate eradication of ulcer in 8 weeks. Also may be repeat colonoscopy at that time too when the colitis is improved. Subjective Subjective feels better refusing IV placement Objective Last 24 Hour Vital Signs Date Time Temp Pulse Resp B/P (MAP) Pulse Ox O2 Delivery O2 Flow Rate FiO2 09/09/17 09:29 70 168/83 09/09/17 08:00 97.3 70 18 168/83 100 97.3 09/09/17 04:00 Room Air 09/09/17 04:00 97.1 64 18 158/85 100 97.1 09/09/17 00:00 97.3 78 18 140/65 98 97.3 09/09/17 00:00 Nasal Cannula 2.0 09/08/17 20:00 Nasal Cannula 2.0 09/08/17 20:00 98.3 74 19 157/76 99 98.3 09/08/17 16:00 98.9 73 19 132/86 95 Room Air 98.9 09/08/17 12:00 98.4 74 18 157/90 100 Nasal Cannula 2.0 98.4 Intake and Output 09/08/17 09/09/17 19:00 07:00 Intake Total 480 ml 320 ml Balance 480 ml 320 ml Intake Oral 480 ml 320 ml # Voids 2 4 Height (Feet): 5 Height (Inches): 4.00 Weight (Pounds): 110 General Appearance: WD/WN, no apparent distress, alert Cardiovascular: normal rate Respiratory/Chest: normal breath sounds, no respiratory distress Abdominal Exam: normal bowel sounds, non tender, soft Extremities: normal range of motion, non-tender Krystal Hankins N.P. Sep 09, 2017 10:10
[2017-09-09 10:39] LABS: EOSINOPHILS % (AUTO) 1.3 % (0.0-3.0); HEMATOCRIT 29.6 % (37.0-47.0); LYMPHOCYTES % (AUTO) 16.3 % (20.0-45.0); MEAN CORPUSCULAR VOLUME 86 FL (80-99); MONOCYTES % (AUTO) 6.2 % (1.0-10.0); NEUTROPHILS % (AUTO) 75.1 % (45.0-75.0); PLATELET COUNT 248 K/UL (150-450); RED BLOOD COUNT 3.45 M/UL (4.20-5.40); RED CELL DISTRIBUTION WIDTH 15.9 % (11.6-14.8)
[2017-09-09 10:50] LABS: ALANINE AMINOTRANSFERASE 16 U/L (12-78); ALBUMIN 2.5 G/DL (3.4-5.0); ALBUMIN/GLOBULIN RATIO 0.6 (1.0-2.7); ALKALINE PHOSPHATASE 73 U/L (46-116); ANION GAP 4 mmol/L (5-15); ASPARTATE AMINO TRANSFERASE 23 U/L (15-37); BILIRUBIN,TOTAL 0.3 MG/DL (0.2-1.0); BLOOD UREA NITROGEN 8 mg/dL (7-18); CALCIUM 8.5 MG/DL (8.5-10.1); CARBON DIOXIDE 29 MMOL/L (21-32); CHLORIDE 104 MMOL/L (98-107); CREATININE 0.7 MG/DL (0.55-1.30); POTASSIUM 4.4 MMOL/L (3.5-5.1); SODIUM 136 MMOL/L (136-145)
[2017-09-09 11:07] LABS: PHOSPHORUS 2.6 MG/DL (2.5-4.9)
[2017-09-09 12:00] VITALS: BP 154/83
[2017-09-09] MEDS: Magnesium Oxide 400mg tab ORAL SCH ×2 (13:03→18:25)
[2017-09-09 16:00] VITALS: BP 143/77
[2017-09-09] MEDS ORDERED: D5NS 1000ml IV ONE (17:24)
--- NOTE | 2017-09-09 19:36 | Infectious Diseases Prog Note ---
Assessment/Plan Assessment/Plan ASSESSMENT: The patient is a 61-year-old female with, Human immunodeficiency virus, CD4 : 343 ( 08/30 ) diagnosed in 1996 with undetectable viral load Diarrhea x3 days, SP gastrointestinal bleed. 09/02 SP EGD / colonscopy: gastric ulcer, colitis C. difficile : neg CT: Abnormal appearance of the wall of the stomach which appears thick. Questionable thickening of the left hemicolon wall. Colitis not excluded. Afebrile. Status post leukocytosis. Anemia Smoker cigarette / cocaine/ ampho abuse Ex IVDA no history of hepatitis PLAN: Monitpr pt off of AB RX cont HIV meds 08/30 SP Rocephin and Flagyl d# 5 Monitor CBC. Monitor BMP. Nephrology following GI cons following PCRB Tx Subjective Constitutional: Denies: no symptoms, fever, chills, fatigue, anorexia, drenching sweats, other Allergies: Coded Allergies: No Known Allergies (Unverified , 08/29/17) Objective Vital Signs Last 24 Hour Vital Signs Date Time Temp Pulse Resp B/P (MAP) Pulse Ox O2 Delivery O2 Flow Rate FiO2 09/09/17 16:00 98.3 72 18 143/77 100 Room Air 98.3 09/09/17 12:00 98.5 68 18 154/83 98 Room Air 98.5 09/09/17 09:29 70 168/83 09/09/17 08:00 97.3 70 18 168/83 100 97.3 09/09/17 04:00 Room Air 09/09/17 04:00 97.1 64 18 158/85 100 97.1 09/09/17 00:00 97.3 78 18 140/65 98 97.3 09/09/17 00:00 Nasal Cannula 2.0 09/08/17 20:00 Nasal Cannula 2.0 09/08/17 20:00 98.3 74 19 157/76 99 98.3 Height (Feet): 5 Height (Inches): 4.00 Weight (Pounds): 110 HEENT: anicteric Respiratory/Chest: no respiratory distress Cardiovascular: regular rhythm Abdomen: soft, non tender Laboratory Tests Test 09/09/17 10:20 White Blood Count 6.0 K/UL (4.8-10.8) Red Blood Count 3.45 M/UL (4.20-5.40) L Hemoglobin 10.0 G/DL (12.0-16.0) L Hematocrit 29.6 % (37.0-47.0) L Mean Corpuscular Volume 86 FL (80-99) Mean Corpuscular Hemoglobin 28.9 PG (27.0-31.0) Mean Corpuscular Hemoglobin Concent 33.7 G/DL (32.0-36.0) Red Cell Distribution Width 15.9 % (11.6-14.8) H Platelet Count 248 K/UL (150-450) Mean Platelet Volume 6.2 FL (6.5-10.1) L Neutrophils (%) (Auto) 75.1 % (45.0-75.0) H Lymphocytes (%) (Auto) 16.3 % (20.0-45.0) L Monocytes (%) (Auto) 6.2 % (1.0-10.0) Eosinophils (%) (Auto) 1.3 % (0.0-3.0) Basophils (%) (Auto) 1.0 % (0.0-2.0) Sodium Level 136 MMOL/L (136-145) Potassium Level 4.4 MMOL/L (3.5-5.1) Chloride Level 104 MMOL/L (98-107) Carbon Dioxide Level 29 MMOL/L (21-32) Anion Gap 4 mmol/L (5-15) L Blood Urea Nitrogen 8 mg/dL (7-18) Creatinine 0.7 MG/DL (0.55-1.30) Estimat Glomerular Filtration Rate > 60 mL/min (>60) Glucose Level 86 MG/DL (74-106) Calcium Level 8.5 MG/DL (8.5-10.1) Phosphorus Level 2.6 MG/DL (2.5-4.9) Magnesium Level 1.4 MG/DL (1.8-2.4) L Total Bilirubin 0.3 MG/DL (0.2-1.0) Aspartate Amino Transf (AST/SGOT) 23 U/L (15-37) Alanine Aminotransferase (ALT/SGPT) 16 U/L (12-78) Alkaline Phosphatase 73 U/L (46-116) Total Protein 7.0 G/DL (6.4-8.2) Albumin 2.5 G/DL (3.4-5.0) L Globulin 4.5 g/dL Albumin/Globulin Ratio 0.6 (1.0-2.7) L Current Medications Medications (Trade) Dose Ordered Sig/Castillo Route PRN Reason Start Time Stop Time Status Last Admin Dose Admin Acetaminophen (Tylenol) 650 mg Q4H PRN ORAL fever>100.5 09/07/17 11:30 10/06/17 07:29 Al Hydroxide/Mg Hydroxide (Mylanta II) 30 ml Q6H PRN ORAL dyspepsia 09/07/17 11:30 10/06/17 11:29 Amlodipine Besylate (Norvasc) 5 mg DAILY ORAL 09/09/17 09:45 10/09/17 09:44 09/09/17 09:29 Dextrose (Dextrose 50%) 25 ml STAT PRN IV Hypoglycemia 09/07/17 11:30 10/07/17 11:29 Dextrose (Dextrose 50%) 50 ml STAT PRN IV Hypoglycemia 09/07/17 11:30 10/07/17 11:29 Diphenhydramine HCl (Benadryl) 25 mg Q6H PRN ORAL Itching/Pruritis 09/07/17 11:30 10/06/17 11:29 Dolutegravir Sodium (Tivicay) 50 mg DAILY ORAL 09/07/17 12:00 10/07/17 11:59 09/09/17 08:39 Emtricitabine/ Tenofovir (Truvada 200/ 300mg) 1 tab DAILY ORAL 09/07/17 12:00 10/07/17 11:59 09/09/17 08:39 Magnesium Oxide (Mag-Ox 400mg) 400 mg THREE TIMES A DAY ORAL 09/09/17 13:00 09/14/17 12:59 09/09/17 18:25 Methadone HCl (Methadone HCl) 30 mg DAILY ORAL 09/10/17 09:00 09/17/17 08:59 Morphine Sulfate (Morphine Sulfate) 2 mg Q4H PRN IVP Severe Pain (Pain Scale 7-10) 09/07/17 11:30 09/13/17 07:29 Nitroglycerin (Ntg) 0.4 mg Q5M X 3 DOSES PRN SL Prn Chest Pain 09/07/17 11:00 10/06/17 07:29 Ondansetron HCl (Zofran ODT) 4 mg Q6H PRN ORAL Nausea & Vomiting 4/16/18 10:15 10/09/17 10:14 Pantoprazole (Protonix) 40 mg EVERY 12 HOURS ORAL 09/08/17 09:00 10/08/17 08:59 09/09/17 08:38 Polyethylene Glycol (Miralax) 17 gm HSPRN PRN ORAL Constipation 09/07/17 21:00 10/06/17 20:59 Sucralfate (Carafate) 1 gm FOUR TIMES A DAY ORAL 09/07/17 13:00 10/06/17 12:59 09/09/17 18:25 Temazepam (Restoril) 15 mg HSPRN PRN ORAL Insomnia 09/07/17 21:00 09/13/17 20:59 Corey Hutchison MD Sep 09, 2017 19:36
[2017-09-09 20:00] VITALS: BP 140/78
[2017-09-10 00:22] VITALS: BP 145/70
[2017-09-10 04:00] VITALS: BP 152/82
[2017-09-10 08:00] VITALS: BP 147/85
[2017-09-10] MEDS: Magnesium Oxide 400mg tab ORAL SCH ×2 (09:25→13:11)
[2017-09-10] MEDS: Dolutegravir Sodium 50mg tab ORAL SCH (09:26)
[2017-09-10] MEDS: Sucralfate 1gm tab ORAL SCH ×2 (09:26→13:11)
[2017-09-10] MEDS ORDERED: TIVICAY50 MG ORAL (11:20)
[2017-09-10] MEDS ORDERED: CARAFATE1 G1 ORAL (11:20)
[2017-09-10] MEDS ORDERED: TRUVADA1 TAB ORAL (11:20)
[2017-09-10] MEDS ORDERED: NORVASC5 MG ORAL (11:20)
[2017-09-10 12:00] VITALS: BP 150/75
--- NOTE | 2017-09-10 13:11 | Infectious Diseases Prog Note ---
Assessment/Plan Assessment/Plan ASSESSMENT: The patient is a 61-year-old female with, Human immunodeficiency virus, CD4 : 343 ( 08/30 ) diagnosed in 1996 with undetectable viral load Diarrhea x3 days, SP gastrointestinal bleed. 09/02 SP EGD / colonscopy: gastric ulcer, colitis C. difficile : neg CT: Abnormal appearance of the wall of the stomach which appears thick. Questionable thickening of the left hemicolon wall. Colitis not excluded. Afebrile. Status post leukocytosis. SP EGD : Gastritis SP Colonoscopy : T Adenoma, Isch Colitis Anemia Smoker cigarette / cocaine/ ampho abuse Ex IVDA no history of hepatitis PLAN: Monitor pt off of AB RX cont HIV meds 08/30 SP Rocephin and Flagyl d# 5 Monitor CBC. Monitor BMP. Nephrology following GI cons following : repeat endoscopy to evaluate eradication of ulcer in 8 weeks. PCRB Tx PRN Subjective Constitutional: Denies: no symptoms, fever, chills, fatigue, anorexia, drenching sweats, other Allergies: Coded Allergies: No Known Allergies (Unverified , 08/29/17) Objective Vital Signs Last 24 Hour Vital Signs Date Time Temp Pulse Resp B/P (MAP) Pulse Ox O2 Delivery O2 Flow Rate FiO2 09/10/17 12:00 98.5 68 18 150/75 99 98.5 09/10/17 09:25 73 147/85 09/10/17 08:00 98.4 73 20 147/85 99 98.4 09/10/17 04:00 97.7 74 20 152/82 100 Room Air 97.7 09/10/17 00:22 97.7 73 20 145/70 99 Room Air 97.7 09/09/17 20:00 98.4 70 18 140/78 100 Room Air 98.4 09/09/17 16:00 98.3 72 18 143/77 100 Room Air 98.3 Height (Feet): 5 Height (Inches): 4.00 Weight (Pounds): 110 HEENT: anicteric Respiratory/Chest: no respiratory distress Cardiovascular: regular rhythm Abdomen: soft, non tender Current Medications Medications (Trade) Dose Ordered Sig/Castillo Route PRN Reason Start Time Stop Time Status Last Admin Dose Admin Acetaminophen (Tylenol) 650 mg Q4H PRN ORAL fever>100.5 09/07/17 11:30 10/06/17 07:29 Al Hydroxide/Mg Hydroxide (Mylanta II) 30 ml Q6H PRN ORAL dyspepsia 09/07/17 11:30 10/06/17 11:29 Amlodipine Besylate (Norvasc) 5 mg DAILY ORAL 09/09/17 09:45 10/09/17 09:44 09/10/17 09:25 Dextrose (Dextrose 50%) 25 ml STAT PRN IV Hypoglycemia 09/07/17 11:30 10/07/17 11:29 Dextrose (Dextrose 50%) 50 ml STAT PRN IV Hypoglycemia 09/07/17 11:30 10/07/17 11:29 Diphenhydramine HCl (Benadryl) 25 mg Q6H PRN ORAL Itching/Pruritis 09/07/17 11:30 10/06/17 11:29 Dolutegravir Sodium (Tivicay) 50 mg DAILY ORAL 09/07/17 12:00 10/07/17 11:59 09/10/17 09:26 Emtricitabine/ Tenofovir (Truvada 200/ 300mg) 1 tab DAILY ORAL 09/07/17 12:00 10/07/17 11:59 09/10/17 09:25 Magnesium Oxide (Mag-Ox 400mg) 400 mg THREE TIMES A DAY ORAL 09/09/17 13:00 09/14/17 12:59 09/10/17 09:25 Methadone HCl (Methadone HCl) 30 mg DAILY ORAL 09/10/17 09:00 09/17/17 08:59 09/10/17 09:26 Morphine Sulfate (Morphine Sulfate) 2 mg Q4H PRN IVP Severe Pain (Pain Scale 7-10) 09/07/17 11:30 09/13/17 07:29 Nitroglycerin (Ntg) 0.4 mg Q5M X 3 DOSES PRN SL Prn Chest Pain 09/07/17 11:00 10/06/17 07:29 Ondansetron HCl (Zofran ODT) 4 mg Q6H PRN ORAL Nausea & Vomiting 09/09/17 10:15 10/09/17 10:14 Pantoprazole (Protonix) 40 mg EVERY 12 HOURS ORAL 09/08/17 09:00 10/08/17 08:59 09/10/17 09:25 Polyethylene Glycol (Miralax) 17 gm HSPRN PRN ORAL Constipation 09/07/17 21:00 10/06/17 20:59 Sucralfate (Carafate) 1 gm FOUR TIMES A DAY ORAL 09/07/17 13:00 10/06/17 12:59 09/10/17 09:26 Temazepam (Restoril) 15 mg HSPRN PRN ORAL Insomnia 09/07/17 21:00 09/13/17 20:59 Corey Hutchison MD Sep 10, 2017 13:11
--- NOTE | 2017-09-10 14:35 | GI Progress Note ---
Assessment/Plan Problems: (1) Polysubstance abuse ICD Codes: F19.10 - Other psychoactive substance abuse, uncomplicated SNOMED: 013868763 (2) Ischemic colitis ICD Codes: K55.9 - Vascular disorder of intestine, unspecified SNOMED: 19135278 (3) Anemia due to blood loss ICD Codes: D50.0 - Iron deficiency anemia secondary to blood loss (chronic) SNOMED: 209660617 (4) Hemorrhagic colitis ICD Codes: K52.9 - Noninfective gastroenteritis and colitis, unspecified SNOMED: 58610182 (5) Severe protein-calorie malnutrition ICD Codes: E43 - Unspecified severe protein-calorie malnutrition SNOMED: 833778975 (6) Dehydration ICD Codes: E86.0 - Dehydration SNOMED: 97629755 Status: stable Status Narrative Discussed with Dr. Del Valle. Assessment/Plan s/p EGD/colonoscopy 09/02/17 SUMMARY OF FINDINGS: 1. Gastric ulcer, status post biopsy. 2. Atrophic gastritis, status post biopsy. 3. Incomplete colonoscopic examination. See above for details. 4. Ischemic-looking areas in the rectum and sigmoid colon, status post biopsy. 5. One colonic polyp removed. 6. Hemorrhoids. H. Pylori negative pathology, see full report >> benign mucosa with ischemic changes in multiple regions of the colon. CMV IgG Ab positive utox positive for amphetamines and cocaine RECOMMENDATIONS: defer GI procedures, see above summary. ppi BID + Carafate monitor H&H, prn transfusion IV medications >> transition to PO electrolyte replacement repeat endoscopy to evaluate eradication of ulcer in 8 weeks. Also may be repeat colonoscopy at that time too when the colitis is improved. dc planning Subjective Subjective feels better refusing IV placement Objective Last 24 Hour Vital Signs Date Time Temp Pulse Resp B/P (MAP) Pulse Ox O2 Delivery O2 Flow Rate FiO2 09/10/17 12:00 98.5 68 18 150/75 99 98.5 09/10/17 09:25 73 147/85 09/10/17 08:00 98.4 73 20 147/85 99 98.4 09/10/17 04:00 97.7 74 20 152/82 100 Room Air 97.7 09/10/17 00:22 97.7 73 20 145/70 99 Room Air 97.7 09/09/17 20:00 98.4 70 18 140/78 100 Room Air 98.4 4/16/18 16:00 98.3 72 18 143/77 100 Room Air 98.3 Intake and Output 09/09/17 09/10/17 19:00 07:00 Intake Total 480 ml Balance 480 ml Intake Oral 480 ml # Voids 3 Height (Feet): 5 Height (Inches): 4.00 Weight (Pounds): 110 General Appearance: WD/WN, no apparent distress, alert Cardiovascular: normal rate Respiratory/Chest: normal breath sounds, no respiratory distress Abdominal Exam: normal bowel sounds, non tender, soft Extremities: normal range of motion, non-tender Krystal Hankins N.P. Sep 10, 2017 14:35
--- NOTE | 2017-09-10 15:14 | Pulmonology Progress Note ---
Assessment/Plan Problems: (1) GI bleed (2) Anemia (3) ATN (acute tubular necrosis) (4) Interstitial lung disease Assessment/Plan h/h better /fu GI evaluation advance diet check h/h resume anitviral meds. dc planning in progress for today, prescription written Subjective ROS Limited/Unobtainable: No HEENT: Repors: no symptoms Cardiovascular: Reports: no symptoms Gastrointestinal/Abdominal: Reports: no symptoms Allergies: Coded Allergies: No Known Allergies (Unverified , 08/29/17) Objective Last 24 Hour Vital Signs Date Time Temp Pulse Resp B/P (MAP) Pulse Ox O2 Delivery O2 Flow Rate FiO2 09/10/17 12:00 98.5 68 18 150/75 99 98.5 09/10/17 09:25 73 147/85 09/10/17 08:00 98.4 73 20 147/85 99 98.4 09/10/17 04:00 97.7 74 20 152/82 100 Room Air 97.7 09/10/17 00:22 97.7 73 20 145/70 99 Room Air 97.7 09/09/17 20:00 98.4 70 18 140/78 100 Room Air 98.4 09/09/17 16:00 98.3 72 18 143/77 100 Room Air 98.3 Intake and Output 09/09/17 09/10/17 19:00 07:00 Intake Total 480 ml Balance 480 ml Intake Oral 480 ml # Voids 3 Objective General Appearance: WD/WN HEENT: normocephalic, atraumatic Respiratory/Chest: chest wall non-tender, lungs clear Cardiovascular: normal peripheral pulses, normal rate, regular rhythm Abdomen: normal bowel sounds, soft, non tender Genitourinary: normal external genitalia Extremities: no cyanosis Skin: no rash Current Medications Medications (Trade) Dose Ordered Sig/Castillo Route PRN Reason Start Time Stop Time Status Last Admin Dose Admin Acetaminophen (Tylenol) 650 mg Q4H PRN ORAL fever>100.5 09/07/17 11:30 10/06/17 07:29 Al Hydroxide/Mg Hydroxide (Mylanta II) 30 ml Q6H PRN ORAL dyspepsia 09/07/17 11:30 10/06/17 11:29 Amlodipine Besylate (Norvasc) 5 mg DAILY ORAL 09/09/17 09:45 10/09/17 09:44 09/10/17 09:25 Dextrose (Dextrose 50%) 25 ml STAT PRN IV Hypoglycemia 09/07/17 11:30 10/07/17 11:29 Dextrose (Dextrose 50%) 50 ml STAT PRN IV Hypoglycemia 09/07/17 11:30 10/07/17 11:29 Diphenhydramine HCl (Benadryl) 25 mg Q6H PRN ORAL Itching/Pruritis 09/07/17 11:30 10/06/17 11:29 Dolutegravir Sodium (Tivicay) 50 mg DAILY ORAL 09/07/17 12:00 10/07/17 11:59 09/10/17 09:26 Emtricitabine/ Tenofovir (Truvada 200/ 300mg) 1 tab DAILY ORAL 09/07/17 12:00 10/07/17 11:59 09/10/17 09:25 Magnesium Oxide (Mag-Ox 400mg) 400 mg THREE TIMES A DAY ORAL 09/09/17 13:00 09/14/17 12:59 09/10/17 13:11 Methadone HCl (Methadone HCl) 30 mg DAILY ORAL 09/10/17 09:00 09/17/17 08:59 09/10/17 09:26 Morphine Sulfate (Morphine Sulfate) 2 mg Q4H PRN IVP Severe Pain (Pain Scale 7-10) 09/07/17 11:30 09/13/17 07:29 Nitroglycerin (Ntg) 0.4 mg Q5M X 3 DOSES PRN SL Prn Chest Pain 09/07/17 11:00 10/06/17 07:29 Ondansetron HCl (Zofran ODT) 4 mg Q6H PRN ORAL Nausea & Vomiting 09/09/17 10:15 10/09/17 10:14 Pantoprazole (Protonix) 40 mg EVERY 12 HOURS ORAL 09/08/17 09:00 10/08/17 08:59 09/10/17 09:25 Polyethylene Glycol (Miralax) 17 gm HSPRN PRN ORAL Constipation 09/07/17 21:00 10/06/17 20:59 Sucralfate (Carafate) 1 gm FOUR TIMES A DAY ORAL 09/07/17 13:00 10/06/17 12:59 09/10/17 13:11 Temazepam (Restoril) 15 mg HSPRN PRN ORAL Insomnia 09/07/17 21:00 09/13/17 20:59 Cordell Mitchell MD Sep 10, 2017 15:14
[2017-09-10 16:00] VITALS: BP 142/68
--- NOTE | 2017-09-10 23:54 | General Progress Note ---
Assessment/Plan Assessment/Plan #. Anemia due to severe iron deficiency. --> Hemoglobin stable since transfusion --> Consider to begin the patient on iron once anemia is confirmed. --> In addition, obtain Gastroenterology evaluation as per primary team if necessary. --> Hx of GI bleed. #. Microcytosis, likely secondary to underlying anemia of iron deficiency. #. Leukocytosis, likely secondary to reactive process. --> Monitor and trend cbc. #. Coagulopathy, potentially secondary to history of human immunodeficiency virus and history of pulmonary disease. #. Acute kidney injury. The patient's baseline is approximately 7.3. Creatinine 0.7. #. Hypokalemia. Replete potassium. #. Constipation. Start the patient on stool softener. #. Interstitial lung disease. #. Acute tubular necrosis. On antivirals. Subjective Date patient seen: Sep 10, 2017 Constitutional: Denies: no symptoms, chills, diaphoresis, fever, malaise, weakness, other HEENT: Denies: no symptoms, eye pain, blurred vision, tearing, double vision, ear pain, ear discharge, nose pain, nose congestion, throat pain, throat swelling, mouth pain, mouth swelling, other Cardiovascular: Denies: no symptoms, chest pain, edema, irregular heart rate, lightheadedness, palpitations, syncope, other Respiratory: Denies: no symptoms, cough, orthopnea, shortness of breath, SOB with excertion, SOB at rest, sputum, stridor, wheezing, other Gastrointestinal/Abdominal: Denies: no symptoms, abdomen distended, abdominal pain, black stools, tarry stools, blood in stool, constipated, diarrhea, difficulty swallowing, nausea, poor appetite, poor fluid intake, rectal bleeding , vomiting, other Genitourinary: Denies: no symptoms, burning, discharge, frequency, flank pain, hematuria, incontinence, pain, urgency, other Neurologic/Psychiatric: Denies: no symptoms, anxiety, depressed, emotional problems, headache, numbness, paresthesia, pre-existing deficit, seizure, tingling, tremors, weakness, other Hematologic/Lymphatic: Reports: anemia Allergies: Coded Allergies: No Known Allergies (Unverified , 08/29/17) Subjective H/H stable. No complaints of pain. Pending DC today. Objective Last 24 Hour Vital Signs Date Time Temp Pulse Resp B/P (MAP) Pulse Ox O2 Delivery O2 Flow Rate FiO2 09/10/17 16:00 98.2 72 18 142/68 99 98.2 09/10/17 12:00 98.5 68 18 150/75 99 98.5 09/10/17 09:25 73 147/85 09/10/17 08:00 98.4 73 20 147/85 99 98.4 09/10/17 04:00 97.7 74 20 152/82 100 Room Air 97.7 09/10/17 00:22 97.7 73 20 145/70 99 Room Air 97.7 Intake and Output 09/09/17 09/10/17 19:00 07:00 Intake Total 480 ml Balance 480 ml Intake Oral 480 ml # Voids 3 Height (Feet): 5 Height (Inches): 4.00 Weight (Pounds): 110 General Appearance: no apparent distress Neck: normal alignment Cardiovascular: normal rate Respiratory/Chest: lungs clear Abdomen: non tender, soft JUNIOR SEGAL Sep 10, 2017 23:54
--- NOTE | 2017-09-11 19:06 | Discharge Summary ---
Discharge Summary Discharge Summary Discharge Summary DATE OF ADMISSION: 09/06/2017 DATE OF DISCHARGE: 09/10/2017 CONSULTANTS: Dr. Alber Barroso BRIEF HOSPITAL COURSE: Patient is a 61-year-old female, with HIV presented to ED for evaluation of blood in the stools and vomitus. Per EMS blood pressure was low. On evaluation at ED she was hypotensive blood pressure was 54/43. Hemoglobin was 5.8 hematocrit was 17, BUN and creatinine were elevated to 33/1.6. Chest x-ray showed diffuse interstitial disease. She was given IV fluids and was started on blood transfusion. She was admitted for acute GI bleed. Anemia workup done showed anemia from severe iron deficiency. She was given packed RBC and FFP's. Urine toxicology was positive for amphetamine and cocaine. She had a recent EGD from prior admission that showed gastric ulcer. She was continued on proton pump inhibitors twice a day and Carafate. She was recommended repeat endoscopy which can be done as outpatient to evaluate eradication of ulcer. She was resumed on her anti-antivirals. She was counseled against illicit drug use. She had diarrhea, C. difficile was negative. CT of the abdomen showed thickening of the left hemicolon wall, colitis not excluded. Diet was advanced. Blood counts were stable. She was eventually cleared for discharged home. FINAL DIAGNOSES: Acute GI bleed Severe anemia requiring blood transfusion Anemia due to severe iron deficiency Acute tubular necrosis Interstitial lung disease HIV Diarrhea Microcytosis Leukocytosis Coagulopathy secondary to HIV Hypokalemia Constipation DISPOSITION: Patient was discharged home DISCHARGE MEDICATIONS: Refer to Discharge Medication List. DISCHARGE INSTRUCTIONS: Follow up with PCP in a week. I have been assigned to dictate discharge summary on this account, and I was not involved in the patient's management. Nancy Vázquez NP Sep 11, 2017 19:06
--- NOTE | 2017-09-13 00:10 | Diagnostic Imaging Report ---
APPROVED REPORT CPT Code: 76443 Present Symptoms Shortness of breath Comments: Pain BILATERAL: Imaging reveals a patent deep venous system bilaterally. There is no evidence of thrombus within the femoral, popliteal or tibial segments. The greater saphenous veins are also within normal limits. Doppler indicates normal spontaneous flow within these segments.
== END 2017-09-10 16:15 | disposition home or self-care (01) | DRG 253 ==
LOC: EDBD 01:14 → EMR 01:35 → 2E 02:54 → EDBEDREQ 03:43 → 4E 09-07 10:48
PROC: 30233N1 Transfusion of Nonautologous Red Blood Cells into Peripheral Vein, Percutaneous Approach (ICD-10-PCS; principal; 2017-09-06)
DX: K92.2 Gastrointestinal hemorrhage, unspecified (principal); N17.0 Acute kidney failure with tubular necrosis; E43 Unspecified severe protein-calorie malnutrition; J84.9 Interstitial pulmonary disease, unspecified; B20 Human immunodeficiency virus [HIV] disease; K55.9 Vascular disorder of intestine, unspecified; D68.9 Coagulation defect, unspecified; D62 Acute posthemorrhagic anemia; F19.10 Other psychoactive substance abuse, uncomplicated; D50.9 Iron deficiency anemia, unspecified; R19.7 Diarrhea, unspecified; E86.0 Dehydration; K52.9 Noninfective gastroenteritis and colitis, unspecified; F17.200 Nicotine dependence, unspecified, uncomplicated; F15.10 Other stimulant abuse, uncomplicated; F14.10 Cocaine abuse, uncomplicated; K29.70 Gastritis, unspecified, without bleeding; K25.9 Gastric ulcer, unspecified as acute or chronic, without hemorrhage or perforation; K64.9 Unspecified hemorrhoids
CPT/HCPCS: 36415; 71045; 80048; 80053; 80307; 81003; 82150; 83690; 83735; 84100; 85025; 85610; 85730; 86850; 86900; 86901; 86920; 86927; 87081; 93005; 93970; 99291; J2405; J8499

== ENCOUNTER 2018-05-06 15:45 | Emergency (ER) | payer MEDICAID, OTHER ==
[~2018-05-06] VITALS: Ht 154.9 cm; Wt 45.4 kg
[~2018-05-06 15:45] MED LIST changes: +CARAFATE1 G1 ORAL; +NORVASC5 MG ORAL; +TIVICAY50 MG ORAL; +TRUVADA1 TAB ORAL
--- NOTE | 2018-05-06 16:26 | Emergency Room Report ---
History of Present Illness General Chief Complaint: Lower Extremity Injury Source: Medical Record Present Illness HPI 62-year-old female patient presents the ER brought in by ambulance complaining of bilateral knee pain. States that she tripped and fell yesterday. Denies hitting her head or loss consciousness. Denies dizziness or syncope prior to fall. Reports mechanical trip and fall. Reports able to ambulate independently. Reports history of arthritis, states has not taken her arthritis medication in the past few days. Patient does not the name of arthritis medications. Denies bleeding or cuts on these. Denies fever, chest pain or shortness of breath. Allergies: Coded Allergies: No Known Allergies (Unverified , 08/29/17) Patient History Past Medical History: see triage record Reviewed Nursing Documentation: PMH: Agreed; PSxH: Agreed Nursing Documentation-PMH Past Medical History: No History, Except For Hx Hypertension: Yes Hx Asthma: Yes Hx COPD: Yes Review of Systems All Other Systems: negative except mentioned in HPI Physical Exam Vital Signs Date Time Temp Pulse Resp B/P (MAP) Pulse Ox O2 Delivery O2 Flow Rate FiO2 05/06/18 15:44 97.5 83 16 114/68 98 Room Air Sp02 EP Interpretation: reviewed, normal General Appearance: well appearing, no apparent distress, alert, GCS 15, non- toxic Head: normocephalic, atraumatic Eyes: bilateral eye normal inspection, bilateral eye PERRL ENT: hearing grossly normal, normal pharynx, no angioedema, normal voice, uvula midline, moist mucus membranes Neck: full range of motion Respiratory: lungs clear, normal breath sounds, no rhonchi, no respiratory distress, no accessory muscle use, no wheezing, speaking full sentences Cardiovascular #1: regular rate, rhythm, no edema Musculoskeletal: back normal, digits/nails normal, gait/station normal, normal range of motion, non-tender, no calf tenderness, Delma's Sign negative, other - , NVI, no laxity with varus or valgus stress, no deformity, negative bulge sign , negative Adriano, no erythema or edema, no warmth to touch, no abrasion Neurologic: alert, oriented x3, responsive, motor strength/tone normal, sensory intact Psychiatric: mood/affect normal Skin: no rash Medical Decision Making PA Attestation Dr. Worthington is my supervising Physician whom patient management has been discussed with. Diagnostic Impression: Primary Impression: Fall from ground level Additional Impression: Knee pain, bilateral ER Course Pt. presents to the ED c/o bilateral knee pain status post trip and fall from standing. Ddx considered but are not limited to fracture, sprain, strain, contusion, dislocation. No erythema, no warmth to touch, no fever, nontoxic appearing, low suspicion for septic joint. Soft compartments, no pulselessness, no pallor, no paresthesias, low suspicion for compartment syndrome at this time. Vital signs: are WNL, pt. is afebrile Ordered X-ray and pain medication. ER COURSE Provided with pain medication. An X-ray of the left knee shows no acute fracture per the preliminary reading. An X-ray of the right knee shows no acute fracture per the preliminary reading. Likely contusion causing pain symptoms. Patient able to ambulate independently, does not require crutches. Patient instructed on RICE method: rest, ice, compression, elevation. Patient instructed on rest, ice and heat. Patient instructed to be WBAT Contact information for orthopedic urgent care provided, follow-up with urgent care if unable to followup with primary care provider and get referral to commercial lawn specialist. Followup with primary care provider. Discuss referral to ortho/pain management/ PT as needed. Discuss further imaging with MRI/CT as needed. DISCHARGE: At this time pt. is stable for d/c to home. Patient is resting comfortably, in no acute distress, nontoxic appearing, talking without difficulty. Will provide printed patient care instructions, and any necessary prescriptions. Patient instructed to follow with primary care provider in 3 - 5 days and to request further follow-up as needed. Care plan and follow up instructions have been discussed with the patient prior to discharge. Take medications as directed. Patient questions asked and answered. Patient reports understanding and agreement to treatment plan. ER precautions given, patient instructed to return to ER immediately for any new or worsening of symptoms. - Please note that this Emergency Department Report was dictated using [employer] operator technology software, occasionally this can lead to erroneous entry secondary to interpretation by the dictation equipment. Other X-Ray Diagnostic Results Other X-Ray Diagnostic Results #1: X-Ray ordered: Left knee # of Views/Limited Vs Complete: 3 View Indication: Pain EP Interpretation: Yes PA Xray: Interpretation reviewed, by supervising MD, and agrees with findings. Interpretation: no dislocation, no soft tissue swelling, no fractures Impression: No acute disease PA Scribe Text Alexx Gregory PA-C Other X-Ray Diagnostic Results #2: X-Ray ordered: Right knee # of Views/Limited Vs Complete: 3 View Indication: Pain EP Interpretation: Yes PA Xray: Interpretation reviewed, by supervising MD, and agrees with findings. Interpretation: no dislocation, no soft tissue swelling, no fractures Impression: No acute disease PA Scribe Text Alexx Gregory PA-C Last Vital Signs Date Time Temp Pulse Resp B/P (MAP) Pulse Ox O2 Delivery O2 Flow Rate FiO2 05/06/18 15:44 97.5 83 16 114/68 98 Room Air Disposition: HOME, SELF-CARE Condition: Stable Scripts Acetaminophen* (TYLENOL EXTRA STRENGTH*) 500 Mg Tablet 500 MG ORAL Q8H PRN for Prn Headache/Temp > 101, #30 TAB 0 Refills Prov: Wayne Gregory 05/06/18 Patient Instructions: Fall Prevention in the Home, [id number], Knee Pain, [id number] Additional Instructions: Patient instructed to follow up with primary care provider and discuss further referral to orthopedics/physical therapy/pain management as needed. If unable to followup with PCP, followup with orthopedic urgent care in 5-7 days , call to schedule appointment. Patient instructed on RICE method: rest, ice, compression, elevation. Patient instructed to WBAT. Take medications as directed. Patient questions asked and answered. ER precautions given, patient instructed to return to ER immediately for any new or worsening of symptoms. [facility] [address] [facility] [address] [facility], [id number] [email or web address] Wayne Gregory May 06, 2018 16:26
[2018-05-06] MEDS ORDERED: traMADol 50mg tab ORAL ONE (16:30)
[2018-05-06 16:48] VITALS: BP 115/66
[2018-05-06] MEDS ORDERED: TIVICAY50 MG ORAL (16:53)
[2018-05-06] MEDS ORDERED: LIPITOR20 MG ORAL (16:53)
[2018-05-06] MEDS ORDERED: Descovy ORAL (16:53)
[2018-05-06] MEDS ORDERED: HYDROCHLOROTHIA25 MG ORAL (16:53)
[2018-05-06] MEDS ORDERED: LISINOPRIL40 MG ORAL (16:53)
[2018-05-06] MEDS ORDERED: IRON325 M1 PO (16:53)
[2018-05-06] MEDS ORDERED: MULTIVITAMINS1 EAC8 ORAL (16:53)
[2018-05-06] MEDS ORDERED: METHADONE HCL10 MG PO (16:53)
[2018-05-06] MEDS ORDERED: PROTONIX40 MG ORAL (16:53)
[2018-05-06] MEDS ORDERED: COMBIVENT RESPIM4 GM IH (16:53)
[2018-05-06] MEDS ORDERED: TYLENOL EXTRA500 MG ORAL (17:47)
[2018-05-06 18:38] VITALS: BP 120/68
--- NOTE | 2018-05-07 11:39 | Diagnostic Imaging Report ---
Indication: Knee pain Technique: 4 views of the left knee Comparison: None Findings: There is narrowing of the lateral joint compartment. There are mild degenerative changes of the patellofemoral joint. No acute fractures. No dislocations. There is questionably a small suprapatellar effusion Impression: Degenerative changes. No acute bony trauma Possible small joint effusion
--- NOTE | 2018-05-07 16:37 | Diagnostic Imaging Report ---
Indication: Knee pain Technique: 4 views of the right knee Comparison: None Findings: There is minimal medial compartmental degenerative joint space narrowing. No acute fractures. No dislocations. No suprapatellar effusion Impression: No acute bony trauma
== END 2018-05-06 19:16 | disposition home or self-care (01) ==
LOC: EDBD 15:45 → EMR 18:20
DX: M25.562 Pain in left knee (principal); M25.561 Pain in right knee; W01.0XXA Fall on same level from slipping, tripping and stumbling without subsequent striking against object, initial encounter; Y92.9 Unspecified place or not applicable; I10 Essential (primary) hypertension; J44.9 Chronic obstructive pulmonary disease, unspecified
CPT/HCPCS: 99284